=== PATIENT | female | born 1990 | race Caucasian/White ===

== ENCOUNTER 2016-08-27 10:43 | Emergency (ER) | payer MEDICARE, MEDICAID ==
[~2016-08-27 10:43] MED LIST: /AUGM875TA; ABIL5TAB; ACET65TA; ATEN25TA; AUGM500T34 PO; BACL-67 PO; CARD120T6; CEPA5.4L2 PO; DILT180C74 PO; DULO20CA; FERR28TA PO; FERR325T; FLUC150T PO; FLUO20CA8 PO; FLUOXETINE; HYDR-3713 PO; KLON0.5T; OMEP20TA PO; PRED10TA2; PRED20TA; PRED5TAB; PROT20TA11; PROZ10CA; PROZ20CA; TYLE325T5 PO; VITA100066 PO; XANA0.25; YAZ3TAB2; cepacol
[2016-08-27] MEDS ORDERED: MORPHINE 4 MG/ML 1ML SYRINGE As Ordered ONE (11:37)
[2016-08-27] MEDS ORDERED: ONDANSETRON 4MG/2ML VIAL (J2405) As Ordered ONE (11:37)
[2016-08-27 12:03] LABS: BASO % 0.5 % (0.0-1.0); EOS # 0.1 K/mm3 (0.0-0.50); EOS % 1.5 % (0.0-3.0); LARGE UNSTAINED CELL # 0.1 K/mm3 (0.0-0.4); LARGE UNSTAINED CELL % 1.7 % (0.0-4.0); LYMPH # 2.9 K/mm3 (1.5-6.5); LYMPH % 34.6 % (24.0-44.0); MEAN CORPUSCULAR HEMOGLOBIN 26.7 pg (27.0-33.0); MEAN CORPUSCULAR HGB CONC 33.5 g/dl (32.0-36.5); MEAN CORPUSCULAR VOLUME 79.7 fl (80.0-96.0); MONO # 0.3 K/mm3 (0.0-0.8); NEUTROPHILS # 4.8 K/mm3 (1.8-7.7); NEUTROPHILS % 57.8 % (36.0-66.0); PLATELET COUNT, AUTOMATED 308 k/mm3 (150-450); RED CELL DISTRIBUTION WIDTH 14.6 % (11.5-14.5); WHITE BLOOD COUNT 8.3 K/mm3 (4.0-10.0)
[2016-08-27 12:56] LABS: ALBUMIN 3.7 GM/DL (3.2-5.2); ALBUMIN/GLOBULIN RATIO 0.95 (1.00-1.93); ALKALINE PHOSPHATASE 110 U/L (45-117); ALT/SGPT 18 U/L (12-78); ANION GAP 10 MEQ/L (8-16); AST/SGOT 17 U/L (15-37); BILIRUBIN,TOTAL 0.3 MG/DL (0.2-1.0); BLOOD UREA NITROGEN 12 MG/DL (7-18); CALCIUM LEVEL 8.7 MG/DL (8.5-10.1); CARBON DIOXIDE LEVEL 24 MEQ/L (21-32); CHLORIDE LEVEL 107 MEQ/L (98-107); CREATININE FOR GFR 0.72 MG/DL (0.55-1.02); GLOMERULAR FILTRATION RATE > 60.0 (>60); GLUCOSE, FASTING 84 MG/DL (70-105); SODIUM LEVEL 141 MEQ/L (136-145); TOTAL PROTEIN 7.6 GM/DL (6.4-8.2)
--- NOTE | 2016-08-27 13:18 | ECGEPIP ---
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
--- NOTE | 2016-08-27 14:26 | EDDOCDS ---
Physician Documentation [facility] Name: Bisi Rosa Age: 25 yrs Sex: Female : 1990 Arrival Date: 08/27/2016 Time: 10:43 Bed I1 / M1 Private MD: Jian Gomez MD Disposition: 08/27/16 14:15 Discharged to Home/Self Care. Impression: Pelvic and perineal pain, Endometrial hyperplasia - Endometrial Polyp on Pelvic U/S. - Condition is Stable. - Discharge Instructions: Pelvic Pain, Female. - Prescriptions for Percocet 5- 325 mg Oral Tablet - take 1 tablet by ORAL route every 6 hours As needed MDD: 4 tabs; 10 tablet. - Medication Reconciliation, Local Pharmacy Hours form. - Follow up: Hetal Crowe; When: 1 - 2 days; Reason: Further diagnostic work-up, Recheck today's complaints, Continuance of care. Follow up: Emergency Department; Reason: Worsening of conditions. - Problem is new. - Symptoms have improved. Historical: - Allergies: hpv vaccine (Anaphylaxis); SHELLFISH (Anaphylaxis); - Home Meds: 1. baclofen 20 mg Oral tab 1 tab daily prn (Last dose: 08/26/2016) 2. diltiazem HCl 180 mg Oral cpER 1 cap once daily (Last dose: 08/26/2016) 3. Fluoxetine 30 mg Oral once daily (Last dose: 08/26/2016) 4. Motrin 800mg Oral as needed weeks ago (Last dose: 08/26/2016) 5. omeprazole 20 mg Oral cpDR 1 cap once daily (Last dose: 08/26/2016) 6. Vitamin D Oral 1000 unit daily (Last dose: 08/26/2016) - PMHx: Atrial Fib; Cerebral Palsy; Depression; thyroid nodule; - PSHx: Hamstring Lengthening; biopsy of thyroid; Pacemaker Insertion; - Social history: Smoking status: Patient states was never smoker of tobacco. No barriers to communication noted, The patient speaks fluent Macedonian, Speaks appropriately for age. - Family history: Not pertinent. - : The pt / caregiver states he / she is not on anticoagulants. Home medication list is obtained from the patient. - Exposure Risk Screening:: None identified. 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 8 in. (172.72 cm) (R); Pain 9/10; 14:13 BP 143 / 75; Pulse 75; Resp 18; Temp 98.1; Pulse Ox 98% ; Pain 2/10; jam1 10:46 Body Mass Index 34.97 (104.33 kg, 172.72 cm) mt4 MDM: 11:11 ECG WITH READING ER PHYS+CARDIAG ordered. EDMS 11:16 Financial registration complete. lg 11:20 [facility] Payment Agreement was scanned into [employer] and attached to record. lg 11:28 IV Saline Lock ordered. ef1 11:30 UA Ordered. EDMS 11:30 CBC with Diff Ordered. EDMS 11:30 Complete Comphrensive Metabolic Ordered. EDMS 11:30 Urine Culture Ordered. EDMS 11:30 -US Pelvic Non-Ob Complete Ordered. EDMS 11:30 DUPLEX SCAN LIMITED (DOPPLER)+US Ordered. EDMS 11:32 UCG by Nursing ordered. ef1 11:32 morphine 4 mg IVP once ordered. ef1 11:32 Ondansetron 4 mg IVP once ordered. ef1 12:26 CBC with Diff Reviewed. ef1 13:20 Transvaginal NON- US Ordered. EDMS 13:56 UA Reviewed. ef1 13:56 Complete Comphrensive Metabolic Reviewed. ef1 13:56 EKG-ADULT Reviewed. ef1 Point of Care Testing: Urine : 12:21 hCG Reading: Negative; Control Reading: Positive; jf3 Ranges: Administered Medications: 11:57 Drug: Ondansetron 4 mg [ondansetron HCl 2 mg/mL intravenous solution (2 mL)] Route: jf3 IVP; Site: right forearm; 12:00 Drug: morphine 4 mg [morphine 4 mg/mL intravenous cartridge (1 mL)] Route: IVP; Site: jf3 right forearm; Signatures: Dispatcher [employer] EDMS Daisy Quijano RN RN dls Ganter, LoriLee, Reg Reg Nora Cummings RN RN jo3 Priscilla Parish, PA-C PA-C ef1 Sergio Ugalde,RN RN jf3 The chart was reviewed and I authenticate all verbal orders and agree with the evaluation and treatment provided.Corrections: (The following items were deleted from the chart) 11:34 10:53 PSHx: Tubal ligation; jo3 kr3 Attachments: 11:20 [facility] Payment Agreement lg MTDD
--- NOTE | 2016-08-27 14:26 | EDDOCDS ---
Nurse's Notes [facility] Name: Taylor Schreiber Age: 25 yrs Sex: Female : 1990 Arrival Date: 08/27/2016 Time: 10:43 Bed I1 / M1 Private MD: Jian Gomez MD Diagnosis: Pelvic and perineal pain;Endometrial hyperplasia-Endometrial Polyp on Pelvic U/S Presentation: 08/27 10:49 Presenting complaint: Patient states: Left sided pelvic pain with light vaginal jo3 spotting which started a couple days ago. Risk factors: The patient reports no loss of conciousness prior to arrival. This patient has not had a hysterectomy. This patient has not begun menopause. Adult Sepsis Screening: The patient does not have new or worsening altered mentation. Patient's respiratory rate is less than 22. Systolic blood pressure is greater than 100. Patient has a qSOFA score of 0- Negative Sepsis Screen. Suicide/Homicide risk assessment- the patient denies having any suicidal and/or homicidal ideations and does not present with any other emotional, behavioral or mental health complaints. Status: Patient is not a service center appraiser or dependent. Transition of care: patient was not received from another setting of care. 10:49 Acuity: YANICK Level 3 jo3 10:49 Method Of Arrival: Walkin/Carried/Asstd jo3 Triage Assessment: 10:53 General: Appears in no apparent distress, comfortable, Behavior is appropriate for age, jo3 cooperative. Pain: Pain currently is 8 out of 10 on a pain scale. HIV screening NA for this visit Offered previously. Neurological: Level of Consciousness is awake, alert, Oriented to person, place, time. Respiratory: Airway is patent Respiratory effort is even, unlabored. 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 baclofen 20 mg Oral tab 1 tab daily prn (Last dose: 08/26/2016) 2. diltiazem HCl 180 mg Oral cpER 1 cap once daily (Last dose: 08/26/2016) 3. Fluoxetine 30 mg Oral once daily (Last dose: 08/26/2016) 4. Motrin 800mg Oral as needed weeks ago (Last dose: 08/26/2016) 5. omeprazole 20 mg Oral cpDR 1 cap once daily (Last dose: 08/26/2016) 6. Vitamin D Oral 1000 unit daily (Last dose: 08/26/2016) - PMHx: Atrial Fib; Cerebral Palsy; Depression; thyroid nodule; - PSHx: Hamstring Lengthening; biopsy of thyroid; Pacemaker Insertion; - Social history: Smoking status: Patient states was never smoker of tobacco. No barriers to communication noted, The patient speaks fluent East Timorese, Speaks appropriately for age. - Family history: Not pertinent. - : The pt / caregiver states he / she is not on anticoagulants. Home medication list is obtained from the patient. - Exposure Risk Screening:: None identified. Screenin:46 Screening information is obtained from the patient. Primary language is East Timorese. Fall jam1 risk: No risks identified. Assistance ADL's: requires no assistance with activities of daily living. Abuse/DV Screen: The patient / caregiver reports he/she is: not in a situation that causes fear, pain or injury. Nutritional screening: No deficits noted. Exposure Risk Screening: None identified. Advance Directives: Currently, there is a health care proxy, trent schreiber . There is no active DNR order. There is no living will. 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 Advance directive information has been placed on a prior [facility] medical record, but the patient/ family does not know when. Further advance directive information is declined. home support is adequate. Assessment: 12:18 General: Appears in no apparent distress, uncomfortable, Behavior is cooperative. Pain: jf3 Location: left lower quadrant. Pain: Pain currently is 8 out of 10 on a pain scale. Neurological: Level of Consciousness is awake, alert, Oriented to person, place, time. Cardiovascular: Capillary refill < 3 seconds. Cardiovascular: Chest pain is denied. Respiratory: Airway is patent Respiratory effort is even, unlabored, Respiratory pattern is regular, symmetrical, Breath sounds are clear bilaterally. Denies shortness of breath. GI: Abdomen is non- distended Bowel sounds present X 4 quads. Abd is soft and non tender X 4 quads. Denies diarrhea, nausea, vomiting. : Reports vaginal bleeding that is no vaginal bleeding. Derm: Skin is normal. Vital Signs: 10:46 BP 120 / 58 LA Sitting (auto/lg); Pulse 72 LA; Resp 18 S; Temp 98.8(O); Pulse Ox 95% on mt4 R/A; Weight 104.33 kg (R); Height 5 ft. 8 in. (172.72 cm) (R); Pain 9/10; 14:13 BP 143 / 75; Pulse 75; Resp 18; Temp 98.1; Pulse Ox 98% ; Pain 2/10; jam1 10:46 Body Mass Index 34.97 (104.33 kg, 172.72 cm) mt4 Vitals: 10:46 Log In Time: August 27, 2016 at 10:43. mt4 ED Course: 10:46 Patient visited by Emma Aj. mt4 10:46 Jian Gomez is Private Physician. mt4 10:46 Patient moved to Waiting mt4 10:47 Patient moved to Pre RCE mt4 10:51 Triage Initiated jo3 10:55 Patient visited by Nora Cummings RN. jo3 10:55 Patient moved to Triage 2 jo3 11:09 [facility]isc[facility] Parish [facility] ef1 11:09 Abhilash Fiore MD is Attending Physician. ef1 11:10 Patient visited by Priscilla Parish PA-C. ef1 11:14 Patient moved to PR2 / 26 jo3 11:19 Patient name changed from Taylor\S\Sandy\S\[place]\S\ to Taylor\S\A\S\[place]. EDMS 11:20 [facility] Payment Agreement was scanned into [employer] and attached to record. lg 11:29 Patient visited by Gracy Baltazar. sew 11:29 Patient moved to I1 / M1 sew 11:29 EKG done. (by ED staff). Reviewed by Priscilla Parish PA-C. sew 11:53 Patient visited by Priscilla Parish PA-C. ef1 11:56 Patient moved to Ultrasound sm5 12:01 Patient moved to I1 / M1 sm5 12:16 Pt greeted and oriented to ED. Patient advised of names of staff involved in care, jam1 location of call peoples, wait times and NPO status. Patient has correct armband on for positive identification. Bed in low position. Call light in reach. Side rails up X 1. Adult w/ patient. Door closed. 12:18 The patient / caregiver is instructed regarding the plan of care and ED course. jf3 12:18 Urine Culture Sent. jf3 12:18 UA Sent. jf3 12:18 Inserted saline lock: 20 gauge in right forearm The patient tolerated the procedure jf3 well. 12:26 Patient visited by Priscilla Parish PA-C. ef1 12:29 Patient moved to Ultrasound sm5 12:34 Patient moved to I1 / M1 sm5 12:47 Patient moved to Ultrasound sm5 13:22 Patient moved to I1 / M1 sm5 13:27 Patient visited by Priscilla Parish PA-C. ef1 13:43 EKG-ADULT Returned. EDMS 13:55 Patient visited by Priscilla Parish PA-C. ef1 14:15 Hetal Crowe MD is Referral Physician. ef1 14:24 Discontinued IV lock intact, bleeding controlled, pressure dressing applied, No dls redness/swelling at site. No procedures done that require assistance. Administered Medications: 11:57 Drug: Ondansetron 4 mg [ondansetron HCl 2 mg/mL intravenous solution (2 mL)] Route: 3 IVP; Site: right forearm; 12:00 Drug: morphine 4 mg [morphine 4 mg/mL intravenous cartridge (1 mL)] Route: IVP; Site: [facility] right forearm; Point of Care Testing: Urine : 12:21 hCG Reading: Negative; Control Reading: Positive; [facility] Ranges: Order Results: Lab Order: UA; SPEC'M 08/27/16 11:51 Test: APPEARANCE, URINE; Value: CLEAR; Range: CLEAR; Status: F Test: COLOR, URINE; Value: YELLOW; Range: YELLOW; Status: F Test: PH,URINE; Value: 5.0; Range: 5.0-9.0; Units: UNITS; Status: F Test: SPECIFIC GRAVITY URINE AUTO; Value: 1.023; Range: 1.002-1.035; Status: F Test: PROTEIN, URINE AUTO; Value: NEGATIVE; Range: NEGATIVE; Units: mg/dL; Status: F Test: GLUCOSE, URINE (UA) AUTO; Value: NEGATIVE; Range: NEGATIVE; Units: mg/dL; Status: F Test: KETONE, URINE AUTO; Value: NEGATIVE; Range: NEGATIVE; Units: mg/dL; Status: F Test: UROBILINOGEN, URINE AUTO; Value: 0.2; Range: 0.0-2.0; Units: mg/dL; Status: F Test: BILIRUBIN, URINE AUTO; Value: NEGATIVE; Range: NEGATIVE; Status: F Test: NITRITE, URINE AUTO; Value: NEGATIVE; Range: NEGATIVE; Status: F Test: LEUKOCYTE ESTERASE, URINE AUTO; Value: NEGATIVE; Range: NEGATIVE; Status: F Test: BLOOD, URINE BLOOD; Value: 3+; Range: NEGATIVE; Abnormal: Above high normal; Status: F Test: WBC, URINE AUTO; Value: 1; Range: 0-3; Units: /HPF; Status: F Test: RBC, URINE AUTO; Value: 4; Range: 0-3; Abnormal: Above high normal; Units: /HPF; Status: F Test: BACTERIA, URINE AUTO; Value: NEGATIVE; Range: NEGATIVE; Status: F Test: SQUAMOUS EPITHELIAL CELL UR AU; Value: 3; Range: 0-6; Units: /HPF; Status: F Test: HYALINE CAST, URINE AUTO; Value: 0; Range: 0-1; Units: /LPF; Status: F Lab Order: CBC with Diff; SPEC'M 08/27/16 11:51 Test: WHITE BLOOD COUNT; Value: 8.3; Range: 4.0-10.0; Units: K/mm3; Status: F Test: RED BLOOD COUNT; Value: 5.00; Range: 4.00-5.40; Units: M/mm3; Status: F Test: HEMOGLOBIN; Value: 13.4; Range: 12.0-16.0; Units: g/dl; Status: F Test: HEMATOCRIT; Value: 39.9; Range: 36.0-47.0; Units: %; Status: F Test: MEAN CORPUSCULAR VOLUME; Value: 79.7; Range: 80.0-96.0; Abnormal: Below low normal; Units: fl; Status: F Test: MEAN CORPUSCULAR HEMOGLOBIN; Value: 26.7; Range: 27.0-33.0; Abnormal: Below low normal; Units: pg; Status: F Test: MEAN CORPUSCULAR HGB CONC; Value: 33.5; Range: 32.0-36.5; Units: g/dl; Status: F Test: RED CELL DISTRIBUTION WIDTH; Value: 14.6; Range: 11.5-14.5; Abnormal: Above high normal; Units: %; Status: F Test: PLATELET COUNT, AUTOMATED; Value: 308; Range: 150-450; Units: k/mm3; Status: F Test: NEUTROPHILS %; Value: 57.8; Range: 36.0-66.0; Units: %; Status: F Test: LYMPH %; Value: 34.6; Range: 24.0-44.0; Units: %; Status: F Test: MONO %; Value: 4.0; Range: 0.0-5.0; Units: %; Status: F Test: EOS %; Value: 1.5; Range: 0.0-3.0; Units: %; Status: F Test: BASO %; Value: 0.5; Range: 0.0-1.0; Units: %; Status: F Test: LARGE UNSTAINED CELL %; Value: 1.7; Range: 0.0-4.0; Units: %; Status: F Test: NEUTROPHILS #; Value: 4.8; Range: 1.8-7.7; Units: K/mm3; Status: F Test: LYMPH #; Value: 2.9; Range: 1.5-6.5; Units: K/mm3; Status: F Test: MONO #; Value: 0.3; Range: 0.0-0.8; Units: K/mm3; Status: F Test: EOS #; Value: 0.1; Range: 0.0-0.50; Units: K/mm3; Status: F Test: BASO #; Value: 0.0; Range: 0.0-0.2; Units: K/mm3; Status: F Test: LARGE UNSTAINED CELL #; Value: 0.1; Range: 0.0-0.4; Units: K/mm3; Status: F Lab Order: Complete Comphrensive Metabolic; SPEC'M 08/27/16 12:32 Test: GLUCOSE, FASTING; Value: 84; Range: 70-105; Units: MG/DL; Status: F Test: BLOOD UREA NITROGEN; Value: 12; Range: 7-18; Units: MG/DL; Status: F Test: CREATININE FOR GFR; Value: 0.72; Range: 0.55-1.02; Units: MG/DL; Status: F Test: GLOMERULAR FILTRATION RATE; Value: > 60.0; Range: >60; Status: F Test: SODIUM LEVEL; Value: 141; Range: 136-145; Units: MEQ/L; Status: F Test: POTASSIUM SERUM; Value: 4.0; Range: 3.5-5.1; Units: MEQ/L; Status: F Test: CHLORIDE LEVEL; Value: 107; Range: 98-107; Units: MEQ/L; Status: F Test: CARBON DIOXIDE LEVEL; Value: 24; Range: 21-32; Units: MEQ/L; Status: F Test: ANION GAP; Value: 10; Range: 8-16; Units: MEQ/L; Status: F Test: CALCIUM LEVEL; Value: 8.7; Range: 8.5-10.1; Units: MG/DL; Status: F Test: AST/SGOT; Value: 17; Range: 15-37; Units: U/L; Status: F Test: ALT/SGPT; Value: 18; Range: 12-78; Units: U/L; Status: F Test: ALKALINE PHOSPHATASE; Value: 110; Range: 45-117; Units: U/L; Status: F Test: BILIRUBIN,TOTAL; Value: 0.3; Range: 0.2-1.0; Units: MG/DL; Status: F Test: TOTAL PROTEIN; Value: 7.6; Range: 6.4-8.2; Units: GM/DL; Status: F Test: ALBUMIN; Value: 3.7; Range: 3.2-5.2; Units: GM/DL; Status: F Test: ALBUMIN/GLOBULIN RATIO; Value: 0.95; Range: 1.00-1.93; Abnormal: Below low normal; Status: F Test Note: ; Units are mL/min/1.73 m2 Chronic Kidney Disease Staging per NKF: Stage I & II GFR >=60 Normal to Mildly Decreased Stage III GFR 30-59 Moderately Decreased Stage IV GFR 15-29 Severely Decreased Stage V GFR <15 Very Little GFR Left ESRD GFR <15 on ARTERIAL EMBALMER Radiology Order: EKG-ADULT Test: EKG-ADULT REASON FOR EXAMINATION: dizziness; Stationary ECG Study; [facility] - ED; ; Test Date: 2016-08-27; Pat Name: TAYLOR SCHREIBER Department:; Room: -; Gender: F 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 ef1 14:24 Discharge Assessment: Patient awake, alert and oriented x 3. No cognitive and/or dls functional deficits noted. Patient verbalized understanding of disposition instructions. patient administered narcotics - no. The following High Risk Discharge criteria are identified: None. Discharged to home via wheelchair, with significant other. Condition: stable. Discharge instructions given to patient, Instructed on discharge instructions, follow up and referral plans. medication usage, Demonstrated understanding of instructions, medications, Pt was receptive of discharge instructions/ teaching. Prescriptions given X 1. Ultrasound Study completed. Property sent home with patient. 14:26 Patient left the ED. dls Signatures: Dispatcher [employer] EDMS Daisy Quijano, RN RN dls Romelia Rose, MULTIPLEX OPERATOR MULTIPLEX OPERATOR jam1 Iván Alonso, Reg Reg lg Jessica Hector 5 Nora CummingsRN RN jo3 Emma Aj ut4 Priscilla Parish PA-C PA-C ef1 Gracy Baltazar Justin,RN RN jf3 Corrections: (The following items were deleted from the chart) 11:34 10:53 PSHx: Tubal ligation; jo3 kr3 MTDD
--- NOTE | 2016-08-27 20:47 | REP ---
Pelvic ultrasound non OB 08/27/2016 Indication: Pelvic pain Comparison CT abdomen pelvis 03/23/2016, pelvic ultrasound 12/23 15 performed transabdominally Technique: Color-flow Doppler, spectral wave Doppler, melendez-scale imaging used to evaluate the pelvis. Findings: Date of last menstrual period 08/01/2016. The patient is G1 P 0 Uterus measures 8.3 x 2.9 x 3.9 cm. The endometrium is 17.5 mm in thickness. Hyperechoic rounded structure within the endometrium measures 1.5 x 1.2 x 1.2 cm, concerning for endometrial polyp. The right ovary measures 3.5 x 1.9 by 2 cm. Left ovary measures 3.6 x 1.8 x 2.4 cm. There are small bilateral ovarian follicles. Perfusion is noted to the bilateral ovaries and there is no torsion bilaterally. There is no free fluid in cul-de-sac. Impression: Findings concerning for an endometrial polyp measuring 1.5 x 1.2 x 1.2 cm. MAINTENANCE CLERK consultation is recommended. Ovaries are unremarkable without torsion. No free fluid in cul-de-sac.. Signed by Lori Massey MD 08/27/2016 08:38 P
--- NOTE | 2016-08-29 15:27 | EDDOCDS ---
Nurse's Notes [facility] Name: Bisi Schreiber Age: 25 yrs Sex: Female : 1990 Arrival Date: 08/27/2016 Time: 10:43 Bed I1 / M1 Private MD: Jian Gomez MD Diagnosis: Pelvic and perineal pain;Endometrial hyperplasia-Endometrial Polyp on Pelvic U/S Presentation: 08/27 10:49 Presenting complaint: Patient states: Left sided pelvic pain with light vaginal jo3 spotting which started a couple days ago. Risk factors: The patient reports no loss of conciousness prior to arrival. This patient has not had a hysterectomy. This patient has not begun menopause. Adult Sepsis Screening: The patient does not have new or worsening altered mentation. Patient's respiratory rate is less than 22. Systolic blood pressure is greater than 100. Patient has a qSOFA score of 0- Negative Sepsis Screen. Suicide/Homicide risk assessment- the patient denies having any suicidal and/or homicidal ideations and does not present with any other emotional, behavioral or mental health complaints. Status: Patient is not a track service person or dependent. Transition of care: patient was not received from another setting of care. 10:49 Acuity: YANICK Level 3 jo3 10:49 Method Of Arrival: Walkin/Carried/Asstd jo3 Triage Assessment: 10:53 General: Appears in no apparent distress, comfortable, Behavior is appropriate for age, jo3 cooperative. Pain: Pain currently is 8 out of 10 on a pain scale. HIV screening NA for this visit Offered previously. Neurological: Level of Consciousness is awake, alert, Oriented to person, place, time. Respiratory: Airway is patent Respiratory effort is even, unlabored. 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 baclofen 20 mg Oral tab 1 tab daily prn (Last dose: 08/26/2016) 2. diltiazem HCl 180 mg Oral cpER 1 cap once daily (Last dose: 08/26/2016) 3. Fluoxetine 30 mg Oral once daily (Last dose: 08/26/2016) 4. Motrin 800mg Oral as needed weeks ago (Last dose: 08/26/2016) 5. omeprazole 20 mg Oral cpDR 1 cap once daily (Last dose: 08/26/2016) 6. Vitamin D Oral 1000 unit daily (Last dose: 08/26/2016) - PMHx: Atrial Fib; Cerebral Palsy; Depression; thyroid nodule; - PSHx: Hamstring Lengthening; biopsy of thyroid; Pacemaker Insertion; - Social history: Smoking status: Patient states was never smoker of tobacco. No barriers to communication noted, The patient speaks fluent Cymro, Speaks appropriately for age. - Family history: Not pertinent. - : The pt / caregiver states he / she is not on anticoagulants. Home medication list is obtained from the patient. - Exposure Risk Screening:: None identified. Screenin:46 Screening information is obtained from the patient. Primary language is Cymro. Fall jam1 risk: No risks identified. Assistance ADL's: requires no assistance with activities of daily living. Abuse/DV Screen: The patient / caregiver reports he/she is: not in a situation that causes fear, pain or injury. Nutritional screening: No deficits noted. Exposure Risk Screening: None identified. Advance Directives: Currently, there is a health care proxy, trent schreiber . There is no active DNR order. There is no living will. There is no Power of Rayon Coner. Advance directive information has been placed on a prior [facility] medical record, but the patient/ family does not know when. Further advance directive information is declined. home support is adequate. Assessment: 12:18 General: Appears in no apparent distress, uncomfortable, Behavior is cooperative. Pain: jf3 Location: left lower quadrant. Pain: Pain currently is 8 out of 10 on a pain scale. Neurological: Level of Consciousness is awake, alert, Oriented to person, place, time. Cardiovascular: Capillary refill < 3 seconds. Cardiovascular: Chest pain is denied. Respiratory: Airway is patent Respiratory effort is even, unlabored, Respiratory pattern is regular, symmetrical, Breath sounds are clear bilaterally. Denies shortness of breath. GI: Abdomen is non- distended Bowel sounds present X 4 quads. Abd is soft and non tender X 4 quads. Denies diarrhea, nausea, vomiting. : Reports vaginal bleeding that is no vaginal bleeding. Derm: Skin is normal. Vital Signs: 10:46 BP 120 / 58 LA Sitting (auto/lg); Pulse 72 LA; Resp 18 S; Temp 98.8(O); Pulse Ox 95% on mt4 R/A; Weight 104.33 kg (R); Height 5 ft. 8 in. (172.72 cm) (R); Pain 9/10; 14:13 BP 143 / 75; Pulse 75; Resp 18; Temp 98.1; Pulse Ox 98% ; Pain 2/10; jam1 10:46 Body Mass Index 34.97 (104.33 kg, 172.72 cm) mt4 Vitals: 10:46 Log In Time: August 27, 2016 at 10:43. mt4 ED Course: 10:46 Patient visited by Emma Aj. mt4 10:46 Jian Gomez is Private Physician. mt4 10:46 Patient moved to Waiting mt4 10:47 Patient moved to Pre RCE mt4 10:51 Triage Initiated jo3 10:55 Patient visited by Nora Cummings RN. jo3 10:55 Patient moved to Triage 2 jo3 11:09 Prisc[facility] ef1 11:09 Abhilash Fiore MD is Attending Physician. ef1 11:10 Patient visited by Priscilla Parish PA-C. ef1 11:14 Patient moved to PR2 / 26 jo3 11:19 Patient name changed from Bisi\S\[place]\S\[place]\S\ to Bisi\S\A\S\[place]. EDMS 11:20 [facility] Payment Agreement was scanned into [employer] and attached to record. lg 11:29 Patient visited by Gracy Baltazar. sew 11:29 Patient moved to I1 / M1 sew 11:29 EKG done. (by ED staff). Reviewed by Priscilla Parish PA-C. sew 11:53 Patient visited by Priscilla Parish PA-C. ef1 11:56 Patient moved to Ultrasound sm5 12:01 Patient moved to I1 / M1 sm5 12:16 Pt greeted and oriented to ED. Patient advised of names of staff involved in care, jam1 location of call peoples, wait times and NPO status. Patient has correct armband on for positive identification. Bed in low position. Call light in reach. Side rails up X 1. Adult w/ patient. Door closed. 12:18 The patient / caregiver is instructed regarding the plan of care and ED course. jf3 12:18 Urine Culture Sent. jf3 12:18 UA Sent. jf3 12:18 Inserted saline lock: 20 gauge in right forearm The patient tolerated the procedure jf3 well. 12:26 Patient visited by Priscilla Parish PA-C. ef1 12:29 Patient moved to Ultrasound sm5 12:34 Patient moved to I1 / M1 sm5 12:47 Patient moved to Ultrasound sm5 13:22 Patient moved to I1 / M1 sm5 13:27 Patient visited by Priscilla Parish PA-C. ef1 13:43 EKG-ADULT Returned. EDMS 13:55 Patient visited by Priscilla Parish PA-C. ef1 14:15 Hetal Crowe MD is Referral Physician. ef1 14:24 Discontinued IV lock intact, bleeding controlled, pressure dressing applied, No dls redness/swelling at site. No procedures done that require assistance. 17:28 ECG/EKG was scanned into [employer] and attached to record. kf3 19:35 T-Sheet-- Draft Copy was scanned into [employer] and attached to record. klr 20:58 -US Pelvic Non-Ob Complete Returned. EDMS Administered Medications: 11:57 Drug: Ondansetron 4 mg [ondansetron HCl 2 mg/mL intravenous solution (2 mL)] Route: 3 IVP; Site: right forearm; 12:00 Drug: morphine 4 mg [morphine 4 mg/mL intravenous cartridge (1 mL)] Route: IVP; Site: [facility] right forearm; Point of Care Testing: Urine : 12:21 hCG Reading: Negative; Control Reading: Positive; [facility] Ranges: Order Results: Lab Order: UA; SPEC'M 08/27/16 11:51 Test: APPEARANCE, URINE; Value: CLEAR; Range: CLEAR; Status: F Test: COLOR, URINE; Value: YELLOW; Range: YELLOW; Status: F Test: PH,URINE; Value: 5.0; Range: 5.0-9.0; Units: UNITS; Status: F Test: SPECIFIC GRAVITY URINE AUTO; Value: 1.023; Range: 1.002-1.035; Status: F Test: PROTEIN, URINE AUTO; Value: NEGATIVE; Range: NEGATIVE; Units: mg/dL; Status: F Test: GLUCOSE, URINE (UA) AUTO; Value: NEGATIVE; Range: NEGATIVE; Units: mg/dL; Status: F Test: KETONE, URINE AUTO; Value: NEGATIVE; Range: NEGATIVE; Units: mg/dL; Status: F Test: UROBILINOGEN, URINE AUTO; Value: 0.2; Range: 0.0-2.0; Units: mg/dL; Status: F Test: BILIRUBIN, URINE AUTO; Value: NEGATIVE; Range: NEGATIVE; Status: F Test: NITRITE, URINE AUTO; Value: NEGATIVE; Range: NEGATIVE; Status: F Test: LEUKOCYTE ESTERASE, URINE AUTO; Value: NEGATIVE; Range: NEGATIVE; Status: F Test: BLOOD, URINE BLOOD; Value: 3+; Range: NEGATIVE; Abnormal: Above high normal; Status: F Test: WBC, URINE AUTO; Value: 1; Range: 0-3; Units: /HPF; Status: F Test: RBC, URINE AUTO; Value: 4; Range: 0-3; Abnormal: Above high normal; Units: /HPF; Status: F Test: BACTERIA, URINE AUTO; Value: NEGATIVE; Range: NEGATIVE; Status: F Test: SQUAMOUS EPITHELIAL CELL UR AU; Value: 3; Range: 0-6; Units: /HPF; Status: F Test: HYALINE CAST, URINE AUTO; Value: 0; Range: 0-1; Units: /LPF; Status: F Lab Order: Urine Culture; SPEC'M 08/27/16 11:51 Test: URINE CULTURE; Value: <EXTERNAL COMMENT eCWMed> FULL REPORT IN LAB NOTES (eCW and Medent).; Status: F Test: URINE CULTURE; Value: URINE CULTURE RESULT NO GROWTH; Status: F Lab Order: CBC with Diff; SPEC'M 08/27/16 11:51 Test: WHITE BLOOD COUNT; Value: 8.3; Range: 4.0-10.0; Units: K/mm3; Status: F Test: RED BLOOD COUNT; Value: 5.00; Range: 4.00-5.40; Units: M/mm3; Status: F Test: HEMOGLOBIN; Value: 13.4; Range: 12.0-16.0; Units: g/dl; Status: F Test: HEMATOCRIT; Value: 39.9; Range: 36.0-47.0; Units: %; Status: F Test: MEAN CORPUSCULAR VOLUME; Value: 79.7; Range: 80.0-96.0; Abnormal: Below low normal; Units: fl; Status: F Test: MEAN CORPUSCULAR HEMOGLOBIN; Value: 26.7; Range: 27.0-33.0; Abnormal: Below low normal; Units: pg; Status: F Test: MEAN CORPUSCULAR HGB CONC; Value: 33.5; Range: 32.0-36.5; Units: g/dl; Status: F Test: RED CELL DISTRIBUTION WIDTH; Value: 14.6; Range: 11.5-14.5; Abnormal: Above high normal; Units: %; Status: F Test: PLATELET COUNT, AUTOMATED; Value: 308; Range: 150-450; Units: k/mm3; Status: F Test: NEUTROPHILS %; Value: 57.8; Range: 36.0-66.0; Units: %; Status: F Test: LYMPH %; Value: 34.6; Range: 24.0-44.0; Units: %; Status: F Test: MONO %; Value: 4.0; Range: 0.0-5.0; Units: %; Status: F Test: EOS %; Value: 1.5; Range: 0.0-3.0; Units: %; Status: F Test: BASO %; Value: 0.5; Range: 0.0-1.0; Units: %; Status: F Test: LARGE UNSTAINED CELL %; Value: 1.7; Range: 0.0-4.0; Units: %; Status: F Test: NEUTROPHILS #; Value: 4.8; Range: 1.8-7.7; Units: K/mm3; Status: F Test: LYMPH #; Value: 2.9; Range: 1.5-6.5; Units: K/mm3; Status: F Test: MONO #; Value: 0.3; Range: 0.0-0.8; Units: K/mm3; Status: F Test: EOS #; Value: 0.1; Range: 0.0-0.50; Units: K/mm3; Status: F Test: BASO #; Value: 0.0; Range: 0.0-0.2; Units: K/mm3; Status: F Test: LARGE UNSTAINED CELL #; Value: 0.1; Range: 0.0-0.4; Units: K/mm3; Status: F Lab Order: Complete Comphrensive Metabolic; SPEC'M 08/27/16 12:32 Test: GLUCOSE, FASTING; Value: 84; Range: 70-105; Units: MG/DL; Status: F Test: BLOOD UREA NITROGEN; Value: 12; Range: 7-18; Units: MG/DL; Status: F Test: CREATININE FOR GFR; Value: 0.72; Range: 0.55-1.02; Units: MG/DL; Status: F Test: GLOMERULAR FILTRATION RATE; Value: > 60.0; Range: >60; Status: F Test: SODIUM LEVEL; Value: 141; Range: 136-145; Units: MEQ/L; Status: F Test: POTASSIUM SERUM; Value: 4.0; Range: 3.5-5.1; Units: MEQ/L; Status: F Test: CHLORIDE LEVEL; Value: 107; Range: 98-107; Units: MEQ/L; Status: F Test: CARBON DIOXIDE LEVEL; Value: 24; Range: 21-32; Units: MEQ/L; Status: F Test: ANION GAP; Value: 10; Range: 8-16; Units: MEQ/L; Status: F Test: CALCIUM LEVEL; Value: 8.7; Range: 8.5-10.1; Units: MG/DL; Status: F Test: AST/SGOT; Value: 17; Range: 15-37; Units: U/L; Status: F Test: ALT/SGPT; Value: 18; Range: 12-78; Units: U/L; Status: F Test: ALKALINE PHOSPHATASE; Value: 110; Range: 45-117; Units: U/L; Status: F Test: BILIRUBIN,TOTAL; Value: 0.3; Range: 0.2-1.0; Units: MG/DL; Status: F Test: TOTAL PROTEIN; Value: 7.6; Range: 6.4-8.2; Units: GM/DL; Status: F Test: ALBUMIN; Value: 3.7; Range: 3.2-5.2; Units: GM/DL; Status: F Test: ALBUMIN/GLOBULIN RATIO; Value: 0.95; Range: 1.00-1.93; Abnormal: Below low normal; Status: F Test Note: ; Units are mL/min/1.73 m2 Chronic Kidney Disease Staging per NKF: Stage I & II GFR >=60 Normal to Mildly Decreased Stage III GFR 30-59 Moderately Decreased Stage IV GFR 15-29 Severely Decreased Stage V GFR <15 Very Little GFR Left ESRD GFR <15 on PSYCHIATRIC SECRETARY Radiology Order: EKG-ADULT Test: EKG-ADULT REASON FOR EXAMINATION: dizziness; Stationary ECG Study; [facility] - ED; ; Test Date: 2016-08-27; Pat Name: BISI SCHREIBER Department:; Room: -; 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; : 1990 Requested By: Prisclila Parish PA-C; Order Number: [id number] Reading MD: Gracy Barfield; Measurements; Intervals [place]; Rate: 71 P: 166; MT: 211 QRS: 50; QRSD: 89 T: 28; QT: 393; QTc: 429; Interpretive Statements; ELECTRONIC ATRIAL PACEMAKER; ABNORMAL RHYTHM ECG; SINUS RHYTHM; Electronically Signed On 08-27-2016 13:18:17 EST by Gracy Barfield; Radiology Order: -US Pelvic Non-Ob Complete Test: -US Pelvic Non-Ob Complete REASON FOR EXAMINATION: Adnexal Pain r/o Torsion; Pelvic ultrasound non OB 08/27/2016; ; Indication: Pelvic pain; ; Comparison CT abdomen pelvis 03/23/2016, pelvic ultrasound 12/23 15 performed; transabdominally; ; Technique: Color-flow Doppler, spectral wave Doppler, melendez-scale imaging used to; evaluate the pelvis.; ; Findings: Date of last menstrual period 08/01/2016. The patient is G1 P 0; ; Uterus measures 8.3 x 2.9 x 3.9 cm. The endometrium is 17.5 mm in thickness.; Hyperechoic rounded structure within the endometrium measures 1.5 x 1.2 x 1.2 cm,; concerning for endometrial polyp.; ; The right ovary measures 3.5 x 1.9 by 2 cm. Left ovary measures 3.6 x 1.8 x 2.4; cm. There are small bilateral ovarian follicles. Perfusion is noted to the; bilateral ovaries and there is no torsion bilaterally.; ; There is no free fluid in cul-de-sac.; ; Impression:; ; Findings concerning for an endometrial polyp measuring 1.5 x 1.2 x 1.2 cm. CONFERENCE SERVICES DIRECTOR; consultation is recommended.; ; Ovaries are unremarkable without torsion.; ; No free fluid in cul-de-sac..; ; ; ; ; ; ; Signed by; Lori Massey MD 08/27/2016 08:38 P; Outcome: 14:15 Discharge ordered by Provider. ef1 14:24 Discharge Assessment: Patient awake, alert and oriented x 3. No cognitive and/or dls functional deficits noted. Patient verbalized understanding of disposition instructions. patient administered narcotics - no. The following High Risk Discharge criteria are identified: None. Discharged to home via wheelchair, with significant other. Condition: stable. Discharge instructions given to patient, Instructed on discharge instructions, follow up and referral plans. medication usage, Demonstrated understanding of instructions, medications, Pt was receptive of discharge instructions/ teaching. Prescriptions given X 1. Ultrasound Study completed. Property sent home with patient. 14:26 Patient left the ED. dls Signatures: Dispatcher [employer] EDMS Daisy Quijano RN RN dls Romelia Rose, CLIENT ACCOUNT MANAGER CLIENT ACCOUNT MANAGER jam1 Iván Alonso, Reg Reg lg Jessica Hector sm5 Nora Cummings RN RN lina3 Allen Mane, Reg Reg kf3 Jean Marie, Emma mt4 Priscilla Parish, PA-Aurea PA-C ef1 Gracy Baltazar Justin,RN RN razia3 Shwetha Saucedo Corrections: (The following items were deleted from the chart) 11:34 10:53 PSHx: Tubal ligation; lina3 zulay3 Chart Complete MTDD
--- NOTE | 2016-08-29 15:27 | EDDOCDS ---
Physician Documentation [facility] Name: Bisi Rosa Age: 25 yrs Sex: Female : 1990 Arrival Date: 08/27/2016 Time: 10:43 Bed I1 / M1 Private MD: Jian Gomez MD Disposition: 08/27/16 14:15 Discharged to Home/Self Care. Impression: Pelvic and perineal pain, Endometrial hyperplasia - Endometrial Polyp on Pelvic U/S. - Condition is Stable. - Discharge Instructions: Pelvic Pain, Female. - Prescriptions for Percocet 5- 325 mg Oral Tablet - take 1 tablet by ORAL route every 6 hours As needed MDD: 4 tabs; 10 tablet. - Medication Reconciliation, Local Pharmacy Hours form. - Follow up: Hetal Crowe; When: 1 - 2 days; Reason: Further diagnostic work-up, Recheck today's complaints, Continuance of care. Follow up: Emergency Department; Reason: Worsening of conditions. - Problem is new. - Symptoms have improved. Historical: - Allergies: hpv vaccine (Anaphylaxis); SHELLFISH (Anaphylaxis); - Home Meds: 1. baclofen 20 mg Oral tab 1 tab daily prn (Last dose: 08/26/2016) 2. diltiazem HCl 180 mg Oral cpER 1 cap once daily (Last dose: 08/26/2016) 3. Fluoxetine 30 mg Oral once daily (Last dose: 08/26/2016) 4. Motrin 800mg Oral as needed weeks ago (Last dose: 08/26/2016) 5. omeprazole 20 mg Oral cpDR 1 cap once daily (Last dose: 08/26/2016) 6. Vitamin D Oral 1000 unit daily (Last dose: 08/26/2016) - PMHx: Atrial Fib; Cerebral Palsy; Depression; thyroid nodule; - PSHx: Hamstring Lengthening; biopsy of thyroid; Pacemaker Insertion; - Social history: Smoking status: Patient states was never smoker of tobacco. No barriers to communication noted, The patient speaks fluent Bulgarian, Speaks appropriately for age. - Family history: Not pertinent. - : The pt / caregiver states he / she is not on anticoagulants. Home medication list is obtained from the patient. - Exposure Risk Screening:: None identified. 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 8 in. (172.72 cm) (R); Pain 9/10; 14:13 BP 143 / 75; Pulse 75; Resp 18; Temp 98.1; Pulse Ox 98% ; Pain 2/10; jam1 10:46 Body Mass Index 34.97 (104.33 kg, 172.72 cm) mt4 MDM: 11:11 ECG WITH READING ER PHYS+CARDIAG ordered. EDMS 11:16 Financial registration complete. lg 11:20 [facility] [place] was scanned into [employer] and attached to record. lg 11:28 IV Saline Lock ordered. ef1 11:30 UA Ordered. EDMS 11:30 CBC with Diff Ordered. EDMS 11:30 Complete Comphrensive Metabolic Ordered. EDMS 11:30 Urine Culture Ordered. EDMS 11:30 -US Pelvic Non-Ob Complete Ordered. EDMS 11:30 DUPLEX SCAN LIMITED (DOPPLER)+US Ordered. EDMS 11:32 UCG by Nursing ordered. ef1 11:32 morphine 4 mg IVP once ordered. ef1 11:32 Ondansetron 4 mg IVP once ordered. ef1 12:26 CBC with Diff Reviewed. ef1 13:20 Transvaginal NON- US Ordered. EDMS 13:56 UA Reviewed. ef1 13:56 Complete Comphrensive Metabolic Reviewed. ef1 13:56 EKG-ADULT Reviewed. ef1 17:28 ECG/EKG was scanned into [employer] and attached to record. kf3 19:35 T-Sheet-- Draft Copy was scanned into [employer] and attached to record. klr Point of Care Testing: Urine : 12:21 hCG Reading: Negative; Control Reading: Positive; jf3 Ranges: Administered Medications: 11:57 Drug: Ondansetron 4 mg [ondansetron HCl 2 mg/mL intravenous solution (2 mL)] Route: jf3 IVP; Site: right forearm; 12:00 Drug: morphine 4 mg [morphine 4 mg/mL intravenous cartridge (1 mL)] Route: IVP; Site: jf3 right forearm; Signatures: Dispatcher [employer] EDOK Samm, Daisy, RN RN dls Iván Alonso, Reg Reg lg Nora Cummings RN RN jo3 Allen Mane, Reg Reg kf3 Priscilla Parish, CLAUDIA PAKhadijah ef1 Sergio Ugalde RN RN jf3 Shwetha Saucedo klbang The chart was reviewed and I authenticate all verbal orders and agree with the evaluation and treatment provided.Corrections: (The following items were deleted from the chart) 11:34 10:53 PSHx: Tubal ligation; jo3 kr3 Attachments: 11:20 [facility] [place] Agreement lg 17:28 ECG/EKG kf3 19:35 T-Sheet-- Draft Copy klr Chart Complete MTDD
--- NOTE | 2016-08-29 15:27 | EDDOCDS ---
Physician Documentation [facility] Name: Bisi Rosa Age: 25 yrs Sex: Female : 1990 Arrival Date: 08/27/2016 Time: 10:43 Bed I1 / M1 Private MD: Jian Gomez MD Disposition: 08/27/16 14:15 Discharged to Home/Self Care. Impression: Pelvic and perineal pain, Endometrial hyperplasia - Endometrial Polyp on Pelvic U/S. - Condition is Stable. - Discharge Instructions: Pelvic Pain, Female. - Prescriptions for Percocet 5- 325 mg Oral Tablet - take 1 tablet by ORAL route every 6 hours As needed MDD: 4 tabs; 10 tablet. - Medication Reconciliation, Local Pharmacy Hours form. - Follow up: Hetal Crowe; When: 1 - 2 days; Reason: Further diagnostic work-up, Recheck today's complaints, Continuance of care. Follow up: Emergency Department; Reason: Worsening of conditions. - Problem is new. - Symptoms have improved. Historical: - Allergies: hpv vaccine (Anaphylaxis); SHELLFISH (Anaphylaxis); - Home Meds: 1. baclofen 20 mg Oral tab 1 tab daily prn (Last dose: 08/26/2016) 2. diltiazem HCl 180 mg Oral cpER 1 cap once daily (Last dose: 08/26/2016) 3. Fluoxetine 30 mg Oral once daily (Last dose: 08/26/2016) 4. Motrin 800mg Oral as needed weeks ago (Last dose: 08/26/2016) 5. omeprazole 20 mg Oral cpDR 1 cap once daily (Last dose: 08/26/2016) 6. Vitamin D Oral 1000 unit daily (Last dose: 08/26/2016) - PMHx: Atrial Fib; Cerebral Palsy; Depression; thyroid nodule; - PSHx: Hamstring Lengthening; biopsy of thyroid; Pacemaker Insertion; - Social history: Smoking status: Patient states was never smoker of tobacco. No barriers to communication noted, The patient speaks fluent Amharic, Speaks appropriately for age. - Family history: Not pertinent. - : The pt / caregiver states he / she is not on anticoagulants. Home medication list is obtained from the patient. - Exposure Risk Screening:: None identified. 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 8 in. (172.72 cm) (R); Pain 9/10; 14:13 BP 143 / 75; Pulse 75; Resp 18; Temp 98.1; Pulse Ox 98% ; Pain 2/10; jam1 10:46 Body Mass Index 34.97 (104.33 kg, 172.72 cm) mt4 MDM: 11:11 ECG WITH READING ER PHYS+CARDIAG ordered. EDMS 11:16 Financial registration complete. lg 11:20 [place] [place] was scanned into [employer] and attached to record. lg 11:28 IV Saline Lock ordered. ef1 11:30 UA Ordered. EDMS 11:30 CBC with Diff Ordered. EDMS 11:30 Complete Comphrensive Metabolic Ordered. EDMS 11:30 Urine Culture Ordered. EDMS 11:30 -US Pelvic Non-Ob Complete Ordered. EDMS 11:30 DUPLEX SCAN LIMITED (DOPPLER)+US Ordered. EDMS 11:32 UCG by Nursing ordered. ef1 11:32 morphine 4 mg IVP once ordered. ef1 11:32 Ondansetron 4 mg IVP once ordered. ef1 12:26 CBC with Diff Reviewed. ef1 13:20 Transvaginal NON- US Ordered. EDMS 13:56 UA Reviewed. ef1 13:56 Complete Comphrensive Metabolic Reviewed. ef1 13:56 EKG-ADULT Reviewed. ef1 17:28 ECG/EKG was scanned into [employer] and attached to record. kf3 19:35 T-Sheet-- Draft Copy was scanned into [employer] and attached to record. klr Point of Care Testing: Urine : 12:21 hCG Reading: Negative; Control Reading: Positive; jf3 Ranges: Administered Medications: 11:57 Drug: Ondansetron 4 mg [ondansetron HCl 2 mg/mL intravenous solution (2 mL)] Route: jf3 IVP; Site: right forearm; 12:00 Drug: morphine 4 mg [morphine 4 mg/mL intravenous cartridge (1 mL)] Route: IVP; Site: jf3 right forearm; Signatures: Dispatcher [employer] EDDC Samm, Daisy, RN RN dls Iván Alonso, Reg Reg lg Nora Cummings RN RN jo3 Allen Mane, Reg Reg kf3 Priscilla Parish, CLAUDIA PAKhadijah ef1 Sergio Ugalde RN RN jf3 Shwetha Saucedo klbang The chart was reviewed and I authenticate all verbal orders and agree with the evaluation and treatment provided.Corrections: (The following items were deleted from the chart) 11:34 10:53 PSHx: Tubal ligation; jo3 kr3 Attachments: 11:20 [place] [place] lg 17:28 ECG/EKG kf3 19:35 T-Sheet-- Draft Copy klr Chart Complete MTDD
== END 2016-08-27 14:26 | disposition home or self-care (01) ==
LOC: M ED 10:43
DX: N84.0 Polyp of corpus uteri (principal); I48.91 Unspecified atrial fibrillation; G80.9 Cerebral palsy, unspecified; F31.9 Bipolar disorder, unspecified; Z95.0 Presence of cardiac pacemaker; Z79.899 Other long term (current) drug therapy; Z88.7 Allergy status to serum and vaccine; Z91.013 Allergy to seafood
CPT/HCPCS: 36415; 76830; 76856; 80053; 81001; 81025; 85025; 87086; 93005; 93976; 96374; 96375; 99284; J2405

== ENCOUNTER → 2016-09-08 | Day surgery (SDC) | payer MEDICARE, MEDICAID ==
[~2016-09-08] VITALS: Ht 172.7 cm; Wt 104.8 kg
[~2016-09-08] MED LIST changes: +BACL10TA PO; +IBUP800T23 PO; +IRON65TA PO; +KETOROLAC 30 MG/ML VIAL (J1885) IV SCH; +KETOROLAC 60 MG/2 ML VIAL (J1885) As Ordered ONE; +LIDOCAINE 1% SDV INJ 30 ML VIAL As Ordered ONE; +LIDOCAINE 1% SDV INJ 30 ML VIAL XX ONE; +LIDOCAINE 2% INJ 100 MG/5 ML SDV (FOR ANES.) As Ordered ONE; +LR 1,000 ML IV SCH; +MEPERIDINE INJ 25 MG/ML VIAL (J2175) IV PRN; +METOCLOPRAMIDE INJ 10MG/2ML VIAL (J2765) IV PRN; +MIDAZOLAM INJ 2 MG/2 ML VIAL (J2250) As Ordered ONE; +MORPHINE 2 MG/ML 1ML SYRINGE As Ordered ONE; +MORPHINE 2 MG/ML 1ML SYRINGE IV PRN; +MYRB25TA PO; +ONDANSETRON 4MG/2ML VIAL (J2405) IV PRN; +PERC5TAB6 PO; +PERCOCET 5MG/325MG TAB PO PRN; +PROPOFOL 200 MG/20 ML VIAL As Ordered ONE; +VICO5TAB16 PO; +fentaNYL 100 MCG/2 ML INJECTION (J3010) As Ordered ONE; +fentaNYL 100 MCG/2 ML INJECTION (J3010) IV PRN
[2016-09-08 13:46] LABS: MEAN CORPUSCULAR HGB CONC 32.2 g/dl (32.0-36.5); MEAN CORPUSCULAR VOLUME 80.9 fl (80.0-96.0); RED CELL DISTRIBUTION WIDTH 13.9 % (11.5-14.5); WHITE BLOOD COUNT 7.1 K/mm3 (4.0-10.0)
[2016-09-08 14:10] LABS: CONTROL LINE HCG INT CTR LINE PRESENT
[2016-09-08] MEDS: PERCOCET 5MG/325MG TAB PO PRN ×2 (17:40→18:10)
[2016-09-08 18:20] VITALS: BP 132/80
--- NOTE | 2016-09-08 21:00 | RO ---
DATE OF PROCEDURE: 09/08/2016 PREPROCEDURE DIAGNOSIS: Endometrial polyps. POSTPROCEDURE DIAGNOSIS: Endometrial polyps. PROCEDURE: Hysteroscopy, dilation and curettage with MyoSure. SURGEON: Hetal Crowe MD STAMP MACHINE SERVICER: None. ANESTHESIA: IV sedation with paracervical block. SPECIMENS: 1. Endometrial curetting. 2. Endometrial polyp. PREOPERATIVE ANTIBIOTICS: None. INTRAVENOUS FLUIDS: 800 mL of lactated Ringer's solution. ESTIMATED BLOOD LOSS: 5 mL. URINE OUTPUT: 300 mL. OPERATIVE FINDINGS: 3 cm endometrial polyp as well as 1-1/2 cm endometrial polyp. Bilateral ostia were visualized. DESCRIPTION OF PROCEDURE: After informed consent was obtained and written consent was reviewed, the patient was brought to the operating room where IV sedation was then obtained. She was then placed in the lithotomy position and was prepped and draped in a normal sterile fashion. A time-out in the operating room was then performed, identifying the patient, procedure to be performed as well as drug allergies. A bivalve speculum was then placed in the vagina, revealing the cervix. The anterior lip of the cervix was grasped with a single-tooth tenaculum. A paracervical block was then performed with 1% lidocaine, total 12mL. The cervix was then sequentially dilated using Hanks dilators. The hysteroscope was then advanced in the cervical os and the endometrial cavity was surveyed with the above noted findings. The MyoSure was then inserted through the hysteroscope and two endometrial polyps were morcellated with good hemostasis noted. The hysteroscope was then removed. A sharp curette was then advanced through the cervical os to the level of the fundus and the uterus was curetted in a 360-degree fashion with moderate amounts of tissue obtained. Tenaculum was then removed from the cervix. Tenaculum sites were noted to be hemostatic. Speculum was then removed. In-and-out catheter was then performed productive of 300 mL of clear urine. The patient was then taken out of the lithotomy position and was taken to recovery in stable condition. Counts were correct. MTDD
== END | disposition home or self-care (01) ==
LOC: M SDC 12:43
PROVIDERS: ATTEND Obstetrics & Gynecology
DX: N84.0 Polyp of corpus uteri (principal); G80.9 Cerebral palsy, unspecified; Z95.0 Presence of cardiac pacemaker; I44.2 Atrioventricular block, complete; K21.9 Gastro-esophageal reflux disease without esophagitis; N32.89 Other specified disorders of bladder; R06.83 Snoring; Z88.7 Allergy status to serum and vaccine; Z79.899 Other long term (current) drug therapy
CPT/HCPCS: 36415; 58558; 84703; 85027; 86850; 86900; 86901; 88305; J1885; J2250; J3010

== ENCOUNTER → 2016-12-18 | Outpatient (REF) | payer MEDICARE, MEDICAID ==
[~2016-12-18] MED LIST changes: -KETOROLAC 30 MG/ML VIAL (J1885) IV SCH; -KETOROLAC 60 MG/2 ML VIAL (J1885) As Ordered ONE; -LIDOCAINE 1% SDV INJ 30 ML VIAL As Ordered ONE; -LIDOCAINE 1% SDV INJ 30 ML VIAL XX ONE; -LIDOCAINE 2% INJ 100 MG/5 ML SDV (FOR ANES.) As Ordered ONE; -LR 1,000 ML IV SCH; +MACR100C3 PO; -MEPERIDINE INJ 25 MG/ML VIAL (J2175) IV PRN; -METOCLOPRAMIDE INJ 10MG/2ML VIAL (J2765) IV PRN; -MIDAZOLAM INJ 2 MG/2 ML VIAL (J2250) As Ordered ONE; -MORPHINE 2 MG/ML 1ML SYRINGE As Ordered ONE; -MORPHINE 2 MG/ML 1ML SYRINGE IV PRN; -ONDANSETRON 4MG/2ML VIAL (J2405) IV PRN; -PERCOCET 5MG/325MG TAB PO PRN; -PROPOFOL 200 MG/20 ML VIAL As Ordered ONE; -fentaNYL 100 MCG/2 ML INJECTION (J3010) As Ordered ONE; -fentaNYL 100 MCG/2 ML INJECTION (J3010) IV PRN
== END ==
LOC: M LAB REF 19:46
PROVIDERS: ATTEND Physician Assistant
DX: R30.0 Dysuria (principal)

== ENCOUNTER 2016-12-22 08:01 | Emergency (ER) | payer MEDICAID, MEDICARE ==
[~2016-12-22] VITALS: Ht 172.7 cm; Wt 97.5 kg
[~2016-12-22 08:01] MED LIST changes: -MACR100C3 PO
[2016-12-22] MEDS ORDERED: KETOROLAC 60 MG/2 ML VIAL (J1885) IM ONE (08:30)
[2016-12-22] MEDS ORDERED: MACR100C3 PO (09:24)
[2016-12-22 09:31] VITALS: BP 131/99
[2016-12-22 09:37] LABS: MICROSCOPIC INDICATED? MAN YES (NO)
[2016-12-22 09:43] LABS: SQUAMOUS EPITHELIAL CELL URINE MOD AMOUNT /hpf (SMALL AMT); WBC, URINE 0-1 /hpf (0-3)
[2016-12-22 09:44] LABS: BACTERIA, URINE NONE SEEN; HYALINE CAST, URINE NONE SEEN /lpf (0-1); MICROSCOPIC EXAM PERFORMED
== END 2016-12-22 09:32 | disposition home or self-care (01) ==
LOC: M ED 08:32
DX: N30.00 Acute cystitis without hematuria (principal); G89.29 Other chronic pain; Z79.899 Other long term (current) drug therapy; Z91.013 Allergy to seafood; Z88.7 Allergy status to serum and vaccine
CPT/HCPCS: 51701; 81000; 87086; 96372; 99283; J1885

== ENCOUNTER 2017-01-24 22:09 | Emergency (ER) | payer MEDICAID, MEDICARE ==
[~2017-01-24] VITALS: Ht 172.7 cm; Wt 106.4 kg
[~2017-01-24 22:09] MED LIST changes: -BACL-67 PO; -BACL10TA PO; +BACL1TAB8 PO; +BACL1TAB9 PO; +IBUP1TAB7 PO; -IBUP800T23 PO; +MACR100C43 PO; +PERC5TAB12 PO; -PERC5TAB6 PO
[2017-01-24] MEDS ORDERED: KETOROLAC 30 MG/ML VIAL (J1885) IV ONE (22:45)
[2017-01-24 22:47] LABS: INR 0.96
[2017-01-24 22:50] LABS: BASO # 0.1 K/mm3 (0.0-0.2); BASO % 0.7 % (0.0-1.0); EOS # 0.1 K/mm3 (0.0-0.50); EOS % 1.3 % (0.0-3.0); LARGE UNSTAINED CELL # 0.2 K/mm3 (0.0-0.4); LARGE UNSTAINED CELL % 1.6 % (0.0-4.0); LYMPH # 3.5 K/mm3 (1.5-6.5); LYMPH % 30.5 % (24.0-44.0); MEAN CORPUSCULAR HEMOGLOBIN 28.2 pg (27.0-33.0); MEAN CORPUSCULAR HGB CONC 34.3 g/dl (32.0-36.5); MEAN CORPUSCULAR VOLUME 82.2 fl (80.0-96.0); MONO # 0.5 K/mm3 (0.0-0.8); MONO % 4.2 % (0.0-5.0); NEUTROPHILS # 6.7 K/mm3 (1.8-7.7); NEUTROPHILS % 61.7 % (36.0-66.0); PLATELET COUNT, AUTOMATED 380 k/mm3 (150-450); RED CELL DISTRIBUTION WIDTH 13.4 % (11.5-14.5); WHITE BLOOD COUNT 10.8 K/mm3 (4.0-10.0)
[2017-01-24 22:53] LABS: CONTROL LINE HCG INT CTR LINE PRESENT
[2017-01-24 23:03] LABS: ANION GAP 10 MEQ/L (8-16); BLOOD UREA NITROGEN 12 MG/DL (7-18); CALCIUM LEVEL 8.5 MG/DL (8.5-10.1); CARBON DIOXIDE LEVEL 25 MEQ/L (21-32); CHLORIDE LEVEL 103 MEQ/L (98-107); CREATININE FOR GFR 0.66 MG/DL (0.55-1.02); GLOMERULAR FILTRATION RATE > 60.0 (>60); GLUCOSE, FASTING 109 MG/DL (70-105); POTASSIUM SERUM 3.9 MEQ/L (3.5-5.1); SODIUM LEVEL 138 MEQ/L (136-145)
[2017-01-25] MEDS ORDERED: diphenhydrAMINE INJ 50MG/ML VIAL (J1200) IV STA (00:11)
[2017-01-25] MEDS ORDERED: dexameTHASONE 20 MG/5 ML VIAL (J1100) IV ONE (00:15)
[2017-01-25] MEDS ORDERED: ISOVUE-370 76% 100ML VIAL (Q9967) As Ordered ONE (00:27)
--- NOTE | 2017-01-25 01:30 | REPUSA ---
CLINICAL HISTORY: Chest pain, exclude PE. TECHNIQUE: Multiple incremental axial, coronal and oblique images are obtained from the thoracic inle t to the upper abdomen. Intravenous contrast material was administered as per pulmonary embolism prot ocol. COMMENTS: 3.5 cm hypodense lesion of the right thyroid lobe. Pacemaker wires are in good position. Bilateral basilar dependent atelectatic pulmonary changes. Mild cardiomegaly. There is excellent opacification of pulmonary arterial system without evidence for pulmonary embolism . Aorta is of normal caliber without evidence for dissection or aneurysm. There is no evidence of pleural or parenchymal mass. There are no pleural effusions. There is no evid ence of hilar or mediastinal lymphadenopathy. Images of the upper abdomen demonstrate no evidence of adrenal mass. The bony structures are free of lytic or blastic lesions. IMPRESSION: No evidence for pulmonary embolism. Cardiomegaly. Pacemaker wires are in good position. Minimal basilar dependent atelectatic pulmonary changes. Thank you for your kind referral of this patient.
[2017-01-25 02:41] VITALS: BP 119/76
--- NOTE | 2017-01-25 05:42 | ECGEPIP ---
Stationary ECG Study [facility] - ED Test Date: 2017-01-24 Pat Name: TAYLOR ALCANTARA Department: Room: - Gender: F Surgical Specialist: lucila : 1990 Requested By: KENNY DUBOIS Order Number: [id number] Reading MD: Jose A Vieyra Measurements Intervals Forest Rate: 79 P: 36 AK: 147 QRS: 56 QRSD: 89 T: 44 QT: 386 QTc: 444 Interpretive Statements SINUS RHYTHM Electronically Signed On 01-25-2017 5:42:08 EDT by Jose A Vieyra
== END 2017-01-25 03:28 | disposition home or self-care (01) ==
LOC: EDBD 22:09 → M ED 22:09
DX: R07.1 Chest pain on breathing (principal); I48.91 Unspecified atrial fibrillation; Z95.0 Presence of cardiac pacemaker; K21.9 Gastro-esophageal reflux disease without esophagitis; F32.9 Major depressive disorder, single episode, unspecified; Z79.899 Other long term (current) drug therapy; Z88.1 Allergy status to other antibiotic agents; Z91.013 Allergy to seafood; Z88.7 Allergy status to serum and vaccine
CPT/HCPCS: 36600; 71275; 80048; 82550; 82553; 84703; 85025; 85610; 85730; 93005; 96374; 96375; 99284; J1100; J1200; J1885; Q9967

== ENCOUNTER 2017-03-02 02:54 | Emergency (ER) | payer MEDICAID ==
[~2017-03-02] VITALS: Ht 172.7 cm; Wt 104.1 kg
[2017-03-02] MEDS ORDERED: NS 1,000 ML IV ONE (04:00)
[2017-03-02] MEDS ORDERED: KETOROLAC 30 MG/ML VIAL (J1885) IV ONE (04:00)
[2017-03-02] MEDS ORDERED: GASTROGRAFIN SOLUTION 30ML PO ONE (04:10)
[2017-03-02 04:27] LABS: BASO # 0.1 K/mm3 (0.0-0.2); BASO % 0.5 % (0.0-1.0); EOS # 0.3 K/mm3 (0.0-0.50); EOS % 1.9 % (0.0-3.0); LARGE UNSTAINED CELL # 0.2 K/mm3 (0.0-0.4); LARGE UNSTAINED CELL % 1.3 % (0.0-4.0); LYMPH # 3.4 K/mm3 (1.5-6.5); LYMPH % 21.2 % (24.0-44.0); MEAN CORPUSCULAR HEMOGLOBIN 28.1 pg (27.0-33.0); MEAN CORPUSCULAR HGB CONC 33.4 g/dl (32.0-36.5); MEAN CORPUSCULAR VOLUME 84.1 fl (80.0-96.0); MONO # 0.7 K/mm3 (0.0-0.8); MONO % 4.4 % (0.0-5.0); NEUTROPHILS # 10.8 K/mm3 (1.8-7.7); NEUTROPHILS % 70.7 % (36.0-66.0); PLATELET COUNT, AUTOMATED 308 k/mm3 (150-450); RED CELL DISTRIBUTION WIDTH 13.5 % (11.5-14.5); WHITE BLOOD COUNT 15.2 K/mm3 (4.0-10.0)
[2017-03-02] MEDS ORDERED: GASTROGRAFIN SOLUTION 30ML (Q9963) PO ONE (04:40)
[2017-03-02 04:42] LABS: CONTROL LINE HCG INT CTR LINE PRESENT
[2017-03-02] MEDS ORDERED: GASTROGRAFIN SOLUTION 30ML (Q9963) As Ordered ONE (04:48)
[2017-03-02 04:50] LABS: ALBUMIN/GLOBULIN RATIO 1.08 (1.00-1.93); ALKALINE PHOSPHATASE 102 U/L (45-117); ALT/SGPT 19 U/L (12-78); AMYLASE 26 U/L (25-115); ANION GAP 12 MEQ/L (8-16); AST/SGOT 22 U/L (15-37); BILIRUBIN,DIRECT < 0.1 MG/DL (0.0-0.2); BILIRUBIN,TOTAL 0.3 MG/DL (0.2-1.0); BLOOD UREA NITROGEN 13 MG/DL (7-18); CALCIUM LEVEL 8.7 MG/DL (8.5-10.1); CARBON DIOXIDE LEVEL 25 MEQ/L (21-32); CHLORIDE LEVEL 102 MEQ/L (98-107); CREATININE FOR GFR 0.62 MG/DL (0.55-1.02); GLOMERULAR FILTRATION RATE > 60.0 (>60); GLUCOSE, FASTING 101 MG/DL (70-105); SODIUM LEVEL 139 MEQ/L (136-145); TOTAL PROTEIN 7.7 GM/DL (6.4-8.2)
[2017-03-02] MEDS ORDERED: MORPHINE 4 MG/ML 1ML SYRINGE IV ONE ×2 (06:00→08:30)
[2017-03-02] MEDS ORDERED: METOCLOPRAMIDE INJ 10MG/2ML VIAL (J2765) IV ONE (06:00)
--- NOTE | 2017-03-02 08:00 | REPUSA ---
CLINICAL HISTORY: Abdominal pain. TECHNIQUE: Multiple axial, sagittal and coronal CT images were obtained through the abdomen and pelvi s without administration of IV contrast material. Patient ingested oral contrast. COMMENTS: Mild thickening of the terminal ileum. The liver is moderately enlarged with decreased attenuation without mass or defect. There is no intra or extrahepatic biliary ductal dilatation. The spleen is normal. The gallbladder is within normal li mits. The pancreas is of normal contour and attenuation characteristics. There is no evidence of adre nal mass. The kidneys are normal in size, shape and configuration. No renal or ureteral calculi are identified. There is no hydroureter or hydronephrosis. There is no evidence for appendicitis. No evidence for small or large bowel obstruction. There is no evidence of abdominal ascites or lymphadenopathy. There is no evidence of intrinsic or extrinsic bladder mass. There is no pelvic ascites or lymphadeno luis enrique. Images of the lung bases show no evidence of pleural or parenchymal mass. There are no pleural effusi ons. The bony structures are free of lytic or blastic lesions. IMPRESSION: Mild thickening of the terminal ileum. Underdistention, spasm versus mild enteritis. Hepatomegaly with fatty liver infiltration. Uncomplicated colonic diverticulosis. Mild thickening of the bladder. Thank you for your kind referral of this patient.
--- NOTE | 2017-03-02 09:04 | ED PDOC ---
Post-Departure Follow-Up radiology rpeort faxed to Gracy Broderick MD Mar 02, 2017 09:04
[2017-03-02] MEDS ORDERED: NORCOTAB PO (09:26)
[2017-03-02 09:34] VITALS: BP 132/63
--- NOTE | 2017-03-02 10:03 | REP ---
PELVIC ULTRASOUND: Real-time sonographic evaluation of the pelvis performed utilizing transabdominal and endovaginal technique. The bladder measures 5.1 x 4.6 x 8.9 cm. Uterus measures 10.7 x 3.8 x 3.7 cm. Endometrial thickness is 9 mm. Ovaries are normal in size and echotexture, right ovary measuring 3.4 x 2.3 x 3.1 cm and left ovary 2.2 x 2.2 x 1.9 cm. There is no adnexal mass. There is no free fluid. There is no evidence of ovarian torsion with blood flow seen in each ovary with duplex Doppler evaluation, resistive index right ovary 0.36 and left ovary 0.44. There is fluid in the cervical canal. IMPRESSION: Fluid noted in the cervical canal. No evidence of ovarian mass, torsion or free fluid. Signed by Lyndon Tony MD 03/02/2017 10:06 A
== END 2017-03-02 09:35 | disposition home or self-care (01) ==
LOC: M ED 02:54
DX: R10.11 Right upper quadrant pain (principal); R10.31 Right lower quadrant pain; D50.9 Iron deficiency anemia, unspecified; F32.9 Major depressive disorder, single episode, unspecified; K21.9 Gastro-esophageal reflux disease without esophagitis; I48.91 Unspecified atrial fibrillation; Z95.0 Presence of cardiac pacemaker; I44.0 Atrioventricular block, first degree; G80.9 Cerebral palsy, unspecified; Z79.899 Other long term (current) drug therapy; Z88.1 Allergy status to other antibiotic agents; Z91.013 Allergy to seafood; Z88.7 Allergy status to serum and vaccine
CPT/HCPCS: 74176; 76830; 76856; 80048; 80076; 81001; 82150; 83690; 84703; 85025; 87086; 93976; 96361; 96374; 96375; 96376; 99283; J1885; J2765; Q9963

== ENCOUNTER 2017-03-06 01:31 | Emergency (ER) | payer MEDICAID ==
[~2017-03-06 01:31] MED LIST changes: +NORCOTAB PO
== END 2017-03-06 02:35 | disposition left against medical advice (07) ==
LOC: M ED 01:31
DX: R10.9 Unspecified abdominal pain (principal); Z53.29 Procedure and treatment not carried out because of patient's decision for other reasons

== ENCOUNTER → 2017-03-07 | Outpatient (REF) | payer MEDICAID ==
[2017-03-07 12:55] LABS: MEAN CORPUSCULAR HEMOGLOBIN 28.7 pg (27.0-33.0); MEAN CORPUSCULAR VOLUME 84.3 fl (80.0-96.0); RED CELL DISTRIBUTION WIDTH 13.6 % (11.5-14.5); RETICULOCYTE % 3.1 % (0.5-1.5)
[2017-03-07 13:33] LABS: ALBUMIN 3.8 GM/DL (3.2-5.2); ALBUMIN/GLOBULIN RATIO 1.09 (1.00-1.93); ALKALINE PHOSPHATASE 92 U/L (45-117); ALT/SGPT 23 U/L (12-78); ANION GAP 12 MEQ/L (8-16); AST/SGOT 21 U/L (15-37); BILIRUBIN,TOTAL 0.5 MG/DL (0.2-1.0); BLOOD UREA NITROGEN 11 MG/DL (7-18); CALCIUM LEVEL 9.4 MG/DL (8.5-10.1); CARBON DIOXIDE LEVEL 23 MEQ/L (21-32); CHLORIDE LEVEL 103 MEQ/L (98-107); CHOLESTEROL LEVEL 201 MG/DL (<200); CREATININE FOR GFR 0.59 MG/DL (0.55-1.02); FERRITIN 28 NG/ML (8-252); FOLATE 17.9 NG/ML (>5.4); FREE T4 1.13 NG/DL (0.76-1.46); GLOMERULAR FILTRATION RATE > 60.0 (>60); GLUCOSE, FASTING 88 MG/DL (70-105); PERCENT SATURATION 13.4 % (13.2-45.0); POTASSIUM SERUM 3.9 MEQ/L (3.5-5.1); SODIUM LEVEL 138 MEQ/L (136-145); TOTAL IRON BINDING CAPACITY 389 UG/DL (250-450); TOTAL PROTEIN 7.3 GM/DL (6.4-8.2); TRIGLYCERIDES LEVEL 194 MG/DL (<150); VITAMIN B12 LEVEL 363 PG/ML (247-911)
== END ==
LOC: M SFHCADAM 09:06
PROVIDERS: ATTEND Family Medicine
DX: D50.0 Iron deficiency anemia secondary to blood loss (chronic) (principal); K76.0 Fatty (change of) liver, not elsewhere classified; J30.9 Allergic rhinitis, unspecified; E04.1 Nontoxic single thyroid nodule; E78.5 Hyperlipidemia, unspecified; F33.1 Major depressive disorder, recurrent, moderate

== ENCOUNTER → 2017-05-29 | Outpatient (REF) | payer MEDICARE, MEDICAID ==
[2017-05-29 20:48] LABS: MEAN CORPUSCULAR HEMOGLOBIN 27.9 pg (27.0-33.0); MEAN CORPUSCULAR HGB CONC 32.9 g/dl (32.0-36.5); MEAN CORPUSCULAR VOLUME 84.8 fl (80.0-96.0); PLATELET COUNT, AUTOMATED 375 10^3/uL (150-450); WHITE BLOOD COUNT 9.9 10^3/uL (4.0-10.0)
[2017-05-29 20:59] LABS: ALBUMIN 3.8 GM/DL (3.2-5.2); ALBUMIN/GLOBULIN RATIO 0.97 (1.00-1.93); ALKALINE PHOSPHATASE 103 U/L (45-117); ALT/SGPT 19 U/L (12-78); ANION GAP 8 MEQ/L (8-16); AST/SGOT 18 U/L (15-37); BILIRUBIN,TOTAL 0.4 MG/DL (0.2-1.0); BLOOD UREA NITROGEN 11 MG/DL (7-18); CARBON DIOXIDE LEVEL 24 MEQ/L (21-32); CHLORIDE LEVEL 105 MEQ/L (98-107); CREATININE FOR GFR 0.61 MG/DL (0.55-1.02); FREE T4 0.81 NG/DL (0.76-1.46); GLOMERULAR FILTRATION RATE > 60.0 (>60); GLUCOSE, FASTING 86 MG/DL (70-105); MAGNESIUM LEVEL 1.9 MG/DL (1.8-2.4); POTASSIUM SERUM 4.1 MEQ/L (3.5-5.1); SODIUM LEVEL 137 MEQ/L (136-145); TOTAL PROTEIN 7.7 GM/DL (6.4-8.2)
[2017-05-29 21:03] LABS: INR 0.99
== END ==
LOC: M SFHCADAM 15:24
PROVIDERS: ATTEND Family Medicine
DX: Z01.818 Encounter for other preprocedural examination (principal); C73 Malignant neoplasm of thyroid gland; F43.22 Adjustment disorder with anxiety; E55.9 Vitamin D deficiency, unspecified; I48.0 Paroxysmal atrial fibrillation; Z86.2 Personal history of diseases of the blood and blood-forming organs and certain disorders involving the immune mechanism
CPT/HCPCS: 80053; 82306; 83735; 84439; 84443; 85027; 85610; 85730; G0463

== ENCOUNTER → 2017-07-23 | Outpatient (CLI) | payer MEDICARE, MEDICAID | LOC: M ADAMS 10:55 | PROVIDERS: ATTEND Student in an Organized Health Care Education/Training Program | DX: E89.0 Postprocedural hypothyroidism (principal) ==

== ENCOUNTER 2017-08-17 23:03 | Emergency (ER) | payer MEDICARE, MEDICAID ==
[2017-08-17] MEDS: diphenhydrAMINE INJ 50MG/ML VIAL (J1200) IV (23:16)
[2017-08-17] MEDS: dexameTHASONE 20 MG/5 ML VIAL (J1100) IV (23:30)
== END 2017-08-17 23:56 | disposition home or self-care (01) ==
LOC: M ED 23:03
DX: R21 Rash and other nonspecific skin eruption (principal); T78.1XXA Other adverse food reactions, not elsewhere classified, initial encounter; F41.9 Anxiety disorder, unspecified; Z79.899 Other long term (current) drug therapy; Z88.8 Allergy status to other drugs, medicaments and biological substances; Z91.013 Allergy to seafood; Z88.7 Allergy status to serum and vaccine
CPT/HCPCS: J1200

== ENCOUNTER → 2017-08-22 | Outpatient (REF) | payer MEDICARE, MEDICAID ==
[2017-08-22 12:33] LABS: HEMATOCRIT 43.3 % (36.0-47.0); HEMOGLOBIN 14.4 g/dl (12.0-16.0); MEAN CORPUSCULAR HEMOGLOBIN 27.8 pg (27.0-33.0); MEAN CORPUSCULAR HGB CONC 33.3 g/dl (32.0-36.5); MEAN CORPUSCULAR VOLUME 83.6 fl (80.0-96.0); PLATELET COUNT, AUTOMATED 380 10^3/uL (150-450); RED BLOOD COUNT 5.18 10^6/uL (4.00-5.40); RED CELL DISTRIBUTION WIDTH 13.6 % (11.5-14.5); RETIC HEMOGLOBIN EQUIVALENT 32.7 pg (24-36); WHITE BLOOD COUNT 10.5 10^3/uL (4.0-10.0)
[2017-08-22 12:50] LABS: ALBUMIN 3.6 GM/DL (3.2-5.2); ALBUMIN/GLOBULIN RATIO 0.84 (1.00-1.93); ALKALINE PHOSPHATASE 106 U/L (45-117); ALT/SGPT 16 U/L (12-78); ANION GAP 7 MEQ/L (8-16); AST/SGOT 18 U/L (7-37); BILIRUBIN,TOTAL 0.3 MG/DL (0.2-1.0); BLOOD UREA NITROGEN 14 MG/DL (7-18); CALCIUM LEVEL 8.8 MG/DL (8.5-10.1); CARBON DIOXIDE LEVEL 28 MEQ/L (21-32); CHLORIDE LEVEL 103 MEQ/L (98-107); CREATININE FOR GFR 0.65 MG/DL (0.55-1.02); FERRITIN 38 NG/ML (8-252); FREE T4 0.97 NG/DL (0.76-1.46); GLOMERULAR FILTRATION RATE > 60.0 (>60); GLUCOSE, FASTING 87 MG/DL (70-105); IRON (FE) 43 UG/DL (50-170); POTASSIUM SERUM 4.1 MEQ/L (3.5-5.1); SODIUM LEVEL 138 MEQ/L (136-145); TOTAL IRON BINDING CAPACITY 390 UG/DL (250-450); TOTAL PROTEIN 7.9 GM/DL (6.4-8.2)
[2017-08-22 12:53] LABS: FOLATE 11.6 NG/ML (>5.4); TOTAL 25(OH) VITAMIN D 12.5 NG/ML (30.0-100.0); VITAMIN B12 LEVEL 414 PG/ML (247-911)
== END ==
LOC: M SFHCADAM 09:28
DX: R53.83 Other fatigue (principal); D50.0 Iron deficiency anemia secondary to blood loss (chronic); E55.9 Vitamin D deficiency, unspecified
CPT/HCPCS: 82746

== ENCOUNTER → 2017-10-03 | Outpatient (REF) | payer MEDICARE, MEDICAID | LOC: M LAB REF 12:22 | DX: N76.89 Other specified inflammation of vagina and vulva (principal) | CPT/HCPCS: 87086 ==

== ENCOUNTER → 2017-10-31 | Outpatient (CLI) | payer MEDICARE, MEDICAID | LOC: M SLEEP 19:06 | DX: R40.0 Somnolence (principal); G47.33 Obstructive sleep apnea (adult) (pediatric) | CPT/HCPCS: 95810 ==

== ENCOUNTER 2017-11-24 10:01 | Emergency (ER) | payer MEDICARE, MEDICAID ==
[2017-11-24] MEDS: CLINDAMYCIN 900 MG in APPROPRIATE DILUENT 1 EA IV (11:46)
[2017-11-24] MEDS: MORPHINE 4 MG/ML 1ML VIAL/SYRINGE (J2270) IV (11:46)
[2017-11-24] MEDS: NS 1,000 ML IV (11:47)
[2017-11-24 11:51] LABS: BASO % 0.4 % (0.0-1.0); EOS # 0.2 10^3/uL (0.0-0.50); EOS % 1.4 % (0.0-3.0); HEMATOCRIT 41.1 % (36.0-47.0); HEMOGLOBIN 13.5 g/dl (12.0-15.5); IMMATURE GRANULOCYTE % 0.5 % (0-3.0); LYMPH # 2.9 10^3/uL (1.5-6.5); LYMPH % 26.9 % (24.0-44.0); MEAN CORPUSCULAR HEMOGLOBIN 27.6 pg (27.0-33.0); MEAN CORPUSCULAR HGB CONC 32.8 g/dl (32.0-36.5); MEAN CORPUSCULAR VOLUME 83.9 fl (80.0-96.0); MONO # 0.7 10^3/uL (0.0-0.8); MONO % 6.8 % (0.0-5.0); NEUTROPHILS # 6.9 10^3/uL (1.8-7.7); PLATELET COUNT, AUTOMATED 329 10^3/uL (150-450); RED CELL DISTRIBUTION WIDTH 13.2 % (11.5-14.5); WHITE BLOOD COUNT 10.8 10^3/uL (4.0-10.0)
[2017-11-24 12:19] LABS: ANION GAP 9 MEQ/L (8-16); BLOOD UREA NITROGEN 11 MG/DL (7-18); CALCIUM LEVEL 8.7 MG/DL (8.5-10.1); CARBON DIOXIDE LEVEL 24 MEQ/L (21-32); CHLORIDE LEVEL 106 MEQ/L (98-107); CREATININE FOR GFR 0.64 MG/DL (0.55-1.30); GLOMERULAR FILTRATION RATE > 60.0 (>60); GLUCOSE, FASTING 87 MG/DL (70-100); HCG, SERUM QUANTITATIVE < 1.0 MIU/ML; SODIUM LEVEL 139 MEQ/L (136-145)
[2017-11-24 12:20] LABS: LACTIC ACID SEPSIS PROTOCOL 1.1 MMOL/L (0.4-2.0)
[2017-11-24] MEDS: KETOROLAC 30 MG/ML VIAL (J1885) IV (12:46)
== END 2017-11-24 13:47 | disposition home or self-care (01) ==
LOC: M ED 10:01
DX: L02.411 Cutaneous abscess of right axilla (principal); G80.9 Cerebral palsy, unspecified; E66.9 Obesity, unspecified; F33.9 Major depressive disorder, recurrent, unspecified; Z79.899 Other long term (current) drug therapy; Z95.0 Presence of cardiac pacemaker; Z91.013 Allergy to seafood; Z88.7 Allergy status to serum and vaccine; Z88.8 Allergy status to other drugs, medicaments and biological substances
CPT/HCPCS: J2270

== ENCOUNTER → 2017-11-28 | Outpatient (CLI) | payer MEDICARE, MEDICAID | LOC: M SLEEP 19:42 | DX: G47.33 Obstructive sleep apnea (adult) (pediatric) (principal) | CPT/HCPCS: 95811 ==

== ENCOUNTER 2018-01-28 18:11 | Emergency (ER) | payer MEDICARE, MEDICAID ==
[2018-01-28] MEDS: MORPHINE 4 MG/ML 1ML VIAL/SYRINGE (J2270) IV (20:40)
[2018-01-28] MEDS: ONDANSETRON 4MG/2ML VIAL (J2405) IV (20:40)
[2018-01-28] MEDS: NS 1,000 ML IV (20:40)
[2018-01-28 20:42] LABS: BASO # 0.1 10^3/uL (0.0-0.2); BASO % 0.5 % (0.0-1.0); EOS # 0.1 10^3/uL (0.0-0.50); EOS % 1.2 % (0.0-3.0); HEMATOCRIT 40.9 % (36.0-47.0); HEMOGLOBIN 13.8 g/dl (12.0-15.5); IMMATURE GRANULOCYTE % 0.6 % (0-3.0); LYMPH # 3.1 10^3/uL (1.5-6.5); LYMPH % 28.3 % (24.0-44.0); MEAN CORPUSCULAR HEMOGLOBIN 27.9 pg (27.0-33.0); MEAN CORPUSCULAR HGB CONC 33.7 g/dl (32.0-36.5); MEAN CORPUSCULAR VOLUME 82.6 fl (80.0-96.0); MONO # 0.7 10^3/uL (0.0-0.8); MONO % 6.5 % (0.0-5.0); NEUTROPHILS % 62.9 % (36.0-66.0); PLATELET COUNT, AUTOMATED 306 10^3/uL (150-450); RED BLOOD COUNT 4.95 10^6/uL (4.00-5.40); RED CELL DISTRIBUTION WIDTH 13.5 % (11.5-14.5); WHITE BLOOD COUNT 11.1 10^3/uL (4.0-10.0)
[2018-01-28 21:10] LABS: CONTROL LINE HCG INT CTR LINE PRESENT; HCG, SERUM QUALITATIVE NEGATIVE (NEGATIVE)
[2018-01-28 21:21] LABS: ALBUMIN 3.6 GM/DL (3.2-5.2); ALBUMIN/GLOBULIN RATIO 0.77 (1.00-1.93); ALKALINE PHOSPHATASE 93 U/L (45-117); ALT/SGPT 18 U/L (12-78); ANION GAP 10 MEQ/L (8-16); AST/SGOT 24 U/L (7-37); BILIRUBIN,DIRECT < 0.1 MG/DL (0.0-0.2); BILIRUBIN,TOTAL 0.2 MG/DL (0.2-1.0); BLOOD UREA NITROGEN 12 MG/DL (7-18); CALCIUM LEVEL 8.4 MG/DL (8.5-10.1); CARBON DIOXIDE LEVEL 22 MEQ/L (21-32); CHLORIDE LEVEL 109 MEQ/L (98-107); CK-MB VALUE MASS 1.2 NG/ML (<3.6); CPK CREATINE PHOSPHOKINASE 68 U/L (26-192); CREATININE FOR GFR 0.61 MG/DL (0.55-1.30); GLOMERULAR FILTRATION RATE > 60.0 (>60); GLUCOSE, FASTING 84 MG/DL (70-100); LIPASE 137 U/L (73-393); MB/CK RELATIVE INDEX 1.76 (< OR =4); POTASSIUM SERUM 4.1 MEQ/L (3.5-5.1); SODIUM LEVEL 141 MEQ/L (136-145); TOTAL PROTEIN 8.3 GM/DL (6.4-8.2); TROPONIN I < 0.02 NG/ML (< 0.10)
[2018-01-28] MEDS: MORPHINE 2 MG/ML 1ML SYRINGE (J2270) IV (23:08)
[2018-01-28] MEDS ORDERED: OXYCODONE/APAP 5MG/325MG(BULK FOR ED) 1 TABLET PO (23:15)
== END 2018-01-28 23:34 | disposition home or self-care (01) ==
LOC: M ED 18:11
DX: N83.02 Follicular cyst of left ovary (principal); I10 Essential (primary) hypertension; K21.9 Gastro-esophageal reflux disease without esophagitis; Z79.899 Other long term (current) drug therapy; Z87.42 Personal history of other diseases of the female genital tract; Z84.2 Family history of other diseases of the genitourinary system; Z88.8 Allergy status to other drugs, medicaments and biological substances; Z91.013 Allergy to seafood
CPT/HCPCS: J2270

== ENCOUNTER → 2018-02-12 | Outpatient (REF) | payer MEDICARE, MEDICAID | LOC: M LAB REF 19:24 | DX: R30.0 Dysuria (principal) | CPT/HCPCS: 87086 ==

== ENCOUNTER → 2018-03-25 | Outpatient (REF) | payer MEDICARE, MEDICAID ==
[2018-03-25 18:12] LABS: APPEARANCE, URINE HAZY (CLEAR); BACTERIA, URINE AUTO 1+ (NEGATIVE); BILIRUBIN, URINE AUTO NEGATIVE (NEGATIVE); BLOOD, URINE BLOOD NEGATIVE (NEGATIVE); CALCIUM OXALATE CRYSTALS LARGE; COLOR, URINE YELLOW (YELLOW); GLUCOSE, URINE (UA) AUTO NEGATIVE (NEGATIVE); KETONE, URINE AUTO NEGATIVE (NEGATIVE); LEUKOCYTE ESTERASE, URINE AUTO NEGATIVE (NEGATIVE); NITRITE, URINE AUTO NEGATIVE (NEGATIVE); PROTEIN, URINE AUTO NEGATIVE (NEGATIVE); RBC, URINE AUTO 2 /HPF (0-3); SPECIFIC GRAVITY URINE AUTO 1.023 (1.002-1.035); SQUAMOUS EPITHELIAL CELL UR AU 1 /HPF (0-6); UROBILINOGEN, URINE AUTO 0.2 mg/dL (0.0-2.0); WBC, URINE AUTO 2 /HPF (0-3)
== END ==
LOC: M LAB REF 16:31
DX: R10.2 Pelvic and perineal pain (principal)
CPT/HCPCS: 81001

== ENCOUNTER 2018-04-02 17:46 | Emergency (ER) | payer MEDICARE, MEDICAID ==
[2018-04-02] MEDS: FAMOTIDINE 20 MG TAB PO (18:30)
[2018-04-02] MEDS: predniSONE 20 MG TAB PO (18:31)
[2018-04-02] MEDS: diphenhydrAMINE 25 MG CAP PO (18:31)
== END 2018-04-02 19:27 | disposition home or self-care (01) ==
LOC: M ED 17:46
DX: R21 Rash and other nonspecific skin eruption (principal); T78.1XXA Other adverse food reactions, not elsewhere classified, initial encounter; G80.9 Cerebral palsy, unspecified; I48.91 Unspecified atrial fibrillation; F33.9 Major depressive disorder, recurrent, unspecified; Z88.8 Allergy status to other drugs, medicaments and biological substances; Z91.030 Bee allergy status; Z91.013 Allergy to seafood; Z88.7 Allergy status to serum and vaccine; Z95.0 Presence of cardiac pacemaker
CPT/HCPCS: 99283

== ENCOUNTER 2018-05-14 14:11 | Emergency (ER) | payer MEDICARE, MEDICAID ==
[2018-05-14 16:17] LABS: BASO # 0.1 10^3/uL (0.0-0.2); BASO % 0.6 % (0.0-1.0); EOS # 0.1 10^3/uL (0.0-0.50); EOS % 1.5 % (0.0-3.0); HEMATOCRIT 42.2 % (36.0-47.0); IMMATURE GRANULOCYTE % 0.8 % (0-3.0); LYMPH # 2.6 10^3/uL (1.5-6.5); LYMPH % 29.3 % (24.0-44.0); MEAN CORPUSCULAR HEMOGLOBIN 28.4 pg (27.0-33.0); MEAN CORPUSCULAR HGB CONC 33.2 g/dl (32.0-36.5); MEAN CORPUSCULAR VOLUME 85.6 fl (80.0-96.0); MONO # 0.5 10^3/uL (0.0-0.8); MONO % 5.3 % (0.0-5.0); NEUTROPHILS # 5.6 10^3/uL (1.8-7.7); NEUTROPHILS % 62.5 % (36.0-66.0); PLATELET COUNT, AUTOMATED 354 10^3/uL (150-450); RED BLOOD COUNT 4.93 10^6/uL (4.00-5.40); RED CELL DISTRIBUTION WIDTH 12.9 % (11.5-14.5); WHITE BLOOD COUNT 8.9 10^3/uL (4.0-10.0)
[2018-05-14] MEDS: NORCO, ANEXSIA 5/325MG TABLET (HYDROcodone/ACETAMINOPHEN) PO (16:29)
[2018-05-14] MEDS: ONDANSETRON 4 MG ORAL DISINTEGRATING TAB (Q0162 PER 1MG) PO (16:29)
[2018-05-14 16:43] LABS: CONTROL LINE HCG INT CTR LINE PRESENT; HCG, SERUM QUALITATIVE NEGATIVE (NEGATIVE)
== END 2018-05-14 17:41 | disposition home or self-care (01) ==
LOC: M ED 14:11
DX: N84.0 Polyp of corpus uteri (principal); Z87.59 Personal history of other complications of pregnancy, childbirth and the puerperium; G80.9 Cerebral palsy, unspecified; K58.9 Irritable bowel syndrome, unspecified; Z95.0 Presence of cardiac pacemaker; Z79.899 Other long term (current) drug therapy; Z91.030 Bee allergy status; Z88.8 Allergy status to other drugs, medicaments and biological substances; Z91.013 Allergy to seafood; Z88.1 Allergy status to other antibiotic agents
CPT/HCPCS: Q0162

== ENCOUNTER → 2018-07-05 | Outpatient (REF) | payer MEDICARE, MEDICAID ==
[2018-07-05 16:07] LABS: CONTROL LINE UCG INT CTR LINE PRESENT; URINE PREG TEST NEGATIVE (NEGATIVE)
[2018-07-05 17:54] LABS: CHLAMYDIA DNA AMPLIFICATION NEGATIVE (NEGATIVE); GC DNA AMPLIFICATION NEGATIVE (NEGATIVE)
== END ==
LOC: M SFHCADAM 15:03
DX: N76.0 Acute vaginitis (principal); N84.0 Polyp of corpus uteri; B37.3 Candidiasis of vulva and vagina; B96.89 Other specified bacterial agents as the cause of diseases classified elsewhere
CPT/HCPCS: 84703

== ENCOUNTER 2019-01-01 13:25 | Emergency (ER) | payer MEDICARE, MEDICAID ==
[~2019-01-01] VITALS: Ht 175.3 cm; Wt 99.1 kg
[~2019-01-01 13:25] MED LIST changes: +CLEO300C2 PO; +CYMB1CAP4; +DICL500C PO; -DILT180C74 PO; +DILT1CAP4 PO; -DULO20CA; +FLON1SPR NARES; +HYDR-3715 PO; -NORCOTAB PO; +PEPC1TAB5 PO; +PRED20TA PO; -VICO5TAB16 PO; +VICO5TAB17 PO
[2019-01-01] MEDS ORDERED: methylPREDNISolone SUSP 40 MG/ML (DEPO-medrol) VIAL (J1030) IM ONE (14:45)
[2019-01-01] MEDS ORDERED: MEDR4PAK PO (14:54)
[2019-01-01] MEDS ORDERED: PEPC1TAB5 PO (14:54)
[2019-01-01 15:10] VITALS: BP 129/76
== END 2019-01-01 15:32 | disposition home or self-care (01) ==
LOC: M ED 13:25 → EDBD 13:25 → M ED 15:32
DX: T78.40XA Allergy, unspecified, initial encounter (principal); G80.9 Cerebral palsy, unspecified; I10 Essential (primary) hypertension; K21.9 Gastro-esophageal reflux disease without esophagitis; M54.2 Cervicalgia; M54.5 Low back pain; G89.29 Other chronic pain; Z95.0 Presence of cardiac pacemaker; Z88.1 Allergy status to other antibiotic agents; Z88.7 Allergy status to serum and vaccine; Z91.030 Bee allergy status; Z91.013 Allergy to seafood; Z79.899 Other long term (current) drug therapy
CPT/HCPCS: 93041; 94760; 96372; 99285; J1030

== ENCOUNTER → 2019-03-07 | Outpatient (REF) | payer MEDICARE, MEDICAID ==
[~2019-03-07] MED LIST changes: +MEDR4PAK PO
[2019-03-07 13:22] LABS: ALBUMIN 3.5 GM/DL (3.2-5.2); ALT/SGPT 21 U/L (12-78); BILIRUBIN,TOTAL 0.2 MG/DL (0.2-1.0); BLOOD UREA NITROGEN 11 MG/DL (7-18); CALCIUM LEVEL 8.9 MG/DL (8.5-10.1); CARBON DIOXIDE LEVEL 25 MEQ/L (21-32); CHLORIDE LEVEL 106 MEQ/L (98-107); CREATININE FOR GFR 0.71 MG/DL (0.55-1.30); GLOMERULAR FILTRATION RATE > 60.0 (>60); GLUCOSE, FASTING 90 MG/DL (70-100); SODIUM LEVEL 139 MEQ/L (136-145); TOTAL PROTEIN 7.3 GM/DL (6.4-8.2)
== END ==
LOC: M LABDRWAD 12:25
PROVIDERS: ATTEND Physical Medicine & Rehabilitation
DX: G80.8 Other cerebral palsy (principal)

== ENCOUNTER → 2019-03-07 | Outpatient (CLI) | payer MEDICARE, MEDICAID ==
--- NOTE | 2019-03-07 19:31 | REP ---
Clinical: Pain. Technique: AP, lateral, bilateral oblique views of the right knee. Findings: Lateral view best demonstrates the patella loni. No acute fracture. Visualized femur, tibia and fibula are normal. No effusion. Impression: Evidence for patella loni. Electronically Signed by Jim Agustin MD 03/07/2019 07:22 P
== END ==
LOC: M ADAMS 08:59
PROVIDERS: ATTEND Physical Medicine & Rehabilitation
DX: G80.8 Other cerebral palsy (principal)

== ENCOUNTER → 2019-03-24 | Outpatient (REF) | payer MEDICARE, MEDICAID | LOC: M LAB REF 13:30 | PROVIDERS: ATTEND Physician Assistant | DX: N30.11 Interstitial cystitis (chronic) with hematuria (principal) ==

== ENCOUNTER → 2019-04-18 | Outpatient (REF) | payer MEDICARE, MEDICAID | LOC: M LAB REF 19:19 | PROVIDERS: ATTEND Physician Assistant Medical | DX: R30.0 Dysuria (principal) ==

== ENCOUNTER → 2019-05-07 | Outpatient (REF) | payer MEDICARE, MEDICAID ==
[2019-05-07 19:02] LABS: APPEARANCE, URINE TURBID (CLEAR); BACTERIA, URINE AUTO NEGATIVE (NEGATIVE); BILIRUBIN, URINE AUTO NEGATIVE (NEGATIVE); BLOOD, URINE BLOOD 1+ (NEGATIVE); COLOR, URINE YELLOW (YELLOW); GLUCOSE, URINE (UA) AUTO NEGATIVE (NEGATIVE); KETONE, URINE AUTO NEGATIVE (NEGATIVE); LEUKOCYTE ESTERASE, URINE AUTO NEGATIVE (NEGATIVE); NITRITE, URINE AUTO NEGATIVE (NEGATIVE); PROTEIN, URINE AUTO NEGATIVE (NEGATIVE); RBC, URINE AUTO 0 /HPF (0-3); SPECIFIC GRAVITY URINE AUTO 1.027 (1.002-1.035); SQUAMOUS EPITHELIAL CELL UR AU 0 /HPF (0-6); UROBILINOGEN, URINE AUTO 0.2 mg/dL (0.0-2.0); WBC, URINE AUTO 0 /HPF (0-3)
== END ==
LOC: M LAB REF 16:38
PROVIDERS: ATTEND Obstetrics & Gynecology
DX: R10.2 Pelvic and perineal pain (principal); Z85.850 Personal history of malignant neoplasm of thyroid

== ENCOUNTER → 2019-05-21 | Outpatient (REF) | payer MEDICARE, MEDICAID ==
[~2019-05-21] MED LIST changes: +OMEP-358 PO; -OMEP20TA PO
[2019-05-21 20:02] LABS: FREE T4 1.15 NG/DL (0.76-1.46); THYROID STIMULATING HORMONE 5.94 uIU/ML (0.358-3.740)
== END ==
LOC: M LABDRWAD 19:15
PROVIDERS: ATTEND Obstetrics & Gynecology
DX: Z85.850 Personal history of malignant neoplasm of thyroid (principal)

== ENCOUNTER → 2019-05-29 | Outpatient (REF) | payer MEDICARE, MEDICAID ==
[2019-05-29 19:28] LABS: FREE T4 0.91 NG/DL (0.76-1.46); THYROID STIMULATING HORMONE 2.74 uIU/ML (0.358-3.740)
== END ==
LOC: M LABDRWAD 18:53
PROVIDERS: ATTEND Obstetrics & Gynecology
DX: Z85.850 Personal history of malignant neoplasm of thyroid (principal)

== ENCOUNTER → 2019-10-08 | Outpatient (REF) | payer MEDICARE, MEDICAID ==
[~2019-10-08] MED LIST changes: +FLUO20CA20 PO; -FLUO20CA8 PO
== END ==
LOC: M LAB REF 15:29
PROVIDERS: ATTEND Physician Assistant
DX: R31.9 Hematuria, unspecified (principal)
CPT/HCPCS: 81002; 87086; G0463

== ENCOUNTER → 2020-04-18 | Outpatient (REF) | payer MEDICARE, MEDICAID | LOC: M LAB REF 13:00 | PROVIDERS: ATTEND Physician Assistant | DX: R30.0 Dysuria (principal) ==

== ENCOUNTER → 2020-05-25 | Outpatient (REF) | payer MEDICARE, MEDICAID | LOC: M WUC 20:01 | PROVIDERS: ATTEND Physician Assistant | DX: N30.11 Interstitial cystitis (chronic) with hematuria (principal); N76.1 Subacute and chronic vaginitis ==

== ENCOUNTER → 2020-07-14 | Outpatient (REF) | payer MEDICARE, MEDICAID | LOC: M LAB REF 12:54 | PROVIDERS: ATTEND Physician Assistant | DX: N39.0 Urinary tract infection, site not specified (principal) ==

== ENCOUNTER → 2020-08-24 | Outpatient (REF) | payer MEDICARE, MEDICAID ==
[~2020-08-24] MED LIST changes: +FERR325T18; +MYRB25TA
[2020-08-24 18:12] LABS: HEMATOCRIT 33.9 % (36.0-47.0); MEAN CORPUSCULAR HEMOGLOBIN 21.9 pg (27.0-33.0); MEAN CORPUSCULAR HGB CONC 29.5 g/dl (32.0-36.5); MEAN CORPUSCULAR VOLUME 74.3 fl (80.0-96.0); PLATELET COUNT, AUTOMATED 432 10^3/uL (150-450); RED BLOOD COUNT 4.56 10^6/uL (4.00-5.40); WHITE BLOOD COUNT 9.9 10^3/uL (4.0-10.0)
[2020-08-24 18:19] LABS: ALBUMIN 3.6 GM/DL (3.2-5.2); ALT/SGPT 18 U/L (12-78); BILIRUBIN,TOTAL 0.2 MG/DL (0.2-1.0); BLOOD UREA NITROGEN 13 MG/DL (7-18); CALCIUM LEVEL 8.8 MG/DL (8.5-10.1); CARBON DIOXIDE LEVEL 28 MEQ/L (21-32); CHLORIDE LEVEL 107 MEQ/L (98-107); CHOLESTEROL LEVEL 213 MG/DL (<200); CHOLESTEROL RISK RATIO 4.346 (<5); FERRITIN < 3 NG/ML (8-252); GLOMERULAR FILTRATION RATE > 60.0 (>60); GLUCOSE, FASTING 84 MG/DL (70-100); HDL CHOLESTEROL 49 MG/DL (>40); IRON (FE) 12 UG/DL (50-170); LDL CHOLESTEROL 135 MG/DL (<100); NON-HDL-C 164 MG/DL; PERCENT SATURATION 2.6 % (13.2-45.0); POTASSIUM SERUM 3.9 MEQ/L (3.5-5.1); SODIUM LEVEL 139 MEQ/L (136-145); TOTAL IRON BINDING CAPACITY 461 UG/DL (250-450); TOTAL PROTEIN 7.2 GM/DL (6.4-8.2); TRIGLYCERIDES LEVEL 147 MG/DL (<150)
[2020-08-24 18:22] LABS: TOTAL 25(OH) VITAMIN D 23.3 NG/ML (30.0-100.0)
== END ==
LOC: M SFHCADAM 12:13
PROVIDERS: ATTEND Family Medicine
DX: D50.0 Iron deficiency anemia secondary to blood loss (chronic) (principal); E55.9 Vitamin D deficiency, unspecified; C73 Malignant neoplasm of thyroid gland; I48.0 Paroxysmal atrial fibrillation; E78.5 Hyperlipidemia, unspecified
CPT/HCPCS: 80053; 80061; 82306; 82728; 83550; 84439; 84443; 85027; 85046; G0463

== ENCOUNTER 2020-09-03 11:58 | Emergency (ER) | payer MEDICARE, MEDICAID ==
[~2020-09-03] VITALS: Ht 172.7 cm; Wt 100.7 kg
[~2020-09-03 11:58] MED LIST changes: -FERR325T18; -MYRB25TA
[2020-09-03] MEDS ORDERED: MYRB25TA (12:12)
[2020-09-03] MEDS ORDERED: FERR325T18 (12:12)
--- OUTSIDE RECORDS SUMMARY | 2020-09-03 12:41 | CCD ---
Author Author [facility] Organization 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 695626661 Problem Excessive somnolence disorder G47.10 Active 19 8079033 Problem Iron deficiency anemia due to chronic blood loss D 50.0 Active 217352311 Problem Abnormal menses N92.6 Active 363165509 Problem Fatty liver disease, nonalcoholic K76.0 Active 401457780 Problem Adjustment disorder with anxious mood F43.22 Ac tive 63563053 Problem Paroxysmal atrial fibrillation I48.0 Active 2 22351300 Problem Other and unspecified hyperlipidemia E78.5 Act shireen 03223172 Problem Solitary nodule of right lobe of thyroid E04.1 Active 707551653 Problem 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 Active 569403 004 Problem Vitamin D deficiency E55.9 Active 17037341 Problem XANDER (obstructive sleep apnea) G47.33 Active 78 229516 Problem Obstructive sleep apnea (adult) (pediatric) G47.33 Active 02216320 Problem Medicare annual wellness visit, subsequent Z00.00 Active 152567648 Problem History of anemia Z86.2 Active 269131775 Problem Sacrococcygeal disorders, not elsewhere classified M53.3 Active 35199053 Problem Gastroesophageal reflux disease without esophagitis K21.9 Active 198649820 Problem Pacemaker Z95.0 Active 928755613 Problem Dependence on other enabling machines and devices Z99.89 Active 171179296 Problem 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 Active 331574741 Problem Other chronic pain G89.29 Active 19188607 Problem Bilateral sacroiliitis M46.1 Active 258563933 03593844 ALLERGIES Allergen (clinical drug ingredient) Drug/Non Drug Allergy do cumented on EMR Reaction Allergy Type Onset Date Status metronidazole Flagyl([facility] Code:[address]-13) Panic Attack Drug Allerg y 10/08/2019 Active metronidazole Metronidazole([facility] Code:[address]-15) Unknown Drug A llergy Active doxycycline Doxycycline([facility] Code:[address]-89) Hives Drug Aller gy Active cefdinir Cefdinir([facility] Code:[address]-34) Hives Drug Allergy Active clams Anaphylaxis Non Drug Allergy Active shrimp Unknown Non Drug Allergy Active Gardasil Anaphylaxis Drug Allergy Active Sulfa (for allergy use only) Unknown Drug Allergy Active clindamycin Clindamycin HCl([facility] Code:[address]-53) Itchy Drug A llergy Active gabapentin moodiness Non Drug Allergy Active ENCOUNTERS from 1990 to 2020-08-29 Encounter Location Date Provider Diagnosis [facility] [address] [place] [address] Aug, Rober Gomez IMMUNIZATIONS Vaccine Route Administration Date Status Gardasil IM Intramuscular February 13, 2013 Administered Gardasil IM Intramuscular Aug 16, 2012 Administered SOCIAL HISTORY Tobacco Use: Social History Observation Description Date Details (start date - stop date) Never Smoker Sex Assigned At : Social History Observation Description Sex Assigned At Unknown Alcohol Screening: Question Answer Notes Did you have a drink containing alcohol in the past year? Ye s Points 1 Interpretation Negative How often did you have six or more drinks on one occas ion in the past year? Never (0 points) How many drinks did you have on a typica l day when you were drinking in the past year? 1 or 2 (0 points) How often did you have a drink containing alcohol in t he past year? Monthly or less (1 point) BMI Care Goal Follow-Up Question Answer Notes Above Normal BMI Follow-Up Feeding regime, Weight monitoring Tobacco Use: Question Answer Notes Are you a: never smoker REASON FOR REFERRAL No Information VITAL SIGNS No information MEDICATIONS Medication SIG (Take, Route, Frequency, Duration) Notes Start Da te End Date Status EpiPen 2-Winston 0.3 MG/0.3ML as directed Injection as directed for 30 day(s) Jan, Active Drisdol 59816 UNIT 1 capsule Orally weekly for 90 day(s) 1 Aug, Not-Taking Omeprazole 40 MG 1 capsule Orally Once a day for 90 day(s) Active PROzac 10 MG 1 capsule in the morning Orally Once a d ay, with 20 mg cap for 30 Active Wheelchair - g80.8, z99.3 lightweight _ for 99 months 05 D 2017 Active Ibuprofen 800 MG 1 tablet Orally Three times a day as needed for 30 Active Diltiazem CD 180 MG 1 capsule Orally Once a day for 30 days Active HydrOXYzine HCl 25 MG 1 tablet as needed Orally fo ur times daily as needed for 30 day(s) Sep, Active Ferrous Sulfate 325 (65 Fe) MG 1 tablet Orally Daily for 90 days Jun, Not-Taking Lyrica 25 MG 1 capsule Orally bid for 30 Days Nov, Not-Taking Ciprodex 0.3-0.1 % 4 drops into affected ear Otic Twice a day fo r 7 day(s) Feb, Active Diflucan 150 MG 1 tablet Orally 1 for 1 days Jan, Active Azithromycin 250 MG 2 tablet on the first day, then 1 tablet daily for 4 days Orally Once a day for 5 day(s) Feb, N ot-Taking Tinidazole 500 MG 2 tablets with food Orally Once a day for 5 da y(s) Jun, Not-Taking Flonase Allergy Relief 50 MCG/ACT 1 spray in each nost ril Nasally Once a day for 90 day(s) Jan, Active Metronidazole 0.75 % _insert 1 APPLICATORFUL VAGI THONY TWO TIMES A DAY FOR 7 DAYS Vaginal Twice a day for 7 day(s) Active Fluconazole 150 MG 1 tab Orally Daily for 3 days Jan, 2 019 Active PROzac 20 MG 1 capsule in the morning Orally Once a d ay, with 10 mg cap for 30 Active Baclofen 20 MG 1 1/2 tablet with food or mi lk Orally Three times a day as needed for 90 Active Multivitamins - as directed Orally A ctive Myrbetriq 25 MG 1 tablet Orally Once a day for 30 Active Wheelchair Cushion - as directed DX:G80.8 as directed for 90 day (s) Nov, Active PROCEDURES No Information RESULTS No Results REASON FOR VISIT No Information MEDICAL (GENERAL) HISTORY Type Description Date Medical History depression--[facility] at 17 yo Medical History Atrial fibrillation, 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 - [employer] Medical History anemia, iron deficient Medical History cerebral palsy, BLE paraplegia Medical History hip dysplasia bilat Medical History fatty liver CT 02/19 Medical History rt thyroid mass, seen endo/F debo (FNA unsuccessful), now goes to [facility]--Hurthle cell ca on bx, 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 Shaq tineo - Urology Medical History Recurrent BV - Dr. Higgins Surgical History eugenio. ham string lengthening 2005 Surgical History pacemaker 10/12 Surgical History thyroid needle bx Hospitalization History B hamstring lengthening 2005 Hospitalization History pacer 10/12 Goals Section No Information Health Concerns No Information MEDICAL EQUIPMENT No Information MENTAL STATUS No Information FUNCTIONAL STATUS No Information ASSESSMENTS No Information PLAN OF TREATMENT Next Appt Details Provider Name:Jian Gomez, 2020-08 03:00:00 PM, [address], [place], [address], Insurance Providers Payer Name Payer Address Payer Phone Insured Name Patient Relati onship to Insured Coverage Start Date Coverage End Date MEDICARE Part A and B [address] [facility] [phone] TAYLOR ALCANTARA MEDICAID [id number] [address] [facility] [id number] TAYLOR ALCANTARA
--- OUTSIDE RECORDS SUMMARY | 2020-09-03 12:41 | CCD | Continuity of Care Document ---
Author Author Bisi CALERO Organization Unknown Address [address] [place] [address] [place] [address] Phone [phone] Care Team Providers Care Tool Lapper Hand Name Role Phone [facility] [phone] Problems Description No Information Available Social History Type Date Description Comments Sex Unknown Tobacco Use Start: Unknown Never Smoked Cigarettes ETOH Use Rarely consumes alcohol Tobacco Use Start: Unknown Patient has never smoked Smoking Status Reviewed: 01/26/20 Patient has never smoked Allergies, Adverse Reactions, Alerts Active Allergies Reaction Severity Comments Date Gardasil 04/19/2015 Shellfish-derived Products Anaphylaxis 0 08/21/2015 Cefdinir 01/02/2018 Clindamycin 01/02/2018 Bee Sting Hives 05/07/2018 Bactrim Hives, Itching itchy, hives 08/29/2018 Metronidazole Hives pt has used intravag withou t side effects 08/29/2018 Doxycycline 03/01/2019 Medications Active Medications SIG Qnty Indications Ordering Provide r Date Nitrofurantoin Monohyd Macro 100mg Capsules 1 cap by mouth twice a day for 5 days 10caps N39.0 Musa Archer JR., M.D. 07/14/2020 Diflucan 150mg Tablets 1 tab by mouth, may repeat in 3-5 days if needed 2tabs N39.0 Musa Archer JR., M.D. 07/14/2020 Lidocaine HCL Urethral/Mucosal 2% Gel apply small amount to affected area of vulva for pain reduction as needed 30ml N30.11 Musa Archer JR., M.D. 05/25/2020 Azelastine HCL (Nasal) 0.1% Soluti on 2 sprays in each nostril q12 hours 30ml J30.9 Musa ugarte JR., M.D. 03/24/2019 Proair HFA 108(90Base) mcg/Act Aer osol 2 puffs by mouth inhaled every 4-6 hours as needed 8.500gm R05 Musa Archer JR., M.D. 03/24/2019 Dantrium 25mg Capsules Unknown Fluticasone Propionate 50mcg/Act Suspension 2 sprays in each nostril once daily J30.9 Unkno wn CBD Unknown Epipen JR 2-Winston 0.15 mg/0.3ML Solution Auto-Inject Unknown Iron (Ferrous Gluconate) 325mg Tab lets 1 by mouth three times a day Unknown Ibuprofen 800mg Tablets 1 tab by mouth three times a day as needed pain Unknown Omeprazole Unknown Fluoxetine HCL Unknown Diltiazem HCL Unknown History Medications Pyridium 200mg Tablets 1 tab by mouth three times a day with food as needed for symptoms 9tabs R30.0 Musa Archer JR., M.D. 04/18/2020 - 04/21/2020 Macrobid 100mg Capsules 1 tab by mouth q12 hours for 5 days 10caps R30.0 Musa Archer JR., M.D. - 04/23/2020 Clotrimazole/Betamethasone Dipropionate 1-0.05% Cream apply to affected area every 12 hours until resolution 30gm B35.9 Musa Archer JR., M.D. 01/26/2020 - 02/02/2020 Medications Administered in Office Medication SIG Qnty Indications Ordering Provider Date Toradol Injection Per 15 MG(30 MG) Injection MAKENNA Mortensen 05/10/20 16 Immunizations Description No Information Available Vital Signs Date Vital Result Comment 07/14/2020 10:21am BP Systolic 126 mmHg BP Diastolic 82 mmHg Heart Rate 70 /min Respiratory Rate 16 /min O2 % BldC Oximetry 99 % Body Temperature 97.8 F Weight 220.00 lb Height 68 inches 5'8" BMI (Body Mass Index) 33.4 kg/m2 Pain Level 7 05/25/2020 2:58pm BP Systolic 122 mmHg BP Diastolic 70 mmHg Heart Rate 75 /min Respiratory Rate 20 /min O2 % BldC Oximetry 99 % Body Temperature 97.6 F Weight 220.00 lb Height 68 inches 5'8" BMI (Body Mass Index) 33.4 kg/m2 Pain Level 3 Results Test Acquired Date Facility Test Result H/L Range Note Laboratory test finding 07/14/[address] [id number] [phone] Urine Culture <pending> Laboratory test finding 05/25/[address] [id number] [phone] Urine Culture FULL REPORT IN L <SEE NOTE> Normal 1, 2 Genital Culture FULL REPORT IN L <SEE NOTE> Normal 3 Laboratory test finding 04/18/[address] [address] [phone] Urine Culture FULL REPORT IN L <SEE NOTE> Abnormal 4, 5 1 Rx Lidocaine topical 2 FULL REPORT IN LAB NOTES ([facility]). SPECIMEN APPEARS CONTAMINATED 3 FULL REPORT IN LAB NOTES ([facility]). NORMAL WISAM PRESENT 4 FULL REPORT IN LAB NOTES ([facility]). ORGANISM 1: KLEBSIELLA PNEUMONIAE COLONY COUNT >100,000 ORGANISM 1: KLEBSIELLA PNEUMONIAE KLEBSIELLA PNEUMONIAE: REACTION TRIMETHOPRIM/SULFAMETHOXAZOLE IV 160mg TMP & 800mg SMXq6h >=320 R TRIMETHOPRIM/SULFAMETHOXAZOLE PO Bactrim DS Bid >=320 R AMPICILLIN IV 500mg q6h >=32 R AMPICILLIN PO 500mg q6h fasting >=32 R GENTAMICIN IV 80mg q8h <=1 S NITROFURANTOIN PO 100mg BID 32 S CEFAZOLIN IV 1gm q8h <=4 S LEVOFLOXACIN IV 500mg qd <=0.12 S LEVOFLOXACIN PO 250mg qd <=0.12 S LEVOFLOXACIN PO 500mg qd <=0.12 S TOBRAMYCIN IV 80mg q8h <=1 S CEFTRIAXONE IV 1gm q24h <=1 S CEFTAZIDIME IV 1gm q8h <=1 S AMPICILLIN/SULBACTAM IV 1.5g q6h 8 S PIPERACILLIN/TAZOBACTAM IV 2.25 gm q6h <=4 S AZTREONAM IV 1gm q8h <=1 S ERTAPENEM IV 1gm qd <=0.5 S MEROPENEM IV 1 gm q8h <=0.25 S MEROPENEM IV 500 mg q8h <=0.25 S TIGECYCLINE IV 50mg q12h 1 S CEFEPIME IV 1 gm q12h <=1 S CEFEPIME IV 2 gm q12h <=1 S EXTD BRD SPCTRM BETA LACTAMASE IV NEGATIVE FOR ESBL 5 04/20/20 (SunApr 20) 08:48 AM CHRIS DEUTSCH macrobid = s Procedures Date Code Description Status 04/18/2020 53369 Therapeutic, Prophylactic Or Rosalee gnostic Injection Subq/Im Completed Medical Devices Description No Information Available Encounters Type Date Location Provider Dx Diagnosis Office Visit 07/14/2020 10:00a [facility] Dane Calero P TigreATigre N39.0 Urinary tract infection, site not specified Office Visit 05/25/2020 2:45p [facility] MAKENNA Portillo N30.11 Interstitial cystitis (chronic) with hematuria N76.1 Subacute and chronic vaginit is Office Visit 04/18/2020 12:00p [facility] MAKENNA Mortensen R30.0 Dysuria M54.5 Low back pain Office Visit 01/26/2020 2:00p [facility] MAKENNA Mortensen B35.9 Dermatophytosis, unspecified Assessments Date Code Description Provider 07/14/2020 N39.0 Urinary tract infection, site no t specified Hector Zarate 05/25/2020 N30.11 Interstitial cystitis (chronic) with hematuria MAKENNA Portillo 05/25/2020 N76.1 Subacute and chronic vaginitis MAKENNA Hassan 04/18/2020 R30.0 Dysuria MAKENNA Mortensen 04/18/2020 M54.5 Low back pain MAKENNA Mortensen 01/26/2020 B35.9 Dermatophytosis, unspecified MAKENNA Childers Plan of Treatment 07/14/2020 - Dane Calero, PTigreATigre* N39.0 Urinary tract infection, site not specified* New Medication:* Nitrofurantoin Monohyd Macro 100 mg - 1 cap by mouth twice a day for 5 days * Diflucan 150 mg - 1 tab by mouth, may repeat in 3-5 days if needed * Comments:* UA today has some blood only - relatively benign but will cover for infectious etiologies with MacobiToan send urine for C&S, multiple past cultures have been contaminatedShe should finish Macrobid unless otherwise notified and she needs to follow closely with PCP, urology and [employer]. Functional Status Description No Information Available Mental Status Description No Information Available Referrals Refer to Reason for Referral Status Appt Date [facility] urology Closed
--- OUTSIDE RECORDS SUMMARY | 2020-09-03 12:41 | CCD ---
Author Author [facility] Organization [facility] Address Unknown Phone Unavailable Care Team Providers Care Care Nurse Rn Name Role Phone Jian Gomez Unavailable PROBLEMS Type Condition ICD9-CM Code [id number] Code Onset Dates Condition S tatus SNOMED Code Notes Problem Recurrent UTI N39.0 Active 705465449 Problem Overactive bladder N32.81 Active 458184132 Problem Moderate episode of recurrent major depressive disorder F33.1 Active 972905560 Problem Hurthle cell carcinoma of thyroid C73 Active 572300310 Problem Excessive somnolence disorder G47.10 Active 19 6204224 Problem Iron deficiency anemia due to chronic blood loss D 50.0 Active 692488540 Problem Abnormal menses N92.6 Active 482823996 Problem Fatty liver disease, nonalcoholic K76.0 Active 678134293 Problem Adjustment disorder with anxious mood F43.22 Ac tive 43438208 Problem Paroxysmal atrial fibrillation I48.0 Active 2 34875919 Problem Other and unspecified hyperlipidemia E78.5 Act shireen 19699656 Problem Solitary nodule of right lobe of thyroid E04.1 Active 817837607 Problem 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 Active 706977 004 Problem Vitamin D deficiency E55.9 Active 99663178 Problem XANDER (obstructive sleep apnea) G47.33 Active 78 530022 Problem Obstructive sleep apnea (adult) (pediatric) G47.33 Active 23164753 Problem Medicare annual wellness visit, subsequent Z00.00 Active 801577616 Problem History of anemia Z86.2 Active 694246290 Problem Sacrococcygeal disorders, not elsewhere classified M53.3 Active 69915344 Problem Gastroesophageal reflux disease without esophagitis K21.9 Active 734807552 Problem Pacemaker Z95.0 Active 697034099 Problem Dependence on other enabling machines and devices Z99.89 Active 462724970 Problem 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 Active 758716826 Problem Other chronic pain G89.29 Active 34248693 Problem Bilateral sacroiliitis M46.1 Active 193242475 29646357 ALLERGIES Allergen (clinical drug ingredient) Drug/Non Drug Allergy do cumented on EMR Reaction Allergy Type Onset Date Status metronidazole Flagyl([facility] Code:[address]-43) Panic Attack Drug Allerg y 10/08/2019 Active metronidazole Metronidazole([facility] Code:[address]-22) Unknown Drug A llergy Active doxycycline Doxycycline([facility] Code:[address]-31) Hives Drug Aller gy Active cefdinir Cefdinir([facility] Code:[address]-72) Hives Drug Allergy Active clams Anaphylaxis Non Drug Allergy Active shrimp Unknown Non Drug Allergy Active Gardasil Anaphylaxis Drug Allergy Active Sulfa (for allergy use only) Unknown Drug Allergy Active clindamycin Clindamycin HCl([facility] Code:[address]-34) Itchy Drug A llergy Active gabapentin moodiness Non Drug Allergy Active ENCOUNTERS from 1990 to 2020 Encounter Location Date Provider Diagnosis [facility] [address] [place] [address] Aug, Rober Gomez IMMUNIZATIONS Vaccine Route Administration [...] directed for 30 day(s) Jan, Active Drisdol 35746 UNIT 1 capsule Orally weekly for 90 [...] Information RESULTS No Results REASON FOR VISIT lab results MEDICAL (GENERAL) HISTORY Type Description Date Medical History depression--[facility] at 17 yo Medical History Atrial fibrillation, 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 - [employer] Medical History anemia, iron deficient Medical History cerebral palsy, BLE paraplegia Medical History hip dysplasia bilat Medical History fatty liver CT 02/19 Medical History rt thyroid mass, seen endo/F debo (FNA unsuccessful), now goes to [facility]--Hurthle cell ca on bx, thyroidectomy 05/22--path showed [...] Details Provider Name:Jian Gomez, 2020-08 03:00:00 PM, [address], [place], [address], Insurance Providers Payer Name Payer Address Payer Phone Insured Name Patient Relati onship to Insured Coverage Start Date Coverage End Date MEDICAID [employer] [address] [facility] [id number] [place] MEDICARE Part A and B [address] [facility] [phone] [employer]
--- OUTSIDE RECORDS SUMMARY | 2020-09-03 12:41 | CCD | Continuity of Care Document ---
Author Author Bisi CALERO Organization Unknown Address [address] [place] [address] [place] [address] Phone [phone] Care Team Providers Care Television Cabinet Finisher Name Role Phone [facility] [phone] Problems Description No Information Available Social History [...] H/L Range Note Laboratory test finding 07/14/[address] [id number] [phone] Urine Culture <pending> Laboratory test finding 05/25/[address] [id number] [phone] Urine Culture FULL REPORT IN L <SEE NOTE> Normal 1, 2 Genital Culture FULL REPORT IN L <SEE NOTE> Normal 3 Laboratory test finding 04/18/[address] [address] [phone] Urine Culture FULL REPORT IN L <SEE [...] s Procedures Date Code Description Status 04/18/2020 56775 Therapeutic, Prophylactic Or Rosalee gnostic Injection Subq/Im [...] to follow closely with PCP, urology and [facility]. Functional Status Description No Information Available Mental Status Description No Information Available Referrals Refer to Reason for Referral Status Appt Date [facility] urology Closed
--- OUTSIDE RECORDS SUMMARY | 2020-09-03 12:41 | CCD ---
Author Author [facility] Organization [facility] Address Unknown Phone Unavailable Care Team Providers Care Patroller Name Role Phone Jian Gomez Unavailable PROBLEMS Type Condition ICD9-CM Code [id number] Code Onset Dates Condition S tatus SNOMED Code Notes Problem Recurrent UTI N39.0 Active 320067352 Problem Overactive bladder N32.81 Active 473007691 Problem Moderate episode of recurrent major depressive disorder F33.1 Active 644644142 Problem Hurthle cell carcinoma of thyroid C73 Active 286042584 Problem Excessive somnolence disorder G47.10 Active 19 1944793 Problem Iron deficiency anemia due to chronic blood loss D 50.0 Active 090211310 Problem Abnormal menses N92.6 Active 922792863 Problem Fatty liver disease, nonalcoholic K76.0 Active 515932112 Problem Adjustment disorder with anxious mood F43.22 Ac tive 90899398 Problem Paroxysmal atrial fibrillation I48.0 Active 2 02821860 Problem Other and unspecified hyperlipidemia E78.5 Act shireen 63882347 Problem Solitary nodule of right lobe of thyroid E04.1 Active 530195186 Problem 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 Active 196988 004 Problem Vitamin D deficiency E55.9 Active 94486537 Problem XANDER (obstructive sleep apnea) G47.33 Active 78 037685 Problem Obstructive sleep apnea (adult) (pediatric) G47.33 Active 65657794 Problem Medicare annual wellness visit, subsequent Z00.00 Active 656955048 Problem History of anemia Z86.2 Active 336445965 Problem Sacrococcygeal disorders, not elsewhere classified M53.3 Active 66216855 Problem Gastroesophageal reflux disease without esophagitis K21.9 Active 787866647 Problem Pacemaker Z95.0 Active 608832704 Problem Dependence on other enabling machines and devices Z99.89 Active 011786542 Problem 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 Active 327312197 Problem Other chronic pain G89.29 Active 82988778 Problem Bilateral sacroiliitis M46.1 Active 719096991 89525405 ALLERGIES Allergen (clinical drug ingredient) Drug/Non Drug Allergy do cumented on EMR Reaction Allergy Type Onset Date Status metronidazole Flagyl([facility] Code:[address]-73) Panic Attack Drug Allerg y 10/08/2019 Active metronidazole Metronidazole([facility] Code:[address]-48) Unknown Drug A llergy Active doxycycline Doxycycline([facility] Code:[address]-68) Hives Drug Aller gy Active cefdinir Cefdinir([facility] Code:[address]-87) Hives Drug Allergy Active clams Anaphylaxis Non Drug Allergy Active shrimp Unknown Non Drug Allergy Active Gardasil Anaphylaxis Drug Allergy Active Sulfa (for allergy use only) Unknown Drug Allergy Active clindamycin Clindamycin HCl([facility] Code:[address]-28) Itchy Drug A llergy Active gabapentin moodiness Non Drug Allergy Active ENCOUNTERS from 1990 to 2020-08-29 Encounter Location Date Provider Diagnosis [facility] [address] [place] [address] Aug, Rober Gomez IMMUNIZATIONS Vaccine Route Administration [...] directed for 30 day(s) Jan, Active Drisdol 08274 UNIT 1 capsule Orally weekly for 90 [...] endo/F debo (FNA unsuccessful), now goes to [facility]--Hurthle cell ca on bx, thyroidectomy 05/22--path showed [...] Details Provider Name:Jian Gomez, 2020-08 03:00:00 PM, [address], [place], [address], Insurance Providers Payer Name Payer Address Payer Phone Insured Name Patient Relati onship to Insured Coverage Start Date Coverage End Date MEDICARE Part A and B [address] [facility] [phone] [place] MEDICAID [employer] [address] [facility] [address] [place]
--- OUTSIDE RECORDS SUMMARY | 2020-09-03 12:41 | CCD | Continuity of Care Document ---
Author Author Bisi CALERO Organization Unknown Address [address] [place] [address] [place] [address] Phone [phone] Care Team Providers Care Production Planner Name Role Phone [facility] [phone] Problems Description No Information Available Social History [...] SIG Qnty Indications Ordering Provide r Date Levofloxacin 500mg Tablets 1 tabs by mouth every day 5tabs Musa Archer JR., M.D. 07/2020 Lidocaine HCL Urethral/Mucosal 2% Gel apply small [...] HCL Unknown Diltiazem HCL Unknown History Medications Nitrofurantoin Monohyd Macro 100mg Capsules 1 cap by mouth twice a day for 5 days 10caps N39.0 Musa Archer JR., M.D. 07/14/2020 - 07/19/2020 Diflucan 150mg Tablets 1 tab by mouth, may repeat in 3-5 days if needed 2tabs N39.0 Musa Archer JR., M.D. 07/14/2020 - 07/18/2020 Pyridium 200mg Tablets 1 tab by mouth [...] H/L Range Note Laboratory test finding 07/14/[address] [address] [phone] Urine Culture FULL REPORT IN L <SEE NOTE> Normal 1 Laboratory test finding 05/25/[address] [id number] [phone] Urine Culture FULL REPORT IN L <SEE NOTE> Normal 2, 3 Genital Culture FULL REPORT IN L <SEE NOTE> Normal 4 Laboratory test finding 04/18/[address] 7578454 [phone] Urine Culture FULL REPORT IN L <SEE NOTE> Abnormal 5, 6 1 FULL REPORT IN LAB NOTES ([facility]). ORGANISM 1: KLEBSIELLA PNEUMONIAE COLONY COUNT >100,000 ORGANISM 1: KLEBSIELLA PNEUMONIAE KLEBSIELLA PNEUMONIAE: REACTION TRIMETHOPRIM/SULFAMETHOXAZOLE IV 160mg TMP & 800mg SMXq6h >=320 R TRIMETHOPRIM/SULFAMETHOXAZOLE PO Bactrim DS Bid >=320 R AMPICILLIN IV 500mg q6h >=32 R AMPICILLIN PO 500mg q6h fasting >=32 R GENTAMICIN IV 80mg q8h <=1 S NITROFURANTOIN PO 100mg BID 64 I CEFAZOLIN IV 1gm q8h <=4 S LEVOFLOXACIN [...] SPCTRM BETA LACTAMASE IV NEGATIVE FOR ESBL 2 Rx Lidocaine topical 3 FULL REPORT IN LAB NOTES ([facility]). SPECIMEN APPEARS CONTAMINATED 4 FULL REPORT IN LAB NOTES ([facility]). NORMAL WISAM PRESENT 5 FULL REPORT IN LAB NOTES (e[facility] W [...] SPCTRM BETA LACTAMASE IV NEGATIVE FOR ESBL 6 04/20/20 (SunApr 20) 08:48 AM CHRIS DEUTSCH macrobid = s Procedures Date Code Description Status 04/18/2020 91950 Therapeutic, Prophylactic Or Rosalee gnostic Injection Subq/Im Completed Medical Devices Description No Information Available Encounters Type Date Location Provider Dx Diagnosis Office Visit 07/14/2020 10:00a [facility] Dane Calero, P .ATigre N39.0 Urinary tract infection, site not specified [...] Urinary tract infection, site no t specified Dane Calero, Hector 05/25/2020 N30.11 Interstitial cystitis (chronic) with hematuria MAKENNA Portillo 05/25/2020 N76.1 Subacute and chronic vaginitis MAKENNA Hassan 04/18/2020 R30.0 Dysuria MAKENNA Mortensen 04/18/2020 M54.5 Low back pain MAKENNA Mortensen 01/26/2020 B35.9 Dermatophytosis, unspecified MAKENNA Childers Plan of Treatment 07/14/2020 - Dane Calero, P.A.* N39.0 Urinary tract infection, site not specified* New Medication:* Nitrofurantoin Monohyd Macro 100 mg - 1 cap by mouth twice a day for 5 days * Diflucan 150 mg - 1 tab by mouth, may repeat in 3-5 days if needed * Comments:* UA today has some blood only - relatively benign but will cover for infectious etiologies with MacobidJaswinderll send urine for C&S, multiple past cultures have been contaminatedShe should finish Macrobid unless otherwise notified and she needs to follow closely with PCP, urology and [place]. Functional Status Description No Information Available Mental Status Description No Information Available Referrals Refer to Reason for Referral Status Appt Date [facility] Closed
--- OUTSIDE RECORDS SUMMARY | 2020-09-03 12:41 | CCD ---
Author Author [facility] Organization [facility] Address Unknown Phone Unavailable Care Team Providers Care Book Reviewer Name Role Phone Jian Gomez Unavailable PROBLEMS Type Condition ICD9-CM Code [id number] Code Onset Dates Condition S tatus SNOMED Code Notes Problem Recurrent UTI N39.0 Active 426714753 Problem Overactive bladder N32.81 Active 362350454 Problem Moderate episode of recurrent major depressive disorder F33.1 Active 612272173 Problem Hurthle cell carcinoma of thyroid C73 Active 674251064 Problem Excessive somnolence disorder G47.10 Active 19 7815755 Problem Iron deficiency anemia due to chronic blood loss D 50.0 Active 149314591 Problem Abnormal menses N92.6 Active 153253453 Problem Fatty liver disease, nonalcoholic K76.0 Active 639555517 Problem Adjustment disorder with anxious mood F43.22 Ac tive 13254257 Problem Paroxysmal atrial fibrillation I48.0 Active 2 31119174 Problem Other and unspecified hyperlipidemia E78.5 Act shireen 17232503 Problem Solitary nodule of right lobe of thyroid E04.1 Active 525529216 Problem 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 Active 432673 004 Problem Vitamin D deficiency E55.9 Active 03070549 Problem XANDER (obstructive sleep apnea) G47.33 Active 78 286443 Problem Obstructive sleep apnea (adult) (pediatric) G47.33 Active 04199011 Problem Medicare annual wellness visit, subsequent Z00.00 Active 547304100 Problem History of anemia Z86.2 Active 612977572 Problem Sacrococcygeal disorders, not elsewhere classified M53.3 Active 75695360 Problem Gastroesophageal reflux disease without esophagitis K21.9 Active 012992442 Problem Pacemaker Z95.0 Active 578362304 Problem Dependence on other enabling machines and devices Z99.89 Active 027240407 Problem 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 Active 726308459 Problem Other chronic pain G89.29 Active 64321949 Problem Bilateral sacroiliitis M46.1 Active 542580957 31507867 ALLERGIES Allergen (clinical drug ingredient) Drug/Non Drug Allergy do cumented on EMR Reaction Allergy Type Onset Date Status metronidazole Flagyl([facility] Code:[address]-59) Panic Attack Drug Allerg y 10/08/2019 Active metronidazole Metronidazole([facility] Code:[address]-19) Unknown Drug A llergy Active doxycycline Doxycycline([facility] Code:[address]-89) Hives Drug Aller gy Active cefdinir Cefdinir([facility] Code:[address]-84) Hives Drug Allergy Active clams Anaphylaxis Non Drug Allergy Active shrimp Unknown Non Drug Allergy Active Gardasil Anaphylaxis Drug Allergy Active Sulfa (for allergy use only) Unknown Drug Allergy Active clindamycin Clindamycin HCl([facility] Code:[address]-14) Itchy Drug A llergy Active gabapentin moodiness Non Drug Allergy Active ENCOUNTERS from 1990 to 2020-06-17 Encounter Location Date Provider Diagnosis [facility] [address] [place] [address] Jun, Rober Gomez IMMUNIZATIONS Vaccine Route Administration Date [...] MEDICATIONS Medication SIG (Take, Route, Frequency, Duration) Start Date En d Date Status Lyrica 25 MG 1 capsule Orally bid for 30 Days Nov, Not-Taking Ibuprofen 800 MG 1 tablet Orally Three times a day as needed for 30 Active Flonase Allergy Relief 50 MCG/ACT 1 spray in each nost ril Nasally Once a day for 90 day(s) Jan, Active Diflucan 150 MG 1 tablet Orally 1 for 1 days Jan, Active Diltiazem CD 180 MG 1 capsule Orally Once a day for 30 days Active Myrbetriq 25 MG 1 tablet Orally Once a day for 30 day(s) Feb, Active Wheelchair Cushion - as directed DX:G80.8 as directed for 90 day(s) Nov, Active Azithromycin 250 MG 2 tablet on the first day, then 1 tablet daily for 4 days Orally Once a day for 5 day(s) Feb, Not-Takin g Wheelchair - g80.8, z99.3 lightweight _ for 99 months Jul, Active EpiPen 2-Winston 0.3 MG/0.3ML as directed Injection as directed for 30 day(s) Jan, Active Multivitamins - as directed Orally Active Ciprodex 0.3-0.1 % 4 drops into affected ear Otic Twice a d ay for 7 day(s) Feb, Active Fluconazole 150 MG 1 tab Orally Daily for 3 days Jan, Active HydrOXYzine HCl 25 MG 1 tablet as needed Orally fo ur times daily as needed for 30 day(s) Sep, Active Omeprazole 40 MG 1 capsule Orally Once a day for 90 day(s) Active Baclofen 20 MG 1 1/2 tablet with food or mi lk Orally Three times a day as needed for 90 Active Tinidazole 500 MG 2 tablets with food Orally Once a day fo r 5 day(s) Jun, Not-Taking PROzac 20 MG 1 capsule in the morning Orally Once a d ay, with 10 mg cap for 30 Active Metronidazole 0.75 % _insert 1 APPLICATORFUL VAGI THONY TWO TIMES A DAY FOR 7 DAYS Vaginal Twice a day for 7 day(s) Ac tive Ferrous Sulfate 325 (65 Fe) MG 1 tablet Orally Daily for 90 days Jun, Not-Taking PROzac 10 MG 1 capsule in the morning Orally Once a d ay, with 20 mg cap for 30 Active Drisdol 06666 UNIT 1 capsule Orally weekly for 90 day(s) Aug, Not-Taking PROCEDURES No Information RESULTS No Results REASON FOR VISIT hydroxine MEDICAL (GENERAL) HISTORY Type Description Date Medical History depression--[facility] at 17 yo Medical History Atrial fibrillation, 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 Medical History anemia, iron deficient Medical History cerebral palsy, BLE paraplegia Medical History hip dysplasia bilat Medical History fatty liver CT 02/19 Medical History rt thyroid mass, seen endo/F debo (FNA unsuccessful), now goes to [facility]--Hurthle cell ca on bx, thyroidectomy 05/22--path [...] Information ASSESSMENTS No Information PLAN OF TREATMENT Medication Medication Name Sig Start Date Stop Date Baclofen 20 MG 1 1/2 tablet with food or mi lk Orally Three times a day as needed for 90 PROzac 10 MG 1 capsule in the morning Orally Once a d ay, with 20 mg cap for 30 PROzac 20 MG 1 capsule in the morning Orally Once a d ay, with 10 mg cap for 30 Ciprodex 0.3-0.1 % 4 drops into affected ear Otic Twice a d ay for 7 day(s) Feb, Insurance Providers Payer Name Payer Address Payer Phone Insured Name Patient Relati onship to Insured Coverage Start Date Coverage End Date MEDICARE Part A and B [address] [facility] [phone] [place] MEDICAID [employer] [address] [facility] [id number] [place] self
--- OUTSIDE RECORDS SUMMARY | 2020-09-03 12:41 | CCD ---
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 192232169 Problem Excessive somnolence disorder G47.10 Active 19 5886400 Problem Iron deficiency anemia due to chronic blood loss D 50.0 Active 636292731 Problem Abnormal menses N92.6 Active 329057477 Problem Fatty liver disease, nonalcoholic K76.0 Active 703617725 Problem Adjustment disorder with anxious mood F43.22 Ac tive 56331295 Problem Paroxysmal atrial fibrillation I48.0 Active 2 38003687 Problem Other and unspecified hyperlipidemia E78.5 Act shireen 31430431 Problem Solitary nodule of right lobe of thyroid E04.1 Active 171457799 Problem 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 Active 104925 004 Problem Vitamin D deficiency E55.9 Active 18282751 Problem XANDER (obstructive sleep apnea) G47.33 Active 78 911548 Problem Obstructive sleep apnea (adult) (pediatric) G47.33 Active 54713588 Problem Medicare annual wellness visit, subsequent Z00.00 Active 711103678 Problem History of anemia Z86.2 Active 454285085 Problem Sacrococcygeal disorders, not elsewhere classified M53.3 Active 84311692 Problem Gastroesophageal reflux disease without esophagitis K21.9 Active 408101809 Problem Pacemaker Z95.0 Active 693131572 Problem Dependence on other enabling machines and devices Z99.89 Active 639696064 Problem 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 Code:[address]-96) Panic Attack Drug Allerg y 10/08/2019 Active metronidazole Metronidazole([facility] Code:[address]-38) Unknown Drug A llergy Active doxycycline Doxycycline([facility] Code:[address]-33) Hives Drug Aller gy Active cefdinir Cefdinir([facility] Code:[address]-60) Hives Drug Allergy Active clams Anaphylaxis Non Drug Allergy Active shrimp Unknown Non Drug Allergy Active Gardasil Anaphylaxis Drug Allergy Active Sulfa (for allergy use only) Unknown Drug Allergy Active clindamycin Clindamycin HCl([facility] Code:[address]-79) Itchy Drug A llergy Active gabapentin moodiness Non Drug Allergy Active ENCOUNTERS from 1990 to 2020-08-09 Encounter Location Date Provider Diagnosis [facility] [address] [place] [address] Aug, Rober Gomez IMMUNIZATIONS Vaccine Route Administration [...] Notes Start Da te End Date Status Ibuprofen 800 MG 1 tablet Orally Three times a day as needed for 30 Active Drisdol 31296 UNIT 1 capsule Orally weekly for 90 day(s) 1 Aug, Not-Taking Diltiazem CD 180 MG 1 capsule Orally Once a day for 30 days Active Baclofen 20 MG 1 1/2 tablet with food or mi lk Orally Three times a day as needed for 90 Active Lyrica 25 MG 1 capsule Orally bid for 30 Days Nov, Not-Taking Myrbetriq 25 MG 1 tablet Orally Once a day for 30 day(s) 1 4 Feb, 2020 Active Flonase Allergy Relief 50 MCG/ACT 1 spray in each nost ril Nasally Once a day for 90 day(s) Jan, Active Azithromycin 250 MG 2 tablet on the first day, then 1 tablet daily for 4 days Orally Once a day for 5 day(s) Feb, N ot-Taking Wheelchair - g80.8, z99.3 lightweight _ for 99 months 05 D 2017 Active EpiPen 2-Winston 0.3 MG/0.3ML as directed Injection as directed for 30 day(s) Jan, Active Ciprodex 0.3-0.1 % 4 drops into affected ear Otic Twice a day fo r 7 day(s) Feb, Active Diflucan 150 MG 1 tablet Orally 1 for 1 days Jan, Active Fluconazole 150 MG 1 tab Orally Daily for 3 days Jan, 2 019 Active Tinidazole 500 MG 2 tablets with food Orally Once a day for 5 da y(s) Jun, Not-Taking PROzac 20 MG 1 capsule in the morning Orally Once a d ay, with 10 mg cap for 30 Active Omeprazole 40 MG 1 capsule Orally Once a day for 90 day(s) Active Multivitamins - as directed Orally A ctive Wheelchair Cushion - as directed DX:G80.8 as directed for 90 day (s) Nov, Active Metronidazole 0.75 % _insert 1 APPLICATORFUL VAGI THONY TWO TIMES A DAY FOR 7 DAYS Vaginal Twice a day for 7 day(s) Active Ferrous Sulfate 325 (65 Fe) MG 1 tablet Orally Daily for 90 days Jun, Not-Taking PROzac 10 MG 1 capsule in the morning Orally Once a d ay, with 20 mg cap for 30 Active HydrOXYzine HCl 25 MG 1 tablet as needed Orally fo ur times daily as needed for 30 day(s) Sep, Active PROCEDURES No Information RESULTS No Results REASON FOR VISIT omeprazole MEDICAL (GENERAL) HISTORY Type Description Date Medical History depression--[facility] at 17 yo Medical History Atrial fibrillation, 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 - [facility] Cardio Medical History anemia, iron deficient Medical History cerebral palsy, BLE paraplegia Medical History hip dysplasia bilat Medical History fatty liver CT 02/19 Medical History rt thyroid mass, seen endo/F debo (FNA unsuccessful), now goes to [facility]--Hurthle cell ca on bx, thyroidectomy 05/22--path [...] Medication Name Sig Start Date Stop Date Omeprazole 40 MG 1 capsule Orally Once a day for 90 day(s) PROzac 10 MG 1 capsule in the morning Orally Once a d ay, with 20 mg cap for 30 Ciprodex 0.3-0.1 % 4 drops into affected ear Otic Twice a d ay for 7 day(s) Feb, Baclofen 20 MG 1 1/2 tablet with food or mi lk Orally Three times a day as needed for 90 PROzac 20 MG 1 capsule in the morning Orally Once a d ay, with 10 mg cap for 30 Next Appt Details Provider Name:Jian Jason, 2020-08 11:30:00 AM, [address], [place], [address], Insurance Providers Payer Name Payer Address Payer Phone Insured Name Patient Relati onship to Insured Coverage Start Date Coverage End Date MEDICARE Part A and B [address] [facility] [phone] [place] self MEDICAID [employer] [address] [facility] [id number] [place] self
--- OUTSIDE RECORDS SUMMARY | 2020-09-03 12:41 | CCD ---
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 633991232 Problem Excessive somnolence disorder G47.10 Active 19 4030259 Problem Iron deficiency anemia due to chronic blood loss D 50.0 Active 776133845 Problem Abnormal menses N92.6 Active 630907197 Problem Fatty liver disease, nonalcoholic K76.0 Active 204172967 Problem Adjustment disorder with anxious mood F43.22 Ac tive 75682054 Problem Paroxysmal atrial fibrillation I48.0 Active 2 48468527 Problem Other and unspecified hyperlipidemia E78.5 Act shireen 88908157 Problem Solitary nodule of right lobe of thyroid E04.1 Active 307374141 Problem 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 Active 165936 004 Problem Vitamin D deficiency E55.9 Active 83027023 Problem XANDER (obstructive sleep apnea) G47.33 Active 78 785583 Problem Obstructive sleep apnea (adult) (pediatric) G47.33 Active 33175433 Problem Medicare annual wellness visit, subsequent Z00.00 Active 581402086 Problem History of anemia Z86.2 Active 476467376 Problem Sacrococcygeal disorders, not elsewhere classified M53.3 Active 74878416 Problem Gastroesophageal reflux disease without esophagitis K21.9 Active 650573080 Problem Pacemaker Z95.0 Active 286474559 Problem Dependence on other enabling machines and devices Z99.89 Active 981013279 Problem 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 Code:[address]-66) Panic Attack Drug Allerg y 10/08/2019 Active metronidazole Metronidazole([facility] Code:[address]-56) Unknown Drug A llergy Active doxycycline Doxycycline([facility] Code:[address]-97) Hives Drug Aller gy Active cefdinir Cefdinir([facility] Code:[address]-68) Hives Drug Allergy Active clams Anaphylaxis Non Drug Allergy Active shrimp Unknown Non Drug Allergy Active Gardasil Anaphylaxis Drug Allergy Active Sulfa (for allergy use only) Unknown Drug Allergy Active clindamycin Clindamycin HCl([facility] Code:[address]-51) Itchy Drug A llergy Active gabapentin moodiness Non Drug Allergy Active ENCOUNTERS from 1990 to 2020-08-29 Encounter Location Date Provider Diagnosis [facility] [address] [place] [address] Aug, Rboer Gomez History of anemia Z86.2 ; Gastroesophageal reflux disease without esophagitis K21.9 ; Fatty liver disease, nonalcoholic K76.0 ; Adjustment disorder with anxious mood F43.22 ; Hurthle cell carcinoma of thyroid C73 ; Paroxysmal atrial fibrillation I48.0 ; Iron deficiency anemia due to chronic blood loss D50.0 ; Other and unspecified hyperlipidemia E78.5 and Vitamin D deficiency E55.9 IMMUNIZATIONS Vaccine Route Administration Date Status Gardasil [...] REASON FOR REFERRAL No Information VITAL SIGNS Weight 221.6 lbs Aug, Height 68 in Aug, BMI 33.69 kg/m2 Aug, Heart Rate 91 /min Aug, Respiratory Rate 18 /min Aug, Temperature 96.8 degrees Fahrenheit Aug, Oximetry 98 Aug, Blood pressure systolic 144 mm Hg Aug, Blood pressure diastolic 78 mm Hg Aug, MEDICATIONS Medication SIG (Take, Route, Frequency, Duration) Notes Start Da te End Date Status EpiPen 2-Winston 0.3 MG/0.3ML as directed Injection as directed for 30 day(s) Jan, Active Drisdol 13138 UNIT 1 capsule Orally weekly for 90 day(s) 1 Aug, Not-Taking Omeprazole 40 MG 1 capsule Orally Once a day for 90 day(s) Active PROzac 10 MG 1 capsule in the morning Orally Once a d ay, with 20 mg cap for 30 Active Wheelchair - g80.8, z99.3 lightweight _ for 99 months 05 2017 Active Ibuprofen 800 MG 1 tablet [...] tab Orally Daily for 3 days Jan, 019 Active PROzac 20 MG 1 capsule [...] (s) Nov, Active PROCEDURES No Information RESULTS REASON FOR VISIT 6 month, needs DSS paperwork (scanned to chart), ? 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--Hurthle cell ca on bx, thyroidectomy 05/22--path [...] No Information FUNCTIONAL STATUS No Information ASSESSMENTS Encounter Date Diagnosis Assessment Notes Treatment Notes Treatm ent Clinical Notes Aug, History of anemia (ICD-10 - Z86.2) Aug, Gastroesophageal reflux dise ase without esophagitis (ICD-10 - K21.9) Aug, Fatty liver disease, nonalcoholic (ICD-10 - K76. 0) Aug, Adjustment disorder with anxious mood (ICD-10 - F43.22) Aug, Hurthle cell carcinoma of thyroid (ICD-10 - C73) Aug, Paroxysmal atrial fibrillation (ICD-10 - I48.0) Aug, Iron deficiency anemia due to chronic bl ood loss (ICD-10 - D50.0) Aug, Other and unspecified hyperlipidemia (ICD-10 - E 78.5) Aug, Vitamin D deficiency (ICD-10 - E55.9) PLAN OF TREATMENT Treatment Notes Test Name Order Date FERRITIN 2020-08-29 TOTAL IRON BINDING CAPACIT 2020-08-29 Next Appt Details 3 Months MAW Reason: Provider Name:Jian Jason, 2020-08 03:00:00 PM, [address], [place], [address], Insurance Providers Payer Name Payer Address Payer Phone Insured Name Patient Relati onship to Insured Coverage Start Date Coverage End Date MEDICAID [employer] [address] [facility] [id number] [place] self MEDICARE Part A and B [address] [facility] [id number] [phone] [place] self
--- OUTSIDE RECORDS SUMMARY | 2020-09-03 12:42 | CCD ---
Author Author [facility] Organization [facility] Address Unknown Phone Unavailable Care Team Providers Care Buckram Sewer Name Role Phone Clifton Villalobos GRADUATE RN Unavailable Unavailable Hill, A Cynthia GRADUATE RN Unavailable Unavailable Hill, A Cynthia GRADUATE RN Unavailable Unavailable Hill, A Cynthia GRADUATE RN Unavailable Unavailable Hill, A Cynthia GRADUATE RN Unavailable Unavailable Hill, A Cynthia GRADUATE RN Unavailable Unavailable Hill, A Cynthia GRADUATE RN Unavailable Unavailable Hill, A Cynthia GRADUATE RN Unavailable Unavailable Hill, A Cynthia GRADUATE RN Unavailable Unavailable Hill, A Cynthia GRADUATE RN Unavailable Unavailable Hill, A Cynthia GRADUATE RN Unavailable Unavailable Hill, A Cynthia GRADUATE RN Unavailable Unavailable Hill, A Cynthia GRADUATE RN Unavailable Unavailable Hill, A Cynthia GRADUATE RN Unavailable Unavailable Hill, A Cynthia GRADUATE RN Unavailable Unavailable Hill, A Cynthia GRADUATE RN Unavailable Unavailable Hill, A Cynthia GRADUATE RN Unavailable Unavailable Hill, A Cynthia GRADUATE RN Unavailable Unavailable Hill, A Cynthia GRADUATE RN Unavailable Unavailable Hill, A Cynthia GRADUATE RN Unavailable Unavailable Hill, A Cynthia GRADUATE RN Unavailable Unavailable DODGE, A GOLDEN Unavailable Unavailable Wetterhahn, Jian DHILLON Unavailable Unavailable Wetterhahn, Jian DHILLON Unavailable Unavailable Wetterhahn, Jian DHILLON Unavailable Unavailable Wetterhahn, Jian DHILLON Unavailable Unavailable Wetterhahn, Jian DHILLON Unavailable Unavailable Wetterhahn, Jian DHILLON Unavailable Unavailable Wetterhahn, Jian DHILLON Unavailable Unavailable Wetterhahn, Jian DHILLON Unavailable Unavailable Wetterhahn, Jian DHILLON Unavailable Unavailable Wetterhahn, Jian DHILLON Unavailable Unavailable Wetterhahn, Jian DHILLON Unavailable Unavailable Wetterhahn, Jian DHILLON Unavailable Unavailable Wetterhahn, Jian DHILLON Unavailable Unavailable Wetterhahn, Jian DHILLON Unavailable Unavailable Wetterhahn, Jian DHILLON Unavailable Unavailable Wetterhahn, Jian DHILLON Unavailable Unavailable Wetterhahn, Jian DHILLON Unavailable Unavailable Wetterhahn, Jian DHILLON Unavailable Unavailable Wetterhahn, Jian DHILLON Unavailable Unavailable Wetterhahn, Jian DHILLON Unavailable Unavailable Wetterhahn, Jian DHILLON Unavailable Unavailable Wetterhahn, Jian DHILLON Unavailable Unavailable Wetterhahn, Jian DHILLON Unavailable Unavailable Wetterhahn, Jian DHILLON Unavailable Unavailable Wetterhahn, Jian DHILLON Unavailable Unavailable Wetterhahn, Jian DHILLON Unavailable Unavailable Wetterhahn, Jian DHILLON Unavailable Unavailable Wetterhahn, Jian DHILLON Unavailable Unavailable Wetterhahn, Jian DHILLON Unavailable Unavailable Wetterhahn, Jian DHILLON Unavailable Unavailable Wetterhahn, Jian DHILLON Unavailable Unavailable Wetterhahn, Jian DHILLON Unavailable Unavailable Wetterhahn, Jian DHILLON Unavailable Unavailable Wetterhahn, Jian DHILLON Unavailable Unavailable Wetterhahn, Jian DHILLON Unavailable Unavailable Wetterhahn, Jian DHILLON Unavailable Unavailable Wetterhahn, Jian DHILLON Unavailable Unavailable Wetterhahn, Jian DHILLON Unavailable Unavailable Wetterhahn, Jian DHILLON Unavailable Unavailable Wetterhahn, Jian DHILLON Unavailable Unavailable Wetterhahn, Jian DHILLON Unavailable Unavailable Wetterhahn, Jian DHILLON Unavailable Unavailable Wetterhahn, Jian DHILLON Unavailable Unavailable Wetterhahn, Jian DHILLON Unavailable Unavailable Wetterhahn, Jian DHILLON Unavailable Unavailable Wetterhahn, Jian DHILLON Unavailable Unavailable Wetterhahn, Jian DHILLON Unavailable Unavailable Wetterhahn, Jian DHILLON Unavailable Unavailable Wetterhahn, Jian DHILLON Unavailable Unavailable Wetterhahn, Jina DHILLON Unavailable Unavailable Wetterhahn, Jian DHILLON Unavailable Unavailable Wetterhahn, Jian DHILLON Unavailable Unavailable Wetterhahn, Jian DHILLON Unavailable Unavailable Wetterhahn, Jian DHILLON Unavailable Unavailable Wetterhahn, Jian DHILLON Unavailable Unavailable Wetterhahn, Jian DHILLON Unavailable Unavailable Wetterhahn, Jian DHILLON Unavailable Unavailable Wetterhahn, Jian DHILLON Unavailable Unavailable Wetterhahn, Jian DHILLON Unavailable Unavailable Wetterhahn, Jian DHILLON Unavailable Unavailable Wetterhahn, Jian DHILLON Unavailable Unavailable Wetterhahn, Jian DHILLON Unavailable Unavailable Wetterhahn, Jian DHILLON Unavailable Unavailable Wetterhahn, Jian DHILLON Unavailable Unavailable Wetterhahn, Jian DHILLON Unavailable Unavailable Wetterhahn, Jian DHILLON Unavailable Unavailable Wetterhahn, Jian DHILLON Unavailable Unavailable Wetterhahn, Jian DHILLON Unavailable Unavailable Wetterhahn, Jian DHILLON Unavailable Unavailable Wetterhahn, Jian DHILLON Unavailable Unavailable Wetterhahn, Jian DHILLON Unavailable Unavailable ROBERT, GEORGETTE ACEVEDOW DO Unavailable Unavailable ROBERT, GEORGETTE CODY DO Unavailable Unavailable ROBERT, GEORGETTE CODY DO Unavailable Unavailable ROBERT, GEORGETTE CODY DO Unavailable Unavailable ROBERT, GEORGETTE CODY DO Unavailable Unavailable ROBERT, GEORGETTE CODY DO Unavailable Unavailable ROBERT, GEORGETTE CODY DO Unavailable Unavailable ROBERT, GEORGETTE CODY DO Unavailable Unavailable ROBERT, GEORGETTE CODY DO Unavailable Unavailable ROBERT, GEORGETTE CODY DO Unavailable Unavailable ROBERT, GEORGETTE CODY DO Unavailable Unavailable ROBERT, GEORGETTE CODY DO Unavailable Unavailable ROBERTGEORGETTE DO Unavailable Unavailable ROBERTGEORGETTE DO Unavailable Unavailable ROBERT, GEORGETTE CODY DO Unavailable Unavailable ROBERT, GEORGETTE CODY DO Unavailable Unavailable ROBERT, GEORGETTE CODY DO Unavailable Unavailable ROBERT, GEORGETTE CODY DO Unavailable Unavailable ROBERT, GEORGETTE CODY DO Unavailable Unavailable ROBERT, GEORGETTE CODY DO Unavailable Unavailable ROBERT, GEORGETTE CODY DO Unavailable Unavailable ROBERT, GEORGETTE CODY DO Unavailable Unavailable ROBERT, GEORGETTE CODY DO Unavailable Unavailable ROBERT, GEORGETTE CODY DO Unavailable Unavailable ROBERT, GEORGETTE CODY DO Unavailable Unavailable ROBERT, GEORGETTE CODY DO Unavailable Unavailable ROBERT, GEORGETTE CODY DO Unavailable Unavailable ROBERT, GEORGETTE CODY DO Unavailable Unavailable ROBERT, GEORGETTE CODY DO Unavailable Unavailable ROBERT, GEORGETTE CODY DO Unavailable Unavailable ROBERT, GEORGETTE CODY DO Unavailable Unavailable ROBERT, GEORGETTE CODY DO Unavailable Unavailable ROBERT, GEORGETTE CODY DO Unavailable Unavailable ROBERT, GEORGETTE CODY DO Unavailable Unavailable ROBERT, GEORGETTE CODY DO Unavailable Unavailable ROBERT, GEORGETTE CODY DO Unavailable Unavailable ROBERT, GEORGETTE CODY DO Unavailable Unavailable ROBERT, GEORGETTE CODY DO Unavailable Unavailable ROBERT, GEORGETTE CODY DO Unavailable Unavailable ROBERT, GEORGETTE CODY DO Unavailable Unavailable ROBERT, GEORGETTE CODY DO Unavailable Unavailable ROBERT, GEORGETTE CODY DO Unavailable Unavailable ROBERT, GEORGETTE CODY DO Unavailable Unavailable ROBERT, GEORGETTE CODY DO Unavailable Unavailable ROBERT, GEORGETTE CODY DO Unavailable Unavailable ROBERT, GEORGETTE CODY DO Unavailable Unavailable ROBERT, GEORGETTE CODY DO Unavailable Unavailable ROBERT, GEORGETTE CODY DO Unavailable Unavailable ROBERT, GEORGETTE CODY DO Unavailable Unavailable ROBERT, GEOGRETTE CODY DO Unavailable Unavailable ROBERT, GEORGETTE CODY DO Unavailable Unavailable ROBERT, GEORGETTE CODY DO Unavailable Unavailable ROBERT, GEORGETTE CODY DO Unavailable Unavailable ROBERT, GEORGETTE CODY DO Unavailable Unavailable ROBERT, GEORGETTE CODY DO Unavailable Unavailable ROBERT, GEORGETTE CODY DO Unavailable Unavailable ROBERT, GEORGETTE CODY DO Unavailable Unavailable ROBERT, GEORGETTE CODY DO Unavailable Unavailable ROBERT, GEORGETTE CODY DO Unavailable Unavailable ROBERT, GEORGETTE CODY DO Unavailable Unavailable Cristiana Parada MD Unavailable Unavailable Cristiana Parada MD Unavailable Unavailable Cristiana Parada MD Unavailable Unavailable Cristiana Parada MD Unavailable Unavailable Cristiana Parada MD Unavailable Unavailable Cristiana Parada MD Unavailable Unavailable Cristiana Parada MD Unavailable Unavailable Cristiana Parada MD Unavailable Unavailable Cristiana Parada MD Unavailable Unavailable Cristiana Parada MD Unavailable Unavailable Cristiana Parada MD Unavailable Unavailable Cristiana Parada MD Unavailable Unavailable Cristiana Parada MD Unavailable Unavailable Cristiana Parada MD Unavailable Unavailable Cristiana Parada MD Unavailable Unavailable Cristiana Parada MD Unavailable Unavailable Cristiana Parada MD Unavailable Unavailable Cristiana Parada MD Unavailable Unavailable Cristiana Parada MD Unavailable Unavailable Cristiana Parada MD Unavailable Unavailable Cristiana Parada MD Unavailable Unavailable Cristiana Parada MD Unavailable Unavailable Cristiana Parada MD Unavailable Unavailable Cristiana Parada MD Unavailable Unavailable Cristiana Paarda MD Unavailable Unavailable Cristiana Parada MD Unavailable Unavailable Cristiana Parada MD Unavailable Unavailable Cristiana Parada MD Unavailable Unavailable Cristiana Parada MD Unavailable Unavailable Cristiana Parada MD Unavailable Unavailable Cristiana Parada MD Unavailable Unavailable Cristiana Parada MD Unavailable Unavailable Cristiana Parada MD Unavailable Unavailable IaCristiana muhammad MD Unavailable Unavailable IaCristiana muhammad MD Unavailable Unavailable IaCristiana muhammad MD Unavailable Unavailable IaCristiana muhammad MD Unavailable Unavailable IaCristiana muhammad MD Unavailable Unavailable IaCristiana muhammad MD Unavailable Unavailable IaCristiana muhammad MD Unavailable Unavailable IaCristiana muhammad MD Unavailable Unavailable IaCristiana muhammad MD Unavailable Unavailable IaCristiana muhammad MD Unavailable Unavailable IaCristiana muhammad MD Unavailable Unavailable Cristiana Parada MD Unavailable Unavailable Cristiana Parada MD Unavailable Unavailable Cristiana Parada MD Unavailable Unavailable Cristiana Parada MD Unavailable Unavailable Cristiana Parada MD Unavailable Unavailable Cristiana Parada MD Unavailable Unavailable Cristiana Parada MD Unavailable Unavailable IaCristiana muhammad MD Unavailable Unavailable WetterhahnJian MD Unavailable Unavailable WetterhahnJian MD Unavailable Unavailable WetterhahnJian MD Unavailable Unavailable WetterhahnJian MD Unavailable Unavailable WetterhahnJian MD Unavailable Unavailable WetterhahnJian MD Unavailable Unavailable WetterhahnJian MD Unavailable Unavailable WetterhahnJian MD Unavailable Unavailable WetterhahnJian MD Unavailable Unavailable WetterhahnJian MD Unavailable Unavailable WetterhahnJian MD Unavailable Unavailable WetterhahnJian MD Unavailable Unavailable WetterhahnJian MD Unavailable Unavailable WetterhahnJian MD Unavailable Unavailable WetterhahnJian MD Unavailable Unavailable WetterhahnJian MD Unavailable Unavailable WetterhahnJian MD Unavailable Unavailable WetterhahnJian MD Unavailable Unavailable WetterhahnJian MD Unavailable Unavailable WetterhahnJian MD Unavailable Unavailable WetterhahnJina MD Unavailable Unavailable WetterhahnJian MD Unavailable Unavailable WetterhahnJian MD Unavailable Unavailable WetterhahnJian MD Unavailable Unavailable WetterhahnJian MD Unavailable Unavailable WetterhahnJian MD Unavailable Unavailable WetterhahnJian MD Unavailable Unavailable WetterhahnJian MD Unavailable Unavailable WetterhahnJian MD Unavailable Unavailable WetterhahnJian MD Unavailable Unavailable WetterhahnJian MD Unavailable Unavailable WetterhahnJian MD Unavailable Unavailable WetterhahnJian MD Unavailable Unavailable WetterhahnJian MD Unavailable Unavailable WetterhahnJian MD Unavailable Unavailable WetterhahnJian MD Unavailable Unavailable WetterhahnJian MD Unavailable Unavailable WetterhahnJian MD Unavailable Unavailable WetterhahnJian MD Unavailable Unavailable WetterhahnJian MD Unavailable Unavailable WetterhahnJian MD Unavailable Unavailable WetterhahnJian MD Unavailable Unavailable Wetterhahn, Jian DHILLON Unavailable Unavailable Wetterhahn, Jian DHILLON Unavailable Unavailable Wetterhahn, Jian DHILLON Unavailable Unavailable Wetterhahn, Jian DHILLON Unavailable Unavailable WetterhahnJian MD Unavailable Unavailable Wetterhahn, Jian DHILLON Unavailable Unavailable Wetterhahn, Jian DHILLON Unavailable Unavailable Wetterhahn, Jian DHILLON Unavailable Unavailable Wetterhahn, Jian DHILLON Unavailable Unavailable Wetterhahn, Jian DHILLON Unavailable Unavailable Wetterhahn, Jian DHILLON Unavailable Unavailable Wetterhahn, Jian DHILLON Unavailable Unavailable Wetterhahn, Jian DHILLON Unavailable Unavailable Wetterhahn, Jian DHILLON Unavailable Unavailable Wetterhahn, Jian DHILLON Unavailable Unavailable Wetterhahn, Jian DHILLON Unavailable Unavailable Wetterhahn, Jian DHILLON Unavailable Unavailable Wetterhahn, Jian DHILLON Unavailable Unavailable WetterhahnJian MD Unavailable Unavailable WetterhahnJian MD Unavailable Unavailable WetterhahnJian MD Unavailable Unavailable Wetterhahn, Jian DHILLON Unavailable Unavailable Wetterhahn, Jian DHILLON Unavailable Unavailable Wetterhahn, Jian DHILLON Unavailable Unavailable Wetterhahn, Jian DHILLON Unavailable Unavailable Wetterhahn, Jian DHILLON Unavailable Unavailable Wetterhahn, Jian DHILLON Unavailable Unavailable WetterhahnJian MD Unavailable Unavailable Wetterhahn, Jian DHILLON Unavailable Unavailable Cristiana Parada MD Unavailable Unavailable Cristiana Parada MD Unavailable Unavailable Cristiana Parada MD Unavailable Unavailable Cristiana Parada MD Unavailable Unavailable Cristiana Parada MD Unavailable Unavailable Cristiana Parada MD Unavailable Unavailable Cristiana Parada MD Unavailable Unavailable Cristiana Parada MD Unavailable Unavailable Cristiana Parada MD Unavailable Unavailable Cristiana Parada MD Unavailable Unavailable Cristiana Parada MD Unavailable Unavailable Cristiana Parada MD Unavailable Unavailable Cristiana Parada MD Unavailable Unavailable Cristiana Parada MD Unavailable Unavailable Cristiana Parada MD Unavailable Unavailable Cristiana Parada MD Unavailable Unavailable Cristiana Parada MD Unavailable Unavailable Cristiana Parada MD Unavailable Unavailable Cristiana Parada MD Unavailable Unavailable IaCristiana muhammad MD Unavailable Unavailable Cristiana Parada MD Unavailable Unavailable Cristiana Parada MD Unavailable Unavailable Cristiana Parada MD Unavailable Unavailable Cristiana Parada MD Unavailable Unavailable Cristiana Parada MD Unavailable Unavailable Cristiana Parada MD Unavailable Unavailable IaCristiana muhammad MD Unavailable Unavailable IaCristiana muhammad MD Unavailable Unavailable IaCristiana muhammad MD Unavailable Unavailable IaCristiana muhammad MD Unavailable Unavailable IaCristiana muhammad MD Unavailable Unavailable IaCristiana muhammad MD Unavailable Unavailable IaCristiana muhammad MD Unavailable Unavailable IaCristiana muhammad MD Unavailable Unavailable IaCristiana muhammad MD Unavailable Unavailable IaCristiana muhammad MD Unavailable Unavailable IaCristiana muhammad MD Unavailable Unavailable IannCristiana goetz MD Unavailable Unavailable IaCristiana muhammad MD Unavailable Unavailable IaCristiana muhammad MD Unavailable Unavailable IaCristiana muhammad MD Unavailable Unavailable IaCristiana muhammad MD Unavailable Unavailable IannCristiana goetz MD Unavailable Unavailable IaCristiana muhammad MD Unavailable Unavailable IannCristiana goetz MD Unavailable Unavailable IaCristiana muhammad MD Unavailable Unavailable IaCristiana muhammad MD Unavailable Unavailable IaCristiana muhammad MD Unavailable Unavailable IaCristiana muhammad MD Unavailable Unavailable IannCristiana goetz MD Unavailable Unavailable IannCristiana goetz MD Unavailable Unavailable IannCristiana goetz MD Unavailable Unavailable RING, K TED PA Unavailable Unavailable RING, K TED PA Unavailable Unavailable RING, K TED PA Unavailable Unavailable RING, K TED PA Unavailable Unavailable RING, K TED PA Unavailable Unavailable RING, K TED PA Unavailable Unavailable RING, K TED PA Unavailable Unavailable RING, K TED PA Unavailable Unavailable RING, K TED PA Unavailable Unavailable RING, K TED PA Unavailable Unavailable RING, K TED PA Unavailable Unavailable RING, K TED PA Unavailable Unavailable RING, K TED PA Unavailable Unavailable RING, K TED PA Unavailable Unavailable RING, K TED PA Unavailable Unavailable RING, K TED PA Unavailable Unavailable RING, K TED PA Unavailable Unavailable RING, K TED PA Unavailable Unavailable RING, K TED PA Unavailable Unavailable RING, K TED PA Unavailable Unavailable JUAN PABLO, CHRISTIAN PA Unavailable Unavailable JUAN PABLO, CHRISTIAN PA Unavailable Unavailable JUAN PABLO, CHRISTIAN PA Unavailable Unavailable JUAN PABLO, CHRISTIAN PA Unavailable Unavailable JUAN PABLO, CHRISTIAN PA Unavailable Unavailable JUAN PABLO, CHRISTIAN PA Unavailable Unavailable JUAN PABLO, CHRISTIAN PA Unavailable Unavailable JUAN PABLO, CHRISTIAN PA Unavailable Unavailable JUAN PABLO, CHRISTIAN PA Unavailable Unavailable JUAN PABLO, CHRISTIAN PA Unavailable Unavailable JUAN PABLO, CHRISTIAN PA Unavailable Unavailable JUAN PABLO, CHRISTIAN PA Unavailable Unavailable JUAN PABLO, CHRISTIAN PA Unavailable Unavailable JUAN PABLO, CHRISTIAN PA Unavailable Unavailable JUAN PABLO, CHRISTIAN PA Unavailable Unavailable JUAN PABLO, CHRISTIAN PA Unavailable Unavailable JUAN PABLO, CHRISTIAN PA Unavailable Unavailable JUAN PABLO, CHRISTIAN PA Unavailable Unavailable JUAN PABLO, CHRISTIAN PA Unavailable Unavailable JUAN PABLO, CHRISTIAN PA Unavailable Unavailable JUAN PABLO, CHRISTIAN PA Unavailable Unavailable JUAN PABLO, CHRISTIAN PA Unavailable Unavailable JUAN PABLO, CHRISTIAN PA Unavailable Unavailable JUAN PABLO, CHRISTIAN PA Unavailable Unavailable JUAN PABLO, CHRISTIAN PA Unavailable Unavailable JUAN PABLO, CHRISTIAN PA Unavailable Unavailable JUAN PABLO, CHRISTIAN PA Unavailable Unavailable JUAN PABLO, CHRISTIAN PA Unavailable Unavailable JUAN PABLO, CHRISTIAN PA Unavailable Unavailable JUAN PABLO, CHRISTIAN PA Unavailable Unavailable JUAN PABLO, CHRISTIAN PA Unavailable Unavailable JUAN PABLO, CHRISTIAN PA Unavailable Unavailable JUAN PABLO, CHRISTIAN PA Unavailable Unavailable JUAN PABLO, CHRISTIAN PA Unavailable Unavailable JUAN PABLO, CHRISTIAN PA Unavailable Unavailable JUAN PABLO, CHRISTIAN PA Unavailable Unavailable JUAN PABLO, CHRISTIAN PA Unavailable Unavailable JUAN PABLO, CHRISTIAN PA Unavailable Unavailable Deshaun Nichole MD Unavailable Unavailable DayanaraDeshaun MD Unavailable Unavailable DayanaraDeshaun MD Unavailable Unavailable DayanaraDeshaun MD Unavailable Unavailable DayanaraDeshaun MD Unavailable Unavailable DayanaraDeshaun MD Unavailable Unavailable DayanaraDeshaun MD Unavailable Unavailable DayanaraDeshaun MD Unavailable Unavailable Deshaun Nichole MD Unavailable Unavailable Deshaun Nichole MD Unavailable Unavailable Deshaun Nichole MD Unavailable Unavailable Deshaun Nichole MD Unavailable Unavailable Deshaun Nichole MD Unavailable Unavailable Deshaun Nichole MD Unavailable Unavailable Deshaun Nichole MD Unavailable Unavailable DayanaraDeshaun MD Unavailable Unavailable DayanaraDeshaun MD Unavailable Unavailable DayanaraDeshaun MD Unavailable Unavailable DayanaraDeshaun MD Unavailable Unavailable DayanaraDeshaun MD Unavailable Unavailable DayanaraDeshaun MD Unavailable Unavailable DayanaraDeshaun MD Unavailable Unavailable DayanaraDeshaun MD Unavailable Unavailable Deshaun Nichole MD Unavailable Unavailable Deshaun Nichole MD Unavailable Unavailable Deshaun Nichole MD Unavailable Unavailable Deshaun Nichole MD Unavailable Unavailable Deshaun Nichole MD Unavailable Unavailable Deshaun Nichole MD Unavailable Unavailable Deshaun Nichole MD Unavailable Unavailable Deshaun Nichole MD Unavailable Unavailable Deshaun Nichole MD Unavailable Unavailable DayanaraDeshaun MD Unavailable Unavailable DayanaraDeshaun MD Unavailable Unavailable Dayanara, Deshaun Tilley MD Unavailable Unavailable Dayanara, Deshaun Tilley MD Unavailable Unavailable Dayanara, Deshaun Tilley MD Unavailable Unavailable Dayanara, Deshaun Tilley MD Unavailable Unavailable Dayanara, Deshaun Tilley MD Unavailable Unavailable Dayanara, Deshaun Tilley MD Unavailable Unavailable Dayanara, Deshaun Tilley MD Unavailable Unavailable Dayanara, Deshaun Tilley MD Unavailable Unavailable Dayanara, Deshaun Tilley MD Unavailable Unavailable Dayanara, Deshaun Tilley MD Unavailable Unavailable Dayanara, Deshaun Tilley MD Unavailable Unavailable Dayanara, Deshaun Tilley MD Unavailable Unavailable Dayanara, Deshaun Tilley MD Unavailable Unavailable Dayanara, Deshaun Tilley MD Unavailable Unavailable Dayanara, Deshaun Tilley MD Unavailable Unavailable NRI, [id number] Unavailable Unavailable FERRY, David COULTER [id number] Unavailable Unavailable Eastman, Heena Valentina PA Unavailable Unavailable Eastman, Heena Valentina PA Unavailable Unavailable Eastman, Heena Valentina PA Unavailable Unavailable Eastman, Heena Valentina PA Unavailable Unavailable Eastman, Heena Valentina PA Unavailable Unavailable Eastman, Heena Valentina PA Unavailable Unavailable Eastman, Heena Valentina PA Unavailable Unavailable Eastman, Heena Valentina PA Unavailable Unavailable Eastman, Heena Valentina PA Unavailable Unavailable Eastman, Heena Valentina PA Unavailable Unavailable Re-disclosure Warning The records that you are about to access may contain information from federally-assisted alcohol or drug abuse programs. If such information is present, then the following federally mandated warning applies: This information has been disclosed to you from records protected by federal confidentiality rules (42 CFR part 2). The federal rules prohibit you from making any further disclosure of this information unless further disclosure is expressly permitted by the written consent of the person to whom it pertains or as otherwise permitted by 42 CFR part 2. A general authorization for the release of medical or other information is NOT sufficient for this purpose. The Federal rules restrict any use of the information to criminally investigate or prosecute any alcohol or drug abuse patient.The records that you are about to access may contain highly sensitive health information, the redisclosure of which is protected by Article 27-F of the [facility] Public Health law. If you continue you may have access to information: Regarding HIV / AIDS; Provided by facilities licensed or operated by the [facility] Office of Mental Health; or Provided by the [facility] Office for People With Developmental Disabilities. If such information is present, then the following [facility] mandated warning applies: This information has been disclosed to you from confidential records which are protected by state law. State law prohibits you from making any further disclosure of this information without the specific written consent of the person to whom it pertains, or as otherwise permitted by law. Any unauthorized further disclosure in violation of state law may result in a fine or long term sentence or both. A general authorization for the release of medical or other information is NOT sufficient authorization for further disc losure. Allergies and Adverse Reactions Type Description Substance Reaction Status Data Source(s ) Drug allergy Cefdinir cefdinir Hives Active eCW1 ([facility]) Drug allergy Metronidazole Metronidazole Unknown Active eCW1 ( [facility]) Drug allergy Clindamycin HCl Clindamycin Itchy Active eCW1 ( [facility]) Gardasil Gardasil Gardasil Anaphylaxis Active eCW1 ([facility]) clams clams clams Anaphylaxis Active eCW1 ([facility]) shrimp shrimp shrimp Unknown Active eCW1 ([facility]) gabapentin gabapentin gabapentin 300 MG Oral Capsule moodiness Activ e eCW1 ([facility]) Gardasil Gardasil Gardasil Anaphylaxis Active eCW1 ([facility]) clams clams clams Anaphylaxis Active eCW1 [facility] [facility] shrimp shrimp shrimp Unknown Active eCW1 ([facility]) gabapentin gabapentin gabapentin 50 MG/ML Oral Solution moodiness Ac tive eCW1 ([facility]) Drug allergy Flagyl Metronidazole Panic Attack Active eCW1 ( [facility]) Drug allergy Flagyl Metronidazole Panic Attack Active eCW1 ( [facility]) Gardasil Gardasil Gardasil Anaphylaxis Active eCW1 ([facility]) clams clams clams Anaphylaxis Active eCW1 ([facility]) shrimp shrimp shrimp Unknown Active eCW1 ([facility]) Family History Family Member Name Family Member Gender Family Member Status Date o f Status Description Data Source(s) Unknown Unknown Problem MEDENT ([facility]) Encounters Encounter Providers Location Date Indications Data Source(s ) Unknown [address] [facility] [facility] [address] 08/30/2020 12:00:00 AM EST [facility]CW1 ([facility]) Unknown [address] [facility] [address] 08/27/2020 12:00:00 AM EST eCW1 ([facility]) Unknown [address] [facility] [address] 08/27/2020 12:00:00 AM EST eCW1 ([facility]) Outpatient [address] [facility] [address] 08/24/2020 12:00:00 AM EST eCW1 ([facility]) Outpatient Attender: GOLDEN Beeerrer: Jian dwyer MD 08/17/2020 12:00:00 AM EST Presence of cardiac pacemaker [facility] Presence of cardiac pacemaker Unknown [address] [facility] [place] [address] 08/09/2020 12:00:00 AM EST eCW1 ([facility]) Outpatient Attender: CHRISTIAN Montalvoa ry 07/14/2020 09:00:00 AM EST MEDENT ([facility]) Outpatient Attender: YFN HAWKINS [id number] 07/07/2020 12: 00:00 AM EST [facility] Unknown [address] [facility] [address] 06/15/2020 12:00:00 AM EST [facility]1 [facility] Unknown [address] [facility] [address] 05/26/2020 12:00:00 AM EDT [facility]CW1 ([facility] Outpatient Attender: Valentina Montalvo ysabel 05/25/2020 02:45:00 PM EDT MEDENT ([facility]) Outpatient Attender: TED Prado Primary 04/18/2020 12:00:00 PM EDT MEDENT ([facility]) Outpatient Attender: ESCOBAR Georgeserrer: Jian tim MD 03/16/2020 12:00:00 AM EDT [facility] Outpatient Referrer: Jian Gomez MD 03/16/2020 12:00 :00 AM EDT [facility] Outpatient [address] [facility] [address] 02/26/2020 12:00:00 AM EDT eCW1 ([facility]) Unknown [address] [facility] [place] [address] 02/26/2020 12:00:00 AM EDT eCW1 ([facility]) Unknown [address] [facility] [address] 02/20/2020 12:00:00 AM EDT eCW1 ([facility]) Outpatient Attender: Cynthia Villalobos NPReferrer: Cristiana Viramontes 02/18/2020 12:57:29 PM EDT [facility] Recurring Patient Referrer: Cristiana Parada MD 02/18/2020 10 :45:37 AM EDT [facility] Outpatient [address] [facility] [address] 02/17/2020 12:00:00 AM EDT eCW1 ([facility]) Outpatient 02/04/2020 12:00:00 AM EDT [facility] Outpatient Attender: ESCOBAR JONES DO 02/04/2020 12:00:0 0 AM EDT [facility] Recurring Patient Referrer: Cristiana Parada MD 01/26/2020 04 :06:46 PM EDT [facility] Recurring Patient Referrer: Cristiana Parada MD 01/26/2020 04 :06:20 PM EDT [facility] Outpatient Attender: TED Brothers 01/26/2020 02:00:00 PM EDT MEDENT ([facility]) Outpatient Attender: Cristiana Parada MDReferrer: Jian gonzales MD [id number] 01/20/2020 12:00:00 AM EDT Sacrococcygeal disorders, not elsewhere classified [facility] Sacrococcygeal disorders, not elsewhere classified [place] [address] [facility] [address] 01/13/2020 12:00:00 AM EDT eCW1 ([facility]) Unknown [address] [facility] [address] 01/05/2020 12:00:00 AM EDT eCW1 ([facility]) Unknown [address] [facility] [address] 01/02/2020 12:00:00 AM EDT eCW1 ([facility]) Outpatient 12/09/2019 12:00:00 AM T [facility] Outpatient Attender: ESCOBAR Gong: Jian tim MD 12/09/2019 12:00:00 AM [facility] [place] [address] [facility] [address] 12/03/2019 12:00:00 AM EDT eCW1 ([facility]) [facility] [place] [address] [facility] [address] 11/26/2019 12:00:00 AM EDT eCW1 ([facility]) [facility] [place] [address] [facility] [address] 11/20/2019 12:00:00 AM EDT eCW1 ([facility]) Outpatient Referrer: Jian Gomez MD 11/17/2019 09:45 :00 AM EDT [facility] Outpatient Referrer: Jian Gomez MD 11/17/2019 09:44 :00 AM EDT [facility] Outpatient Referrer: Jian Gomez MD 11/17/2019 09:41 :00 AM EDT [facility] Outpatient Referrer: Jian Gomez MD 11/14/2019 11:56 :00 AM EDT [facility] Outpatient Referrer: Jian Gomez MD 11/14/2019 08:25 :00 AM EDT [facility] Outpatient Referrer: Jian Gomez MD 11/14/2019 08:25 :00 AM EDT [facility] Outpatient Referrer: Jian Gomez MD 11/12/2019 04:02 :00 PM EDT [facility] Outpatient Referrer: [id number] NRI 11/12/2019 01:12:00 PM EDT [facility] Outpatient Referrer: [id number] NRI 11/12/2019 01:12:00 PM EDT [facility] Radiology Imaging [facility] [place] [address] [facility] [address] 11/06/2019 12:00:00 AM EDT eCW1 ([facility]) [facility] [place] [address] [facility] [address] 10/13/2019 12:00:00 AM EDT eCW1 ([facility]) [facility] [place] [address] [facility] [address] 10/08/2019 12:00:00 AM EST eCW1 ([facility]) Outpatient Attender: ESCOBAR JONES DO 10/06/2019 12:00:0 0 AM [facility] [place] [address] [facility] [address] 09/16/2019 12:00:00 AM EST eCW1 ([facility]) Outpatient Attender: Jarek Nichole MD 09/04/2019 12:00:[address] [facility] Outpatient Attender: Valentina grady 08/20/2019 11:00:00 AM EST MEDENT ([facility]) Outpatient Attender: Jarek Nichole MD 07/14/2019 12:00:[address] [facility] Medications Medication Brand Name Start Date Product Form Dose Route Admi nistrative Instructions Pharmacy Instructions Status Indications Reaction Description Data Source(s) 325 mg (65 mg iron) 09/01/2020 12:00:00 AM EST tablet 60 TAKE ONE TABLET BY MOUTH TWICE A DAY TAKE ONE TABLET BY MOUTH TWICE A DAY SOLD: 09/01/2020 [facility] 25 mg 08/10/2020 12:00:00 AM EST tablet extended release 24 hr 30 TAKE ONE TABLET BY MOUTH EVERY DAY TAKE ONE TABLET BY MOUTH EVERY DAY SOLD: 08/11/2020 [facility] 40 mg 08/09/2020 12:00:00 AM EST capsule,delayed release (DR/EC) 90 TAKE ONE CAPSULE BY MOUTH EVERY DAY TAKE ONE CAPSULE BY MOUTH EVERY DAY SOLD: 08/11/2020 [facility] Levofloxacin 500 MG Oral Tablet Levofloxacin 07/17/2020 12:00:[address] ORAL active MEDENT ([facility]) 500 mg 07/17/2020 12:00:00 AM EST tablet 5 TAKE ONE TABLET BY MOUTH ONCE DAILY TAKE ONE TABLET BY MOUTH ONCE DAILY SOLD: 07/17/2020 [facility] NITROFURANTOIN, MACROCRYSTALS 25 MG / Ni trofurantoin, Monohydrate 75 MG Oral Capsule Nitrofurantoin Monohyd Macro 07/14/2020 12:00:00 AM EST ORAL completed MEDENT ([facility]) Fluconazole 150 MG Oral Tablet [Diflucan] Diflucan 07/14/2020 1 2:00:00 AM EST ORAL completed MEDENT ([facility]) 150 mg 07/14/2020 12:00:00 AM EST tablet 2 TAKE 1 TABLET BY MOUTH MOUTH,MAY REPEAT IN 3-5 DAYS IF NEEDED TAKE 1 TABLET BY MOUTH MOUTH,MAY REPEAT IN 3-5 DAYS IF NEEDED SOLD: 07/14/2020 [facility] 100 mg 07/14/2020 12:00:00 AM EST capsule 10 TAKE ONE CAPSULE BY MOUTH TWICE A DAY FOR 5 DAYS TAKE ONE CAPSULE BY MOUTH TWICE A DAY FOR 5 DAYS SOLD: 07/14/2020 [facility] 20 mg 06/17/2020 12:00:00 AM EST capsule 30 TAKE ONE CAPSULE BY MOUTH EVERY MORNING WITH 10MG CAP. TAKE ONE CAPSULE BY MOUTH EVERY MORNING WITH 10MG CAP. SOLD: 08/16/2020 [facility] 20 mg 06/17/2020 12:00:00 AM EST capsule 30 TAKE ONE CAPSULE BY MOUTH EVERY MORNING WITH 10MG CAP. TAKE ONE CAPSULE BY MOUTH EVERY MORNING WITH 10MG CAP. SOLD: 06/17/2020 [facility] 20 mg 06/17/2020 12:00:00 AM EST capsule 30 TAKE ONE CAPSULE BY MOUTH EVERY MORNING WITH 10MG CAP. TAKE ONE CAPSULE BY MOUTH EVERY MORNING WITH 10MG CAP. SOLD: 07/17/2020 [facility] 10 mg 05/27/2020 12:00:00 AM EDT capsule 30 TAKE ONE CAPSULE BY MOUTH IN THE MORNING ONCE A DAY WITH A 20MG CAPSULE TAKE ONE CAPSULE BY MOUTH IN THE MORNING ONCE A DAY WITH A 20MG CAPSULE SOLD: 05/27/2020 [facility] 10 mg 05/27/2020 12:00:00 AM EDT capsule 30 TAKE ONE CAPSULE BY MOUTH IN THE MORNING ONCE A DAY WITH A 20MG CAPSULE TAKE ONE CAPSULE BY MOUTH IN THE MORNING ONCE A DAY WITH A 20MG CAPSULE SOLD: 08/21/2020 [facility] 10 mg 05/27/2020 12:00:00 AM EDT capsule 30 TAKE ONE CAPSULE BY MOUTH IN THE MORNING ONCE A DAY WITH A 20MG CAPSULE TAKE ONE CAPSULE BY MOUTH IN THE MORNING ONCE A DAY WITH A 20MG CAPSULE SOLD: 07/22/2020 [facility] 10 mg 05/27/2020 12:00:00 AM EDT capsule 30 TAKE ONE CAPSULE BY MOUTH IN THE MORNING ONCE A DAY WITH A 20MG CAPSULE TAKE ONE CAPSULE BY MOUTH IN THE MORNING ONCE A DAY WITH A 20MG CAPSULE SOLD: 06/23/2020 [facility] Lidocaine HCL Urethral/Mucosal 05/25/2020 12:00:00 AM EDT active MEDENT ([facility]) Phenazopyridine hydrochloride 200 MG Oral Tablet [Pyridium] Pyridium 04/18/2020 12:00:00 AM EDT ORAL completed MEDENT ([facility]) NITROFURANTOIN, MACROCRYSTALS 25 MG / Ni trofurantoin, Monohydrate 75 MG Oral Capsule [Macrobid] Macrobid 04/18/2020 12:00:00 AM EDT ORAL completed MEDENT ([facility]) 100 mg 04/18/2020 12:00:00 AM EDT capsule 10 TAKE ONE CAPSULE BY MOUTH EVERY 12 HOURS FOR 5 DAYS TAKE ONE CAPSULE BY MOUTH EVERY 12 HOURS FOR 5 DAYS SO LD: 04/18/2020 [facility] 1-0.05 % 03/29/2020 12:00:00 AM EDT cream 30 APPLY TOPICALLY TO GLUTEAL AREA TWO TIMES A DAY APPLY TOPICALLY TO GLUTEAL AREA TWO TIMES A DAY SOLD: 03/31/2020 [facility] 0.3 mg/0.3 mL 03/11/2020 12:00:00 AM EDT auto-injector 2 INJECT DIRECTED INJECT DIRECTED SOLD: 07/17/2020 [facility] 0.3 mg/0.3 mL 03/11/2020 12:00:00 AM EDT auto-injector 2 INJECT DIRECTED INJECT DIRECTED SOLD: 06/17/2020 [facility] 0.3 mg/0.3 mL 03/11/2020 12:00:00 AM EDT auto-injector 2 INJECT DIRECTED INJECT DIRECTED SOLD: 05/18/2020 [facility] 0.3 mg/0.3 mL 03/11/2020 12:00:00 AM EDT auto-injector 2 INJECT DIRECTED INJECT DIRECTED SOLD: 04/17/2020 [facility] 0.3 mg/0.3 mL 03/11/2020 12:00:00 AM EDT auto-injector 2 INJECT DIRECTED INJECT DIRECTED SOLD: 03/14/2020 [facility] 0.3 mg/0.3 mL 03/11/2020 12:00:00 AM EDT auto-injector 2 INJECT DIRECTED INJECT DIRECTED SOLD: 08/16/2020 [facility] 1-0.05 % 03/05/2020 12:00:00 AM EDT cream 30 APPLY TOPICALLY TO GLUTEAL AREA TWO TIMES A DAY APPLY TOPICALLY TO GLUTEAL AREA TWO TIMES A DAY SOLD: 03/18/2020 [facility] 1-0.05 % 03/05/2020 12:00:00 AM EDT cream 30 APPLY TOPICALLY TO GLUTEAL AREA TWO TIMES A DAY APPLY TOPICALLY TO GLUTEAL AREA TWO TIMES A DAY SOLD: 03/05/2020 [facility] Ciprofloxacin 3 MG/ML / Dexamethasone 1 MG/ML Otic Suspension [Ciprodex] Ciprodex 0.3-0.1 % Ciprodex 0.3-0.1 % 02/26/2020 12:00:00 AM EDT 4.0 {drops_into_affected_ear} active Ciprod ex 0.3-0.1 % eCW1 ([facility]) 0.3-0.1 % 02/26/2020 12:00:00 AM EDT drops,suspension 7 INSTILL 4 DROPS INTO THE AFFECTED EAR TWO TIMES A DAY FOR 7 DAYS INSTILL 4 DROPS INTO THE AFFECTED EAR TWO TIMES A DAY FOR 7 DAYS SOLD: 02/26/2020 [facility] Ciprofloxacin 3 MG/ML / Dexamethasone 1 MG/ML Otic Suspension [Ciprodex] Ciprodex 0.3-0.1 % Ciprodex 0.3-0.1 % 02/26/2020 12:00:00 AM EDT 4.0 {drops_into_affected_ear} active Ciprod ex 0.3-0.1 % eCW1 ([facility]) Ciprofloxacin 3 MG/ML / Dexamethasone 1 MG/ML Otic Suspension [Ciprodex] Ciprodex 0.3-0.1 % Ciprodex 0.3-0.1 % 02/26/2020 12:00:00 AM EDT 4.0 {drops_into_affected_ear} active Ciprod ex 0.3-0.1 % eCW1 ([facility]) Ciprofloxacin 3 MG/ML / Dexamethasone 1 MG/ML Otic Suspension [Ciprodex] Ciprodex 0.3-0.1 % Ciprodex 0.3-0.1 % 02/26/2020 12:00:00 AM EDT 4.0 {drops_into_affected_ear} active Ciprod ex 0.3-0.1 % eCW1 ([facility]) Ciprofloxacin 3 MG/ML / Dexamethasone 1 MG/ML Otic Suspension [Ciprodex] Ciprodex 0.3-0.1 % Ciprodex 0.3-0.1 % 02/26/2020 12:00:00 AM EDT 4.0 {drops_into_affected_ear} active Ciprod ex 0.3-0.1 % eCW1 ([facility]) Ciprofloxacin 3 MG/ML / Dexamethasone 1 MG/ML Otic Suspension [Ciprodex] Ciprodex 0.3-0.1 % Ciprodex 0.3-0.1 % 02/26/2020 12:00:00 AM EDT 4.0 {drops_into_affected_ear} active Ciprod ex 0.3-0.1 % eCW1 ([facility]) Ciprofloxacin 3 MG/ML / Dexamethasone 1 MG/ML Otic Suspension [Ciprodex] Ciprodex 0.3-0.1 % Ciprodex 0.3-0.1 % 02/26/2020 12:00:00 AM EDT 4.0 {drops_into_affected_ear} active Ciprod ex 0.3-0.1 % eCW1 ([facility]) Ciprofloxacin 3 MG/ML / Dexamethasone 1 MG/ML Otic Suspension [Ciprodex] Ciprodex 0.3-0.1 % Ciprodex 0.3-0.1 % 02/26/2020 12:00:00 AM EDT 4.0 {drops_into_affected_ear} active Ciprod ex 0.3-0.1 % eCW1 ([facility]) Ciprofloxacin 3 MG/ML / Dexamethasone 1 MG/ML Otic Suspension [Ciprodex] Ciprodex 0.3-0.1 % Ciprodex 0.3-0.1 % 02/26/2020 12:00:00 AM EDT 4.0 {drops_into_affected_ear} active Ciprod ex 0.3-0.1 % eCW1 ([facility]) 250 mg 02/20/2020 12:00:00 AM EDT tablet 6 TAKE TWO TABLETS BY MOUTH AT ONCE ON THE FIRST DAY THEN TAKE ONE DAILY THEREAFTER TAKE TWO TABLETS BY MOUTH AT ONCE ON THE FIRST DAY THEN TAKE ONE DAILY THEREAFTER SOLD: 02/20/2020 [facility] Azithromycin 250 MG Oral Tablet Azithromycin 250 MG 02/20/2020 1 2:00:00 AM EDT suspended Azithromycin 2 50 MG eCW1 ([facility]) Azithromycin 250 MG Oral Tablet Azithromycin 250 MG 02/20/2020 1 2:00:00 AM EDT suspended Azithromycin 2 50 MG eCW1 ([facility]) Azithromycin 250 MG Oral Tablet Azithromycin 250 MG 02/20/2020 1 2:00:00 AM EDT suspended Azithromycin 2 50 MG eCW1 ([facility]) Azithromycin 250 MG Oral Tablet Azithromycin 250 MG 02/20/2020 1 2:00:00 AM EDT suspended Azithromycin 2 50 MG eCW1 ([facility]) Azithromycin 250 MG Oral Tablet Azithromycin 250 MG 02/20/2020 1 2:00:00 AM EDT suspended Azithromycin 2 50 MG eCW1 ([facility]) Azithromycin 250 MG Oral Tablet Azithromycin 250 MG 02/20/2020 1 2:00:00 AM EDT suspended Azithromycin 2 50 MG eCW1 ([facility]) Azithromycin 250 MG Oral Tablet Azithromycin 250 MG 02/20/2020 1 2:00:00 AM EDT active Azithromycin 250 MG eCW1 ([facility]) Azithromycin 250 MG Oral Tablet Azithromycin 250 MG 02/20/2020 1 2:00:00 AM EDT suspended Azithromycin 2 50 MG eCW1 ([facility]) Azithromycin 250 MG Oral Tablet Azithromycin 250 MG 02/20/2020 1 2:00:00 AM EDT suspended Azithromycin 2 50 MG eCW1 ([facility]) Azithromycin 250 MG Oral Tablet Azithromycin 250 MG 02/20/2020 1 2:00:00 AM EDT suspended Azithromycin 2 50 MG eCW1 ([facility]) 25 mg 02/17/2020 12:00:00 AM EDT tablet extended release 24 hr 30 TAKE ONE TABLET BY MOUTH EVERY DAY TAKE ONE TABLET BY MOUTH EVERY DAY SOLD: 03/18/2020 [facility] 24 HR mirabegron 25 MG Extended Release Oral Tablet [M yrbetriq] Myrbetriq 25 MG Myrbetriq 25 MG 02/17/2020 12:00:00 AM EDT 1.0 {tablet} active Myrbetriq 25 MG eCW1 ([facility]) 24 HR mirabegron 25 MG Extended Release Oral Tablet [M yrbetriq] Myrbetriq 25 MG Myrbetriq 25 MG 02/17/2020 12:00:00 AM EDT 1.0 {tablet} active Myrbetriq 25 MG eCW1 ([facility]) 24 HR mirabegron 25 MG Extended Release Oral Tablet [M yrbetriq] Myrbetriq 25 MG Myrbetriq 25 MG 02/17/2020 12:00:00 AM EDT 1.0 {tablet} active Myrbetriq 25 MG eCW1 ([facility]) 24 HR mirabegron 25 MG Extended Release Oral Tablet [M yrbetriq] Myrbetriq 25 MG Myrbetriq 25 MG 02/17/2020 12:00:00 AM EDT 1.0 {tablet} active Myrbetriq 25 MG eCW1 ([facility]) 24 HR mirabegron 25 MG Extended Release Oral Tablet [M yrbetriq] Myrbetriq 25 MG Myrbetriq 25 MG 02/17/2020 12:00:00 AM EDT 1.0 {tablet} active Myrbetriq 25 MG eCW1 ([facility]) 25 mg 02/17/2020 12:00:00 AM EDT tablet extended release 24 hr 30 TAKE ONE TABLET BY MOUTH EVERY DAY TAKE ONE TABLET BY MOUTH EVERY DAY SOLD: 06/15/2020 [facility] 25 mg 02/17/2020 12:00:00 AM EDT tablet extended release 24 hr 30 TAKE ONE TABLET BY MOUTH EVERY DAY TAKE ONE TABLET BY MOUTH EVERY DAY SOLD: 02/17/2020 [facility] 24 HR mirabegron 25 MG Extended Release Oral Tablet [M yrbetriq] Myrbetriq 25 MG Myrbetriq 25 MG 02/17/2020 12:00:00 AM EDT 1.0 {tablet} active Myrbetriq 25 MG eCW1 ([facility]) 25 mg 02/17/2020 12:00:00 AM EDT tablet extended release 24 hr 30 TAKE ONE TABLET BY MOUTH EVERY DAY TAKE ONE TABLET BY MOUTH EVERY DAY SOLD: 04/17/2020 [facility] 25 mg 02/17/2020 12:00:00 AM EDT tablet extended release 24 hr 30 TAKE ONE TABLET BY MOUTH EVERY DAY TAKE ONE TABLET BY MOUTH EVERY DAY SOLD: 05/18/2020 [facility] 24 HR mirabegron 25 MG Extended Release Oral Tablet [M yrbetriq] Myrbetriq 25 MG Myrbetriq 25 MG 02/17/2020 12:00:00 AM EDT 1.0 {tablet} active Myrbetriq 25 MG eCW1 ([facility]) 25 mg 02/17/2020 12:00:00 AM EDT tablet extended release 24 hr 30 TAKE ONE TABLET BY MOUTH EVERY DAY TAKE ONE TABLET BY MOUTH EVERY DAY SOLD: 07/14/2020 [facility] 40 mg 02/14/2020 12:00:00 AM EDT capsule,delayed release (DR/EC) 90 TAKE ONE CAPSULE BY MOUTH EVERY DAY TAKE ONE CAPSULE BY MOUTH EVERY DAY SOLD: 02/14/2020 [facility] 40 mg 02/14/2020 12:00:00 AM EDT capsule,delayed release (DR/EC) 90 TAKE ONE CAPSULE BY MOUTH EVERY DAY TAKE ONE CAPSULE BY MOUTH EVERY DAY SOLD: 05/13/2020 [facility] 90 mcg/actuation 01/27/2020 12:00:00 AM EDT HFA aerosol inha ler 8 INHALE 2 PUFFS BY MOUTH EVERY 4 TO 6 HOURS NEEDED INHALE 2 PUFFS BY MOUTH EVERY 4 TO 6 HOURS NEEDED SOLD: 02/14/2020 [facility] 90 mcg/actuation 01/27/2020 12:00:00 AM EDT HFA aerosol inha ler 8 INHALE 2 PUFFS BY MOUTH EVERY 4 TO 6 HOURS NEEDED INHALE 2 PUFFS BY MOUTH EVERY 4 TO 6 HOURS NEEDED SOLD: 03/14/2020 [facility] 90 mcg/actuation 01/27/2020 12:00:00 AM EDT HFA aerosol inha ler 8 INHALE 2 PUFFS BY MOUTH EVERY 4 TO 6 HOURS NEEDED INHALE 2 PUFFS BY MOUTH EVERY 4 TO 6 HOURS NEEDED SOLD: 02/29/2020 [facility] 90 mcg/actuation 01/27/2020 12:00:00 AM EDT HFA aerosol inha ler 8 INHALE 2 PUFFS BY MOUTH EVERY 4 TO 6 HOURS NEEDED INHALE 2 PUFFS BY MOUTH EVERY 4 TO 6 HOURS NEEDED SOLD: 02/01/2020 [facility] Betamethasone 0.5 MG/ML / Clotrimazole 10 MG/ML Topica l Cream Clotrimazole/Betamethasone Dipropionate 01/26/2020 12:00:00 AM EDT completed MEDENT ([facility]) 1-0.05 % 01/26/2020 12:00:00 AM EDT cream 30 APPLY TO AFFECTED AREA EVERY 12 HOURS UNTIL RESOLUTION APPLY TO AFFECTED AREA EVERY 12 HOURS UNTIL RESOLUTION SOLD: 01/26/2020 [facility] 0.75 % 01/07/2020 12:00:00 AM EDT gel 70 INSERT 1 APPLICATOR-FULL VAGINALLY TWO TIMES A DAY FOR 7 DAYS INSERT 1 APPLICATOR-FULL VAGINALLY TWO T IMES A DAY FOR 7 DAYS SOLD: 01/08/2020 [facility] 0.75 % 01/07/2020 12:00:00 AM EDT gel 70 INSERT 1 APPLICATOR-FULL VAGINALLY TWO TIMES A DAY FOR 7 DAYS INSERT 1 APPLICATOR-FULL VAGINALLY TWO T IMES A DAY FOR 7 DAYS SOLD: 06/23/2020 [facility] 0.75 % 01/07/2020 12:00:00 AM EDT gel 70 INSERT 1 APPLICATOR-FULL VAGINALLY TWO TIMES A DAY FOR 7 DAYS INSERT 1 APPLICATOR-FULL VAGINALLY TWO T IMES A DAY FOR 7 DAYS SOLD: 03/26/2020 [facility] 150 mg 01/07/2020 12:00:00 AM EDT tablet 1 TAKE ONE TABLET BY MOUTH EVERY DAY TAKE ONE TABLET BY MOUTH EVERY DAY SOLD: 05/20/2020 [facility] 150 mg 01/07/2020 12:00:00 AM EDT tablet 1 TAKE ONE TABLET BY MOUTH EVERY DAY TAKE ONE TABLET BY MOUTH EVERY DAY SOLD: 01/08/2020 [facility] Fluconazole 150 MG Oral Tablet [Diflucan] Diflucan 150 MG Di flucan 150 MG 01/05/2020 12:00:00 AM EDT 1.0 {tablet} active Diflucan 150 MG eCW1 ([facility]) Fluconazole 150 MG Oral Tablet [Diflucan] Diflucan 150 MG Di flucan 150 MG 01/05/2020 12:00:00 AM EDT 1.0 {tablet} active Diflucan 150 MG eCW1 ([facility]) Fluconazole 150 MG Oral Tablet [Diflucan] Diflucan 150 MG Di flucan 150 MG 01/05/2020 12:00:00 AM EDT 1.0 {tablet} active Diflucan 150 MG eCW1 ([facility]) Fluconazole 150 MG Oral Tablet [Diflucan] Diflucan 150 MG Di flucan 150 MG 01/05/2020 12:00:00 AM EDT 1.0 {tablet} active Diflucan 150 MG eCW1 ([facility]) Fluconazole 150 MG Oral Tablet [Diflucan] Diflucan 150 MG Di flucan 150 MG 01/05/2020 12:00:00 AM EDT 1.0 {tablet} active Diflucan 150 MG eCW1 ([facility]) Fluconazole 150 MG Oral Tablet [Diflucan] Diflucan 150 MG Di flucan 150 MG 01/05/2020 12:00:00 AM EDT 1.0 {tablet} active Diflucan 150 MG eCW1 ([facility]) Fluconazole 150 MG Oral Tablet [Diflucan] Diflucan 150 MG Di flucan 150 MG 01/05/2020 12:00:00 AM EDT 1.0 {tablet} active Diflucan 150 MG eCW1 ([facility]) Fluconazole 150 MG Oral Tablet [Diflucan] Diflucan 150 MG Di flucan 150 MG 01/05/2020 12:00:00 AM EDT 1.0 {tablet} active Diflucan 150 MG eCW1 ([facility]) Fluconazole 150 MG Oral Tablet [Diflucan] Diflucan 150 MG Di flucan 150 MG 01/05/2020 12:00:00 AM EDT 1.0 {tablet} active Diflucan 150 MG eCW1 ([facility]) Fluconazole 150 MG Oral Tablet [Diflucan] Diflucan 150 MG Di flucan 150 MG 01/05/2020 12:00:00 AM EDT 1.0 {tablet} active Diflucan 150 MG eCW1 ([facility]) Fluconazole 150 MG Oral Tablet [Diflucan] Diflucan 150 MG Di flucan 150 MG 01/05/2020 12:00:00 AM EDT 1.0 {tablet} active Diflucan 150 MG eCW1 ([facility]) Fluconazole 150 MG Oral Tablet [Diflucan] Diflucan 150 MG Di flucan 150 MG 01/05/2020 12:00:00 AM EDT 1.0 {tablet} active Diflucan 150 MG eCW1 ([facility]) Fluconazole 150 MG Oral Tablet [Diflucan] Diflucan 150 MG Di flucan 150 MG 01/05/2020 12:00:00 AM EDT 1.0 {tablet} active Diflucan 150 MG eCW1 ([facility]) Fluconazole 150 MG Oral Tablet [Diflucan] Diflucan 150 MG Di flucan 150 MG 01/05/2020 12:00:00 AM EDT 1.0 {tablet} active Diflucan 150 MG eCW1 ([facility]) 150 mg 01/03/2020 12:00:00 AM EDT tablet 3 TAKE ONE TABLET BY MOUTH ONCE TIME PER WEEK TAKE ONE TABLET BY MOUTH ONCE TIME PER WEEK SOLD: 01/03/2020 [facility] 150 mg 12/03/2019 12:00:00 AM EDT tablet 3 TAKE ONE TABLET BY MOUTH EVERY DAY FOR 3 DAYS TAKE ONE TABLET BY MOUTH EVERY DAY FOR 3 DAYS SOLD: 06/18/2020 [facility] 150 mg 12/03/2019 12:00:00 AM EDT tablet 3 TAKE ONE TABLET BY MOUTH EVERY DAY FOR 3 DAYS TAKE ONE TABLET BY MOUTH EVERY DAY FOR 3 DAYS SOLD: 06/23/2020 [facility] 150 mg 12/03/2019 12:00:00 AM EDT tablet 3 TAKE ONE TABLET BY MOUTH EVERY DAY FOR 3 DAYS TAKE ONE TABLET BY MOUTH EVERY DAY FOR 3 DAYS SOLD: 12/03/2019 [facility] 150 mg 12/03/2019 12:00:00 AM EDT tablet 3 TAKE ONE TABLET BY MOUTH EVERY DAY FOR 3 DAYS TAKE ONE TABLET BY MOUTH EVERY DAY FOR 3 DAYS SOLD: 03/28/2020 [facility] Wheelchair Cushion - Wheelchair Cushion - 11/21/2019 12:00:00 AM EDT active Wheelchair Cushion - eCW1 ([facility]) Wheelchair Cushion - Wheelchair Cushion - 11/21/2019 12:00:00 AM EDT active Wheelchair Cushion - eCW1 ([facility]) Wheelchair Cushion - Wheelchair Cushion - 11/21/2019 12:00:00 AM EDT active Wheelchair Cushion - eCW1 ([facility]) Wheelchair Cushion - Wheelchair Cushion - 11/21/2019 12:00:00 AM EDT active as directed eCW1 ([facility]) Wheelchair Cushion - Wheelchair Cushion - 11/21/2019 12:00:00 AM EDT active as directed eCW1 ([facility]) Wheelchair Cushion - Wheelchair Cushion - 11/21/2019 12:00:00 AM EDT active Wheelchair Cushion - eCW1 ([facility]) Wheelchair Cushion - Wheelchair Cushion - 11/21/2019 12:00:00 AM EDT active Wheelchair Cushion - eCW1 ([facility]) Wheelchair Cushion - Wheelchair Cushion - 11/21/2019 12:00:00 AM EDT active Wheelchair Cushion - eCW1 ([facility]) Wheelchair Cushion - Wheelchair Cushion - 11/21/2019 12:00:00 AM EDT active Wheelchair Cushion - eCW1 ([facility]) Wheelchair Cushion - Wheelchair Cushion - 11/21/2019 12:00:00 AM EDT active Wheelchair Cushion - eCW1 ([facility]) Wheelchair Cushion - Wheelchair Cushion - 11/21/2019 12:00:00 AM EDT active Wheelchair Cushion - eCW1 ([facility]) Wheelchair Cushion - Wheelchair Cushion - 11/21/2019 12:00:00 AM EDT active Wheelchair Cushion - eCW1 ([facility]) Wheelchair Cushion - Wheelchair Cushion - 11/21/2019 12:00:00 AM EDT active Wheelchair Cushion - eCW1 ([facility]) Wheelchair Cushion - Wheelchair Cushion - 11/21/2019 12:00:00 AM EDT active Wheelchair Cushion - eCW1 ([facility]) Wheelchair Cushion - Wheelchair Cushion - 11/21/2019 12:00:00 AM EDT active Wheelchair Cushion - eCW1 ([facility]) Wheelchair Cushion - Wheelchair Cushion - 11/21/2019 12:00:00 AM EDT active Wheelchair Cushion - eCW1 ([facility]) 180 mg 11/14/2019 12:00:00 AM EDT capsule,ext.rel 24h deg radable 90 TAKE ONE CAPSULE BY MOUTH EVERY DAY TAKE ONE CAPSULE BY MOUTH EVERY DAY SOLD: 02/14/2020 [facility] 24 HR Diltiazem Hydrochloride 180 MG Ext ended Release Oral Capsule dilTIAZem HCl ER 180 MG Oral Capsule Extended Release 24 Hour (DILACOR XR) dilTIAZem HCl ER 180 MG Oral Capsule Extended Release 24 Hour (DILACOR XR) 11/14/2019 12:00:00 AM EDT 180 mg Oral active Take 1 capsule by mouth daily [facility] 180 mg 11/14/2019 12:00:00 AM EDT capsule,ext.rel 24h deg radable 90 TAKE ONE CAPSULE BY MOUTH EVERY DAY TAKE ONE CAPSULE BY MOUTH EVERY DAY SOLD: 07/22/2020 [facility] 180 mg 11/14/2019 12:00:00 AM EDT capsule,ext.rel 24h deg radable 90 TAKE ONE CAPSULE BY MOUTH EVERY DAY TAKE ONE CAPSULE BY MOUTH EVERY DAY SOLD: 11/15/2019 [facility] 180 mg 11/14/2019 12:00:00 AM EDT capsule,ext.rel 24h deg radable 90 TAKE ONE CAPSULE BY MOUTH EVERY DAY TAKE ONE CAPSULE BY MOUTH EVERY DAY SOLD: 04/24/2020 [facility] 20 mg 11/12/2019 12:00:00 AM EDT capsule 30 TAKE ONE CAPSULE BY MOUTH EVERY MORNING WITH 10MG TAKE ONE CAPSULE BY MOUTH EVERY MORNING WITH 10MG SOLD : 11/15/2019 [facility] 20 mg 11/12/2019 12:00:00 AM EDT capsule 30 TAKE ONE CAPSULE BY MOUTH EVERY MORNING WITH 10MG TAKE ONE CAPSULE BY MOUTH EVERY MORNING WITH 10MG SOLD : 01/08/2020 [facility] 20 mg 11/12/2019 12:00:00 AM EDT capsule 30 TAKE ONE CAPSULE BY MOUTH EVERY MORNING WITH 10MG TAKE ONE CAPSULE BY MOUTH EVERY MORNING WITH 10MG SOLD : 03/10/2020 [facility] 20 mg 11/12/2019 12:00:00 AM EDT capsule 30 TAKE ONE CAPSULE BY MOUTH EVERY MORNING WITH 10MG TAKE ONE CAPSULE BY MOUTH EVERY MORNING WITH 10MG SOLD : 12/13/2019 [facility] 10 mg 11/12/2019 12:00:00 AM EDT capsule 30 TAKE ONE CAPSULE BY MOUTH EVERY MORNING WITH 20MG TAKE ONE CAPSULE BY MOUTH EVERY MORNING WITH 20MG SOLD : 03/14/2020 [facility] 10 mg 11/12/2019 12:00:00 AM EDT capsule 30 TAKE ONE CAPSULE BY MOUTH EVERY MORNING WITH 20MG TAKE ONE CAPSULE BY MOUTH EVERY MORNING WITH 20MG SOLD : 11/15/2019 [facility] 10 mg 11/12/2019 12:00:00 AM EDT capsule 30 TAKE ONE CAPSULE BY MOUTH EVERY MORNING WITH 20MG TAKE ONE CAPSULE BY MOUTH EVERY MORNING WITH 20MG SOLD : 01/15/2020 [facility] 10 mg 11/12/2019 12:00:00 AM EDT capsule 30 TAKE ONE CAPSULE BY MOUTH EVERY MORNING WITH 20MG TAKE ONE CAPSULE BY MOUTH EVERY MORNING WITH 20MG SOLD : 04/17/2020 [facility] 20 mg 11/12/2019 12:00:00 AM EDT capsule 30 TAKE ONE CAPSULE BY MOUTH EVERY MORNING WITH 10MG TAKE ONE CAPSULE BY MOUTH EVERY MORNING WITH 10MG SOLD : 04/09/2020 [facility] 20 mg 11/12/2019 12:00:00 AM EDT capsule 30 TAKE ONE CAPSULE BY MOUTH EVERY MORNING WITH 10MG TAKE ONE CAPSULE BY MOUTH EVERY MORNING WITH 10MG SOLD : 02/09/2020 [facility] 10 mg 11/12/2019 12:00:00 AM EDT capsule 30 TAKE ONE CAPSULE BY MOUTH EVERY MORNING WITH 20MG TAKE ONE CAPSULE BY MOUTH EVERY MORNING WITH 20MG SOLD : 02/14/2020 [facility] 10 mg 11/12/2019 12:00:00 AM EDT capsule 30 TAKE ONE CAPSULE BY MOUTH EVERY MORNING WITH 20MG TAKE ONE CAPSULE BY MOUTH EVERY MORNING WITH 20MG SOLD : 12/13/2019 [facility] pregabalin 25 MG Oral Capsule [Lyrica] Lyrica 25 MG Lyrica 2 5 MG 11/06/2019 12:00:00 AM EDT 1.0 {capsule} suspended Lyrica 25 MG eCW1 ([facility]) pregabalin 25 MG Oral Capsule [Lyrica] Lyrica 25 MG Lyrica 2 5 MG 11/06/2019 12:00:00 AM EDT 1.0 {capsule} active L yrica 25 MG eCW1 ([facility]) pregabalin 25 MG Oral Capsule [Lyrica] Lyrica 25 MG Lyrica 2 5 MG 11/06/2019 12:00:00 AM EDT 1.0 {capsule} active L yrica 25 MG eCW1 ([facility]) pregabalin 25 MG Oral Capsule [Lyrica] Lyrica 25 MG Lyrica 2 5 MG 11/06/2019 12:00:00 AM EDT 1.0 {capsule} suspended Lyrica 25 MG eCW1 ([facility]) pregabalin 25 MG Oral Capsule [Lyrica] Lyrica 25 MG Lyrica 2 5 MG 11/06/2019 12:00:00 AM EDT 1.0 {capsule} active L yrica 25 MG eCW1 ([facility]) pregabalin 25 MG Oral Capsule [Lyrica] Lyrica 25 MG Lyrica 2 5 MG 11/06/2019 12:00:00 AM EDT 1.0 {capsule} suspended Lyrica 25 MG eCW1 ([facility]) pregabalin 25 MG Oral Capsule [Lyrica] Lyrica 25 MG Lyrica 2 5 MG 11/06/2019 12:00:00 AM EDT 1.0 {capsule} suspended Lyrica 25 MG eCW1 ([facility]) pregabalin 25 MG Oral Capsule [Lyrica] Lyrica 25 MG Lyrica 2 5 MG 11/06/2019 12:00:00 AM EDT active 1 capsul e eCW1 ([facility]) 25 mg 11/06/2019 12:00:00 AM EDT capsule 60 TAKE ONE CAPSULE BY MOUTH TWICE A DAY MD 2 CAPSULES TAKE ONE CAPSULE BY MOUTH TWICE A DAY MD 2 CAPSULES SO LD: 11/15/2019 [facility] pregabalin 25 MG Oral Capsule [Lyrica] Lyrica 25 MG Lyrica 2 5 MG 11/06/2019 12:00:00 AM EDT 1.0 {capsule} suspended Lyrica 25 MG eCW1 ([facility]) pregabalin 25 MG Oral Capsule [Lyrica] Lyrica 25 MG Lyrica 2 5 MG 11/06/2019 12:00:00 AM EDT 1.0 {capsule} suspended Lyrica 25 MG eCW1 ([facility]) pregabalin 25 MG Oral Capsule [Lyrica] Lyrica 25 MG Lyrica 2 5 MG 11/06/2019 12:00:00 AM EDT 1.0 {capsule} suspended Lyrica 25 MG eCW1 ([facility]) 20 mg 11/06/2019 12:00:00 AM EDT tablet 270 TAKE ONE AND ONE HALF TABLET BY MOUTH WITH FOOD OR MILK THREE TIMES A DAY NEEDED TAKE ONE AND ONE HALF TABLET BY MOUTH WITH FOOD OR MILK THREE TIMES A DAY NEEDED SOLD: 11/15/2019 [facility] pregabalin 25 MG Oral Capsule [Lyrica] Lyrica 25 MG Lyrica 2 5 MG 11/06/2019 12:00:00 AM EDT 1.0 {capsule} suspended Lyrica 25 MG eCW1 ([facility]) 20 mg 11/06/2019 12:00:00 AM EDT tablet 270 TAKE ONE AND ONE HALF TABLET BY MOUTH WITH FOOD OR MILK THREE TIMES A DAY NEEDED TAKE ONE AND ONE HALF TABLET BY MOUTH WITH FOOD OR MILK THREE TIMES A DAY NEEDED SOLD: 02/14/2020 [facility] pregabalin 25 MG Oral Capsule [Lyrica] Lyrica 25 MG Lyrica 2 5 MG 11/06/2019 12:00:00 AM EDT 1.0 {capsule} suspended Lyrica 25 MG eCW1 ([facility]) pregabalin 25 MG Oral Capsule [Lyrica] Lyrica 25 MG Lyrica 2 5 MG 11/06/2019 12:00:00 AM EDT 1.0 {capsule} suspended Lyrica 25 MG eCW1 ([facility]) pregabalin 25 MG Oral Capsule [Lyrica] Lyrica 25 MG Lyrica 2 5 MG 11/06/2019 12:00:00 AM EDT active 1 capsul e eCW1 ([facility]) pregabalin 25 MG Oral Capsule [Lyrica] Lyrica 25 MG Lyrica 2 5 MG 11/06/2019 12:00:00 AM EDT 1.0 {capsule} suspended Lyrica 25 MG eCW1 ([facility]) Hydroxyzine Hydrochloride 25 MG Oral Tablet HydrOXYzin e HCl 25 MG HydrOXYzine HCl 25 MG 09/17/2019 12:00:00 AM EST 1.0 {tablet_as_needed} active HydrOXYzine HCl 25 MG eCW1 ([facility]) Hydroxyzine Hydrochloride 25 MG Oral Tablet HydrOXYzin e HCl 25 MG HydrOXYzine HCl 25 MG 09/17/2019 12:00:00 AM EST 1.0 {tablet_as_needed} active HydrOXYzine HCl 25 MG eCW1 ([facility]) Hydroxyzine Hydrochloride 25 MG Oral Tablet HydrOXYzin e HCl 25 MG HydrOXYzine HCl 25 MG 09/17/2019 12:00:00 AM EST 1.0 {tablet_as_needed} active HydrOXYzine HCl 25 MG eCW1 ([facility]) Hydroxyzine Hydrochloride 25 MG Oral Tablet HydrOXYzin e HCl 25 MG HydrOXYzine HCl 25 MG 09/17/2019 12:00:00 AM EST 1.0 {tablet_as_needed} active HydrOXYzine HCl 25 MG eCW1 ([facility]) Hydroxyzine Hydrochloride 25 MG Oral Tablet HydrOXYzin e HCl 25 MG HydrOXYzine HCl 25 MG 09/17/2019 12:00:00 AM EST 1.0 {tablet_as_needed} active HydrOXYzine HCl 25 MG eCW1 ([facility]) Hydroxyzine Hydrochloride 25 MG Oral Tablet HydrOXYzin e HCl 25 MG HydrOXYzine HCl 25 MG 09/17/2019 12:00:00 AM EST active 1 tablet as needed eCW1 ([facility]) Hydroxyzine Hydrochloride 25 MG Oral Tablet HydrOXYzin e HCl 25 MG HydrOXYzine HCl 25 MG 09/17/2019 12:00:00 AM EST 1.0 {tablet_as_needed} active HydrOXYzine HCl 25 MG eCW1 ([facility]) Hydroxyzine Hydrochloride 25 MG Oral Tablet HydrOXYzin e HCl 25 MG HydrOXYzine HCl 25 MG 09/17/2019 12:00:00 AM EST 1.0 {tablet_as_needed} active HydrOXYzine HCl 25 MG eCW1 ([facility]) Hydroxyzine Hydrochloride 25 MG Oral Tablet HydrOXYzin e HCl 25 MG HydrOXYzine HCl 25 MG 09/17/2019 12:00:00 AM EST active 1 tablet as needed eCW1 ([facility]) Hydroxyzine Hydrochloride 25 MG Oral Tablet HydrOXYzin e HCl 25 MG HydrOXYzine HCl 25 MG 09/17/2019 12:00:00 AM EST 1.0 {tablet_as_needed} active HydrOXYzine HCl 25 MG eCW1 ([facility]) Hydroxyzine Hydrochloride 25 MG Oral Tablet HydrOXYzin e HCl 25 MG HydrOXYzine HCl 25 MG 09/17/2019 12:00:00 AM EST 1.0 {tablet_as_needed} active HydrOXYzine HCl 25 MG eCW1 ([facility]) Hydroxyzine Hydrochloride 25 MG Oral Tablet HydrOXYzin e HCl 25 MG HydrOXYzine HCl 25 MG 09/17/2019 12:00:00 AM EST active 1 tablet as needed eCW1 ([facility]) Hydroxyzine Hydrochloride 25 MG Oral Tablet HydrOXYzin e HCl 25 MG HydrOXYzine HCl 25 MG 09/17/2019 12:00:00 AM EST 1.0 {tablet_as_needed} active HydrOXYzine HCl 25 MG eCW1 ([facility]) Hydroxyzine Hydrochloride 25 MG Oral Tablet HydrOXYzin e HCl 25 MG HydrOXYzine HCl 25 MG 09/17/2019 12:00:00 AM EST 1.0 {tablet_as_needed} active HydrOXYzine HCl 25 MG eCW1 ([facility]) 25 mg 09/17/2019 12:00:00 AM EST tablet 60 TAKE ONE TABLET BY MOUTH FOUR TIMES A DAY NEEDED TAKE ONE TABLET BY MOUTH FOUR TIMES A DAY NEEDED SO LD: 09/17/2019 [facility] Hydroxyzine Hydrochloride 25 MG Oral Tablet HydrOXYzin e HCl 25 MG HydrOXYzine HCl 25 MG 09/17/2019 12:00:00 AM EST 1.0 {tablet_as_needed} active HydrOXYzine HCl 25 MG eCW1 ([facility]) Hydroxyzine Hydrochloride 25 MG Oral Tablet HydrOXYzin e HCl 25 MG HydrOXYzine HCl 25 MG 09/17/2019 12:00:00 AM EST 1.0 {tablet_as_needed} active HydrOXYzine HCl 25 MG eCW1 ([facility]) Hydroxyzine Hydrochloride 25 MG Oral Tablet HydrOXYzin e HCl 25 MG HydrOXYzine HCl 25 MG 09/17/2019 12:00:00 AM EST active 1 tablet as needed eCW1 ([facility]) Hydroxyzine Hydrochloride 25 MG Oral Tablet HydrOXYzin e HCl 25 MG HydrOXYzine HCl 25 MG 09/17/2019 12:00:00 AM EST 1.0 {tablet_as_needed} active HydrOXYzine HCl 25 MG eCW1 ([facility]) benzonatate 100 MG Oral Capsule BENZONATATE 08/20/2019 12:00:00 AM EST capsule 30 TAKE 1 TO 2 CAPSULES BY MOUTH EVERY 8 HO URS NEEDED FOR COUGH TAKE 1 TO 2 CAPSULES BY MOUTH EVERY 8 HOURS NEEDED FOR COUGH SOLD: 08/20/2019 [facility] 90 mcg/actuation 08/20/2019 12:00:00 AM EST HFA aerosol inha ler 8 INHALE 2 PUFFS BY MOUTH EVERY 4 TO 6 HOURS NEEDED INHALE 2 PUFFS BY MOUTH EVERY 4 TO 6 HOURS NEEDED SOLD: 09/17/2019 [facility] 90 mcg/actuation 08/20/2019 12:00:00 AM EST HFA aerosol inha ler 8 INHALE 2 PUFFS BY MOUTH EVERY 4 TO 6 HOURS NEEDED INHALE 2 PUFFS BY MOUTH EVERY 4 TO 6 HOURS NEEDED SOLD: 11/01/2019 [facility] 0.75 % 08/20/2019 12:00:00 AM EST gel 70 INSERT 1 APPLICATORFUL VAGINALLY TWO TIMES A DAY FOR 7 DAYS INSERT 1 APPLICATORFUL VAGINALLY TWO ALESSANDRO ES A DAY FOR 7 DAYS SOLD: 08/20/2019 [facility] benzonatate 100 MG Oral Capsule [Amber Mckeon] Tessalon P erles 08/20/2019 12:00:00 AM EST ORAL completed [facility] ([facility]) Metronidazole 0.0075 MG/MG Vaginal Gel Metronidazole 0 12:00:00 AM EST completed [facility] ([facility]) 90 mcg/actuation 08/20/2019 12:00:00 AM EST HFA aerosol inha ler 8 INHALE 2 PUFFS BY MOUTH EVERY 4 TO 6 HOURS NEEDED INHALE 2 PUFFS BY MOUTH EVERY 4 TO 6 HOURS NEEDED SOLD: 08/20/2019 [facility] 90 mcg/actuation 08/20/2019 12:00:00 AM EST HFA aerosol inha ler 8 INHALE 2 PUFFS BY MOUTH EVERY 4 TO 6 HOURS NEEDED INHALE 2 PUFFS BY MOUTH EVERY 4 TO 6 HOURS NEEDED SOLD: 10/12/2019 [facility] 800 mg 07/17/2019 12:00:00 AM EST tablet 90 TAKE ONE TABLET BY MOUTH THREE TIMES A DAY NEEDED TAKE ONE TABLET BY MOUTH THREE TIMES A DAY NEEDED S OLD: 07/18/2019 [facility] 20 mg 06/19/2019 12:00:00 AM EST tablet 270 TAKE 1 AND 1/2 TABLETS BY MOUTH THREE TIMES A DAY NEEDED WITH FOOD OR MILK TAKE 1 AND 1/2 TABLETS BY MOUTH THREE TIMES A DAY NEEDED WITH FOOD OR MILK SOLD: 05/13/2020 [facility] 10 mg 05/28/2019 12:00:00 AM EDT capsule 30 TAKE ONE CAPSULE BY MOUTH EVERY MORNING WITH 20MG TAKE ONE CAPSULE BY MOUTH EVERY MORNING WITH 20MG SOLD : 07/28/2019 [facility] 10 mg 05/28/2019 12:00:00 AM EDT capsule 30 TAKE ONE CAPSULE BY MOUTH EVERY MORNING WITH 20MG TAKE ONE CAPSULE BY MOUTH EVERY MORNING WITH 20MG SOLD : 08/26/2019 [facility] 20 mg 05/28/2019 12:00:00 AM EDT capsule 30 TAKE ONE CAPSULE BY MOUTH EVERY MORNING WITH 10MG TAKE ONE CAPSULE BY MOUTH EVERY MORNING WITH 10MG SOLD : 10/17/2019 [facility] 20 mg 05/28/2019 12:00:00 AM EDT capsule 30 TAKE ONE CAPSULE BY MOUTH EVERY MORNING WITH 10MG TAKE ONE CAPSULE BY MOUTH EVERY MORNING WITH 10MG SOLD : 09/29/2019 [facility] 10 mg 05/28/2019 12:00:00 AM EDT capsule 30 TAKE ONE CAPSULE BY MOUTH EVERY MORNING WITH 20MG TAKE ONE CAPSULE BY MOUTH EVERY MORNING WITH 20MG SOLD : 09/29/2019 [facility] 20 mg 05/28/2019 12:00:00 AM EDT capsule 30 TAKE ONE CAPSULE BY MOUTH EVERY MORNING WITH 10MG TAKE ONE CAPSULE BY MOUTH EVERY MORNING WITH 10MG SOLD : 07/28/2019 [facility] 10 mg 05/28/2019 12:00:00 AM EDT capsule 30 TAKE ONE CAPSULE BY MOUTH EVERY MORNING WITH 20MG TAKE ONE CAPSULE BY MOUTH EVERY MORNING WITH 20MG SOLD : 10/17/2019 [facility] 20 mg 05/28/2019 12:00:00 AM EDT capsule 30 TAKE ONE CAPSULE BY MOUTH EVERY MORNING WITH 10MG TAKE ONE CAPSULE BY MOUTH EVERY MORNING WITH 10MG SOLD : 08/26/2019 [facility] 150 mg 01/23/2019 12:00:00 AM EDT tablet 3 TAKE 1 TABLET BY MOUTH ONCE DAILY TAKE 1 TABLET BY MOUTH ONCE DAILY SOLD: 09/04/2019 [facility] 150 mg 01/23/2019 12:00:00 AM EDT tablet 3 TAKE 1 TABLET BY MOUTH ONCE DAILY TAKE 1 TABLET BY MOUTH ONCE DAILY SOLD: 10/12/2019 [facility] 150 mg 01/23/2019 12:00:00 AM EDT tablet 3 TAKE 1 TABLET BY MOUTH ONCE DAILY TAKE 1 TABLET BY MOUTH ONCE DAILY SOLD: 08/07/2019 [facility] 20 mg 01/03/2019 12:00:00 AM EDT capsule,delayed release (DR/EC) 90 TAKE ONE CAPSULE BY MOUTH EVERY DAY TAKE ONE CAPSULE BY MOUTH EVERY DAY SOLD: 09/04/2019 [facility] 180 mg 08/23/2018 12:00:00 AM EST capsule,extended releas e 24 hr 90 TAKE ONE CAPSULE BY MOUTH EVERY DAY TAKE ONE CAPSULE BY MOUTH EVERY DAY SOLD: 08/20/2019 [facility] Insurance Providers Payer name Policy type / Coverage type Policy ID Covered green party ID Covered green party's relationship to mckay Policy Mckay Plan Information EMEDNY [id number] SP [id number] MEDICARE [id number] SP [id number] MEDICARE A [id number] Self [id number] MEDICAID [id number] Self [id number] Medicaid [facility] Healthcare S D [id number] SELF [id number] Medicare C [id number] SELF [id number] MEDICAID [id number] SP [id number] MEDICARE C [id number] S [id number] MEDICAID M [id number] MEDICARE C [id number] S [id number] A MEDICARE [id number] SP [id number] A MEDICARE A [id number] Self [id number] A [place] Part B [id number] Self [id number] Medicare [place] Gov't Servi Medicare Primary [id number] Self [id number] ANSI-Medicaid [id number] ANSI-Medicare Part B [id number] MEDICAID [id number] SP [id number] ANSI-Medicaid [id number] ANSI-Medicare Part B [id number] ANSI-Medicaid [id number] ANSI-Medicare Part B [id number] [facility] Medigap Part B [id number] Family Dependent [id number] [place] [id number] Self [id number] [place] Medicare Primary [id number] Self [id number] ANSI-Medicare Part B [id number] ANSI-Medicaid [id number] Medicaid [facility] Part B [id number] Self [id number] Medicare Natl Gov't Servi Medicare Primary [id number] Self [id number] ANSI-Medicare Part B [id number] ANSI-Medicaid [id number] ANSI-Medicare Part B [id number] ANSI-Medicaid [id number] Medicaid [facility] Part B [id number] Self [id number] Medicare [place] Gov't Servi Medicare Primary [id number] Self [id number] [place] [id number] Self [id number] Medicare [place] Gov't Servi Medicare Primary [id number] Self [id number] ANSI-Medicare Part B [id number] ANSI-Medicaid [id number] ANSI-Medicare Part B [id number] ANSI-Medicaid [id number] ANSI-Medicare Part B [id number] ANSI-Medicaid [id number] ANSI-Medicaid [id number] ANSI-Medicare Part B [id number] ANSI-Medicaid [id number] ANSI-Medicare Part B [id number] ANSI-Medicaid [id number] ANSI-Medicare Part B [id number] ANSI-Medicaid [id number] ANSI-Medicare Part B [id number] ANSI-Medicare Part B [id number] ANSI-Medicaid [id number] ANSI-Medicaid [id number] ANSI-Medicare Part B [id number] ANSI-Medicare Part B [id number] ANSI-Medicaid [id number] ANSI-Medicaid [id number] ANSI-Medicare Part B [id number] MEDICARE [id number] SP [id number] MEDICAID [id number] SP [id number] [place] Medigap Part B [id number] Family Dependent [id number] Medicaid [place] Medigap Part B [id number] Self [id number] Medicare [facility] Medicare Primary [id number] Self [id number] ANSI-Medicare Part B [id number] ANSI-Medicaid [id number] [place] [id number] Self [id number] Medicare [facility] Gov't Servi Medicare Primary [id number] Self [id number] ANSI-Medicaid [id number] ANSI-Medicare Part B [id number] ANSI-Medicaid [id number] ANSI-Medicare Part B [id number] ANSI-Medicare Part B [id number] ANSI-Medicaid [id number] [facility]-Medicaid [id number] ANS-Medicare Part B [id number] [place] [id number] Self [id number] Medicare [facility] Medicare Primary [id number] Self [id number] ANSI-Medicare Part B [id number] [facility]-Medicaid [id number] MEDICARE [id number] SP [id number] [place] [id number] Self [id number] [place] Gov't Servi [place] Primary [id number] Self [id number] [facility] OPTIONS C [id number] S [id number] [place] Gov[place] Primary [id number] Self [id number] [place] Gov[place] Primary [id number] Self [id number] [place] Medigap Part B [id number] Family Dependent [id number] [place] B [id number] Self [id number] [place] Medicare Primary [id number] Self [id number] [place] Medigap Part B [id number] Family Dependent [id number] [place] Part B [id number] Self [id number] [place] Medicare Primary [id number] Self [id number] Medicare [place] Gov[place] Serv[place] Medicare Primary [id number] Self [id number] [place] Medicare Primary [id number] Self [id number] MEDICARE C [id number] S [id number] MEDICARE [id number] SP [id number] MEDICARE A [id number] Self [id number] MEDICARE [id number] SP [id number] [place] [id number] Self [id number] [place] Primary [id number] Self [id number] [place] [id number] Self [id number] [place] Medicare Primary [id number] Self [id number] Ghi Medigap Part B [id number] Family Dependent [id number] [place] [id number] Self [id number] [place] Primary [id number] Self [id number] MEDICARE [id number] SP [id number] [place] Medigap Part B Family D[place] Medicare Primary Self MEDICARE C [id number] S [id number] [place] Self SELF PAY UNAVAILABLE SP [place] BLE [place] Self [place] Medigap Part B Self Medicare [place] Govt Serv[place] Self MEDICARE P [id number] S [id number] Problems, Conditions, and Diagnoses Code Display Name Description Problem Type Effective Dates Data Source(s) M53.3 [id number] Sacrococcygeal disorders, not elsewhere c lassified Problem 11/26/2019 12:00:00 AM EDT eCW1 ([facility]) Z00.00 [id number] Medicare annual wellness visit, subsequen t Problem 11/26/2019 12:00:00 AM EDT eCW1 ([facility]) M46.1 [id number] Bilateral sacroiliitis Problem 11/26/2019 12:00:00 AM EDT eCW1 ([facility]) M53.3 [id number] Sacrococcygeal disorders, not elsewhere c lassified Problem 11/26/2019 12:00:00 AM EDT eCW1 ([facility]) Z00.00 [id number] Medicare annual wellness visit, subsequen t Problem 11/26/2019 12:00:00 AM EDT eCW1 ([facility]) M46.1 [id number] Bilateral sacroiliitis Problem 11/26/2019 12:00:00 AM EDT eCW1 ([facility]) I44.2 Atrioventricular block, complete Atrioventricula r block, complete Diagnosis 08/17/2020 01:52:[address] [facility] Z95.0 Presence of cardiac pacemaker Presence of cardiac pace maker Diagnosis 08/17/2020 01:52:[address] [facility] M53.3 Sacrococcygeal disorders, not elsewhere classified Sacrococcygeal disorders, not elsewhere classified Diagnosis 01/20/2020 11:48:43 AM E [facility] Surgeries/Procedures Procedure Description Date Indications Data Source(s) Therapeutic, Prophylactic Or Diagnostic Injection Subq/Im 04/18/2020 12:00:00 AM EDT MEDENT ([facility]) Annual wellness visit, includes a person alized prevention plan of service (pps), subsequent visit 11/26/2019 12:00:00 AM EDT eCW1 ([facility]) URINE-NO MICRO 10/08/2019 12:00:00 AM EST eCW1 ([facility]) Results ID Date Data Source LIPID PANEL (CARDIAC RISK) 08/24/2020 12:00:00 AM EST eCW1 ( [facility]) Name Value Range Interpretation Code Description Data Ewelina rce(s) Supporting Document(s) Triglyceride [Mass/volume] in Serum or Plasma by calculation 147 <150 TRIGLYCERIDES LEVEL eCW1 ([facility]) Cholesterol [Moles/volume] in Serum or Plasma 213 <200 CHOLESTEROL LEVEL eCW1 ([facility]) Cholesterol in HDL [Moles/volume] in Serum or Plasma 49 >40 HDL CHOLESTEROL eCW1 ([facility]) 164 NON-HDL-C eCW1 ([facility]) Cholesterol in LDL [Mass/volume] in Serum or Plasma by calculation 135 <100 LDL CHOLESTEROL eCW1 ([facility]) 4.346 <5 CHOLESTEROL RISK RATIO eCW1 ([facility]) ID Date Data Source VITAMIN D 25-HYDROXY 08/24/2020 12:00:00 AM EST eCW1 ([facility]) Name Value Range Interpretation Code Description Data Ewelina rce(s) Supporting Document(s) 23.3 30.0-100.0 TOTAL 25(OH) VITAMIN D eC W1 ([facility]) ID Date Data Source Reticulocyte Count [employer] 08/24/2020 12:00:00 AM EST eCW1 ([facility]) Name Value Range Interpretation Code Description Data Ewelina rce(s) Supporting Document(s) 1.3 0.5-1.5 RETICULOCYTE % eCW1 ([facility]) ID Date Data Source FREE T4 & TSH PANEL 08/24/2020 12:00:00 AM EST eCW1 ([facility]) Name Value Range Interpretation Code Description Data Ewelina rce(s) Supporting Document(s) 2.090 0.358-3.740 THYROID STIMULATING HORM ONE eCW1 ([facility]) 0.90 0.76-1.46 FREE T4 eCW1 ([facility]) ID Date Data Source Comprehensive Metabolic Profile (CMP) 08/24/2020 12:00:00 AM EST eCW1 ([facility]) Name Value Range Interpretation Code Description Data Ewelina rce(s) Supporting Document(s) 13 7-18 eCW1 ([facility]) 0.70 0.55-1.30 eCW1 ([facility]) > 60.0 >60 eCW1 ([facility]) 84 70-100 eCW1 ([facility]) 28 21-32 eCW1 ([facility]) 107 98-107 eCW1 ([facility]) 139 136-145 eCW1 ([facility]) 3.9 3.5-5.1 eCW1 ([facility]) 84 45-117 eCW1 ([facility]) 8.8 8.5-10.1 eCW1 ([facility]) 19 7-37 eCW1 ([facility]) 18 12-78 eCW1 ([facility]) 7.2 6.4-8.2 eCW1 ([facility]) 0.2 0.2-1.0 eCW1 ([facility]) 1.0 1.2-2.2 eCW1 ([facility]) 3.6 3.2-5.2 eCW1 ([facility]) ID Date Data Source CBC - Complete Blood Count 08/24/2020 12:00:00 AM EST eCW1 ( [facility]) Name Value Range Interpretation Code Description Data Ewelina rce(s) Supporting Document(s) 4.56 4.00-5.40 eCW1 ([facility]) 9.9 4.0-10.0 eCW1 ([facility]) 21.9 27.0-33.0 eCW1 ([facility]) 74.3 80.0-96.0 eCW1 ([facility]) 10.0 12.0-15.5 eCW1 ([facility]) 33.9 36.0-47.0 eCW1 ([facility]) 17.1 11.5-14.5 eCW1 ([facility]) 29.5 32.0-36.5 eCW1 ([facility]) 432 150-450 eCW1 ([facility]) ID Date Data Source [id number] 07/14/2020 10:36:00 AM EST MEDENT ([facility]) Name Value Range Interpretation Code Description Data Ewelina rce(s) Supporting Document(s) Bacteria identified in Urine by Culture Laboratory test result MEDENT ([facility]) <content>FULL REPORT IN LAB NOTES (eCW a nd Medent).</content>
<content></content>
<content>ORGANISM 1: KLEBSIELLA PNEUMONIAE</content>
<content></content>
<content>COLONY COUNT >100,000</content>
<content></content>
<content></content>
<content> ORGANISM 1: KLEBSIELLA PNEUMONIAE</content>
<content></content>
<content>KLEBSIELLA PNEUMONIAE: REACTION</content>
<content>TRIMETHOPRIM/SULFAMETHOXAZOLE IV 160mg TMP & 800mg SMXq6h >=320 R</content>
<content> TRIMETHOPRIM/SULFAMETHOXAZOLE PO Bactrim DS Bid >=320 R</content>
<content>AMPICILLIN IV 500mg q6h >=32 R</content>
<content>AMPICILLIN PO 500mg q6h fasting >=32 R</content>
<content>GENTAMICIN IV 80mg q8h <=1 S</content>
<content>NITROFURANTOIN PO 100mg BID 64 I</content>
<content>CEFAZOLIN IV 1gm q8h <=4 S</content>
<content>LEVOFLOXACIN IV 500mg qd <=0.12 S</content>
<content>LEVOFLOXACIN PO 250mg qd <=0.12 S</content>
<content>LEVOFLOXACIN PO 500mg qd <=0.12 S</content>
<content>TOBRAMYCIN IV 80mg q8h <=1 S</content>
<content> CEFTRIAXONE IV 1gm q24h <=1 S</content>
<content>CEFTAZIDIME IV 1gm q8h <=1 S</content>
<content>AMPICILLIN/SULBACTAM IV 1.5g q6h 8 S</content>
<content>PIPERACILLIN/TAZOBACTAM IV 2.25 gm q6h <=4 S</content>
<content>AZTREONAM IV 1gm q8h <=1 S</content>
<content>ERTAPENEM IV 1gm qd <=0.5 S</content>
<content>MEROPENEM IV 1 gm q8h <=0.25 S</content>
<content>MEROPENEM IV 500 mg q8h <=0.25 S</content>
<content>TIGECYCLINE IV 50mg q12h 1 S</content>
<content>CEFEPIME IV 1 gm q12h <=1 S</content>
<content>CEFEPIME IV 2 gm q12h <=1 S</content>
<content>EXTD BRD SPCTRM BETA LACTAMASE IV NEGATIVE FOR ESBL</content>
<content></content> ID Date Data Source [id number] 05/25/2020 03:29:00 PM EDT MEDENT ([facility]) Name Value Range Interpretation Code Description Data Ewelina rce(s) Supporting Document(s) Bacteria identified in Urine by Culture Laboratory test result MEDENT ([facility], [facility]) Rx Lidocaine topical Bacteria identified in Genital specimen by Aerobe cult ure Laboratory test result MEDENT ([facility]) Rx Lidocaine topical ID Date Data Source [id number] 04/18/2020 01:08:00 PM EDT MEDENT ([facility]) Name Value Range Interpretation Code Description Data Ewelina rce(s) Supporting Document(s) Bacteria identified in Urine by Culture Laboratory test result Abnormal (applies to non-numeric results) MEDENT ([facility]) <content>FULL REPORT IN LAB NOTES (eCW a nd Medent).</content>
<content></content>
<content>ORGANISM 1: KLEBSIELLA PNEUMONIAE</content>
<content></content>
<content>COLONY COUNT >100,000</content>
<content></content>
<content></content>
<content> ORGANISM 1: KLEBSIELLA PNEUMONIAE</content>
<content></content>
<content>KLEBSIELLA PNEUMONIAE: REACTION</content>
<content>TRIMETHOPRIM/SULFAMETHOXAZOLE IV 160mg TMP & 800mg SMXq6h >=320 R</content>
<content> TRIMETHOPRIM/SULFAMETHOXAZOLE PO Bactrim DS Bid >=320 R</content>
<content>AMPICILLIN IV 500mg q6h >=32 R</content>
<content>AMPICILLIN PO 500mg q6h fasting >=32 R</content>
<content>GENTAMICIN IV 80mg q8h <=1 S</content>
<content>NITROFURANTOIN PO 100mg BID 32 S</content>
<content>CEFAZOLIN IV 1gm q8h <=4 S</content>
<content>LEVOFLOXACIN IV 500mg qd <=0.12 S</content>
<content>LEVOFLOXACIN PO 250mg qd <=0.12 S</content>
<content>LEVOFLOXACIN PO 500mg qd <=0.12 S</content>
<content>TOBRAMYCIN IV 80mg q8h <=1 S</content>
<content> CEFTRIAXONE IV 1gm q24h <=1 S</content>
<content>CEFTAZIDIME IV 1gm q8h <=1 S</content>
<content>AMPICILLIN/SULBACTAM IV 1.5g q6h 8 S</content>
<content>PIPERACILLIN/TAZOBACTAM IV 2.25 gm q6h <=4 S</content>
<content>AZTREONAM IV 1gm q8h <=1 S</content>
<content>ERTAPENEM IV 1gm qd <=0.5 S</content>
<content>MEROPENEM IV 1 gm q8h <=0.25 S</content>
<content>MEROPENEM IV 500 mg q8h <=0.25 S</content>
<content>TIGECYCLINE IV 50mg q12h 1 S</content>
<content>CEFEPIME IV 1 gm q12h <=1 S</content>
<content>CEFEPIME IV 2 gm q12h <=1 S</content>
<content>EXTD BRD SPCTRM BETA LACTAMASE IV NEGATIVE FOR ESBL</content>
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 ID Date Data Source [id number] 02/18/2020 12:57:29 PM EDT [facility], PCName: Vernon RosaDOB: 1990Provider: Patricia Villalobos: 02/18/2020 Chief ComplaintChronic Pain secondary to spastic CP referred here today for B/l SI joint injections [facility] Patient has signed a [facility] Controlled Substance and Treatment Agreement. Patient has been given a copy of the treatment agreement and has been given a copy of our Prescription Information Fact Sheet. Do you have a Brace for your condition? Patient does not have a brace for their condition. Do you have a TENS Unit for your condition? Patient does not have a TENS Unit for their condition. Supplements: Patient is not currently taking any supplements. Nerve Conduction: Patient has had a Nerve Conduction Test. At today's visit patient presents with their Self Patient is currently working. 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 The patient is being seen for an initial evaluation. Pain Duration: enti re life Pain Quality: (Neuropathic) burning and numbness Pain Quality: (Nociceptive) sharp and stabbing Timing: constant Palliation: rest and IBU- mildly better Exacerbating: transfering, sex, prolonged Pain Score: a current pain level of 7/10, a minimum pain level of 2/10 and a maximum pain level of 9/10. Condition type: The patient is being seen for a chronic condition. Dr. Cristiana Parada. PAIN LOCATION: the pain is located in the low back . The etiology of this injury/condition is degenerative. PAST TREATMENT has included: NONSTEROIDAL ANTI-INFLAMMATORY drugs (effective). INTERVAL EVENTS: include . Patient referred here today for bilateral SI joint injections by Dr. Cristiana conrad. Has a history of spastic dysplasia CP. Has weakness in her legs. Has taken ibuprofen and baclofen for pain control and reports mild pain relief. Has a history of A. fib and flutter ( has Pacemaker and is taking Diltiazem) and thyroid cancer resulting in a right thyroid lobectomy. Also has a history of postop nausea and vomiting. His CT of the pelvis which showed acute angle deformities at the sacrococcygeal junction and coccyx. Also showed subtle degenerative changes in the SI joint with evidence of severe bilateral coxa valga with asymmetry of the hip joints and space narrowing. ASSOCIATED SYMPTOMS: include difficulty sleeping , difficulty walking, muscle pain/spasm, sexual dysfunction/libido, mood affected and extremity weakness: . Review of SystemsConstitutional: Normal. Eyes: Normal. ENT: normal. Cardiovascular: Normal. Respiratory: Normal. Gastrointestinal: Normal. Genitourinary: Normal. Musculoskeletal: muscle pain, lower back pain, joint pain and muscle soreness. Integumentary: Normal. Neurological: Normal. Psychiatric: Normal. Endocrine: Normal. Hematologic/Lymphatic: Normal. Allergies Bactrim Hives;; Recorded By: Iona Correa; 02/18/2020 11:17:48 AM cefdinir Hives;; Recorded By: Iona Correa; 02/18/2020 11:17:48 AM HPV, human papilloma virus vaccine, quadrivalent Anaphylaxis;; Recorded By: Iona Correa; 02/18/2020 11:17:48 AM Bee sting Anaphylaxis;; Recorded By: Iona Correa; 02/18/2020 11:17:48 AM Adhesive Tape Rash; Recorded By: Iona Correa; 02/18/2020 11:17:48 AMDenied Iodinated Contrast Media Recorded By: Iona Correa; 02/18/2020 11:17:48 AM Latex Recorded By: Iona Correa; 02/18/2020 11:17:48 AM Current Meds Baclofen TABS;Therapy: (Recorded:[id number]) to Recorded Dispense: 0 Days ; #: Sufficient; Refill: 0;For: SocHx: Part-time employment; PATY = N; Record; Last Updated By: Iona Correa; 02/18/2020 11:17:48 AM dilTIAZem HCl TABS;Therapy: (Recorded:[id number]) to Recorded Dispense: 0 Days ; #: Sufficient; Refill: 0;For: SocHx: Part-time employment; PATY = N; Record; Last Updated By: Iona Correa; 02/18/2020 11:17:48 AM EPINEPHrine SOLN;Therapy: (Recorded:[id number]) to Recorded Dispense: 0 Days ; #: Sufficient; Refill: 0;For: SocHx: Part-time employment; PATY = N; Record; Last Updated By: Iona Correa; 02/18/2020 11:17:48 AM FLUoxetine HCl TABS; Therapy: (Recorded:[id number]) to Recorded Dispense: 0 Days ; #: Sufficient; Refill: 0;For: SocHx: Part-time employment; PATY = N; Record; Last Updated By: Iona Correa; 02/18/2020 11:17:48 AM Ibuprofen CAPS;Therapy: (Recorded:[id number]) to Recorded Dispense: 0 Days ; #: Sufficient; Refill: 0;For: SocHx: Part-time employment; PATY = N; Record; Last Updated By: Iona Correa; 02/18/2020 11:17:48 AM Myrbetriq TB24;Therapy: (Recorded:[id number]) to Recorded Dispense: 0 Days ; #: Sufficient; Refill: 0;For: SocHx: Part-time employment; PATY = N; Record; Last Updated By: Iona Correa; 02/18/2020 11:17:48 AM Omeprazole TBEC;Therapy: (Recorded:[id number]) to Recorded Dispense: 0 Days ; #: Sufficient; Refill: 0;For: SocHx: Part-time employment; PATY = N; Record; Last Updated By: Iona Correa; 02/18/2020 11:17:48 AM Past Medical History History of cerebral palsy (V12.49) (Z86.69) History of gastroesophageal reflux (GERD) (V12.79) (Z87.19) History of goiter (V12.29) (Z86.39) due to cancer History of herpes zoster (V12.09) (Z86.19) History of malignant neoplasm of thyroid (V10.87) (Z85.850) History of Wheelchair bound (V46.3) (Z99.3) Surgical History Denied: History of Cardioverter defibrillator insertion History of Leg surgery 2007 BLE History of Pacemaker insertion 10/2008 History of Thyroid surgery 2017 Family History Family history of diabetes mellitus (V18.0) (Z83.3) Family history of diabetes mellitus (V18.0) (Z83.3) Social History Never a smoker 2020 No illicit drug use 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 Eyes: Lids are atraumatic, no lesions, sclerae are anicteric. currently wearing eyeglasses. Ears, Nose, Mouth, Throat: external ears and nose without trauma. Respiratory: Normal chest expansion and respiratory effort. Gait and Station: Not assessed- in WC- was able to pivot from WC to exam table and got up onto exam table w/ help of father. Reports can get on to stretcher of same height or lower for injection. Lungs are clear to auscultation bilaterally Cardiovascular: Extremities without peripheral edema, auscultation of heart reveals S1, S2 regular rate and rhythm, without murmur.Lumbosacral Spine:- Inspection: normal appearance. No deformity, ecchymosis, erythema or swelling noted. Normal Lordosis.. - Palpation/Tenderness: Tenderness on palpation of the LEFT: paraspinal . - Palpation/Tenderness: Tenderness on palpation of the RIGHT: paraspinal . - ROM Flexion: was restricted, was painful. - ROM Extension: was restricted, was painful.Right Lower Extremity Motor:- Hip: 2/5 flexion, 2/5 extension- Knee: 2/5 flexion, 2/5 extension- Foot: 2/5 Plantar , 2/5 DorsiFlexionSpecial Tests: flip test was negative, positive compression, positive wale and positive thigh thrustLeft Lower Extremity Motor:- Hip: 2/5 flexion, 2/5 extension- Knee: 2/5 flexion, 2/5 extension- Foot: 2/5 Plantar , 2/5 DorsiFlexionSpecial Tests: flip test was negative, positive compression and positive faberNeurological:Sensation Left Lower: normalSensation Right Lower: normal. Skin: Warm, dry, acyanotic. Psychological: Alert and oriented to person, place and time. Mood and affect are pleasant and appropriate. Judgement intact. Insight normal without delusions or hallucinations. Denies suicidal/homicidal ideation. Assessment 1. Sacroiliitis (720.2) (M46.1) 2. 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 Chronic pain (338.29) (G89.29) Plan 1. Treatment Room SI w/Fluoro at [facility] Referral Procedure Treatment Status: Hold For - Scheduling Requested for: [id number] Type : MedicareIs patient currently on a biologic? : NoIs patient taking Aspirin >325mg...? : NoIs your patient on an Anticoagulant -OR- have Coagulopathy...? : NoDoes Patient require a fuel oil truck driver...? : Patient requires a fuel oil truck driver for this procedureLaterality : BilateralFront Desk Reminder: : Schedule the Status Post BlockSI Joint Injection with Fluoro: : SIF = SI Joint with FluoroSchedule : Do not schedule within 7 days of any blockPatient must weigh 400 lbs or less. Enter weight : 227Is this an urgent SOS referral....? : No, this is not an urgent SOS referralDoes patient require a Yariel lift? : No Medication:. The patient does not receive any medication prescriptions from this office. Treatment includes: PROCEDURE(S): ASIPP Risk Stratification of Patients presenting for Interventional Pain Procedures: Decreasing Morbidity of COVID-19 Comments: 0Comments: 0Comments: 3Comments: 2Comments: 0Comments: 0Comments: 0Comments: 0Total Points: 5 According to the Covid-19 ASIPP guidelines and the medical history as relayed to me by the patient, the Covid-19 risk stratification is low .- Nerve Block Plan: I am ordering a, BILATERAL, SI JOINT INJECTION (Diagnostic). Please see physical exam for the results of THREE of the following tests: CHANDNI'S, THIGH THRUST, SI COMPRESSION, GAENSLAN'S TEST. , targeting the under fluoroscopy without sedation. NERVE BLOCK: The material risks, benefits, alternatives have been discussed with the patient, including no treatment. They include, but are not limited to, bleeding, bruising, infection, damage to targeted and non-targeted tissue, increased pain, nerve injury or other reaction, if severe, could lead to CVA, arrhythmias or . The patient was given procedure instructions and educational material for this specific procedure at the time of the visit.- Bleeding Disorder: Patient denies having a bleeding disorder. - Anticoagulation therapy:. Patient denies current treatment with anti-coagulation therapy. THERAPIES: Therapy Treatment Plan: Deferred: All Therapies: Deferred: per patient request. REFERRAL: ( referral ) FOLLOW UP: The patient should have a follow up visit 4 weeks post block. CONTINUE TREATMENT: Bisi will continue with the following:. Bisi is participating in a home exercise program and is encouraged to continue. - FALL PRECAUTIONS: Bisi is encouraged to use necessary assistive devices including wheelchair. - COMMUNICATIONS INSTRUCTOR: The patient was counseled on the following: treatment plan and future treatment options. Discussion/SummaryPatient referred here today for bilateral SI joint injections by Dr. Cristiana conrad. Has a history of spastic dysplasia CP. Has weakness in her legs. Has taken ibuprofen and baclofen for pain control and reports mild pain relief. Has a history of A. fib and flutter ( has Pacemaker and is taking Diltiazem) and thyroid cancer resulting in a right thyroid lobectomy. Also has a history of postop nausea and vomiting. Has CT of the pelvis which showed acute angle deformities at the s acrococcygeal junction and coccyx. Also showed subtle degenerative changes in the SI joint with evidence of severe bilateral coxa valga with asymmetry of the hip joints and space narrowing. She reports the pain is troublesome to her causing pain during sex, transferring between her WC to toilet/bed, getting in and out of car. At this point I am placing her for a bilateral SI joint injection with fluoroscopy and without sedation. I am also making referral for medical cannabis to help with the spasticity pain that she experiences secondary to the spastic dysplasia cerebral palsy. Risks and benefits were reviewed. She scores as low risk of raheem coronavirus if exposed and wishes to proceed with injections. Education material was provided. She will follow up 4 weeks after injection to evaluate effectiveness of treatment plan. Signatures Electronically signed by : Cynthia Villalobos NP; Feb 18 2020 12:25PM EST (Author) Electronically signed by : Ricky Flores MD; Feb 18 2020 12:57PM EST Name Value Range Interpretation Code Description Data Ewelina rce(s) Supporting Document(s) ID Date Data Source [id number] 01/20/2020 01:01:49 PM [facility] Name Value Range Interpretation Code Description Data Ewelina rce(s) Supporting Document(s) Progress Note [facility] [id number] [file] [id number]/Juan Francisco [file] [id number] ID Date Data Source [id number] 11/17/2019 12:00:00 AM EDT [facility] Mila Gomez MD Patient Name: BISI [id number] Date of : 1990[place] [address] Date of Exam: 11/17/2019PH#: Fax: [phone] EXAM: CT LUMBAR SPINE WITHOUT CONTRASTCLINICAL INFORMATION: Increasing back pain.There are no prior CT's of the lumbar spine for comparison.Low dose 64 slice contiguous helical scanning through the lumbar spine wasobtained using less than 1 mm increments and reconstructed in the [place] coronal planes.Vertebral body height and alignment is within normal limits. There isminimal posterior disc space narrowing at every level.There is no bony cause for foraminal narrowing or central canal stenosis.There is no CT evidence of a significant broad based annular bulge. CTcannot rule out a disc extrusion.The paraspinal musculature is within normal limits.There is no evidence of significant facet joint arthropathy.IMPRESSION:Findings are within normal limits as described above.Accredited by the [employer] in [place].NATALIIA Peña/Zahida you for referring BISI ROSA to our office. Electronically Signed - JANE CISSE DO 12/08/19 16:48 Name Value Range Interpretation Code Description Data Ewelina rce(s) Supporting Document(s) ID Date Data Source [id number] 11/17/2019 12:00:00 AM EDT [facility] Jian Gomez MD Patient Name: BISI [id number] Date of : 1990[place] [address] Date of Exam: 11/17/2019PH#: Fax: [phone] EXAM: CT PELVIS WITHOUT CONTRASTCLINICAL INFORMATION: Increasing pelvic pain.Bony CT pelvis was obtained. The exam was windowed in both bone and softtissue settings.Low dose [address] scanning of the pelvis was obtained withoutthe administration of intravenous contrast.Prior pelvic CT using standard fashion 03/02/2017 was reviewed.There is a tiny amount of air density in the sacroiliac joints withoutabnormal sacral or iliac lysis or sclerosis. The finding is of doubtfulsignificance. There is bilateral asymmetric hip joint space narrowing.There is evidence of significant bilateral coxa valga. There is nofracture. There is an acute angle deformity involving the sacrococcygealjunction and involving the coccyx is itself without evidence of a fracture. There is no evidence of a gross mass. Limited evaluation of the bowel loops and mesenteries show no gross abnormalities. No free fluid or freeair is seen in the pelvis.IMPRESSION:1. There is no evidence of an acute abnormality.2. Subtle air densities in the sacroiliac joints without evidence of acuteor chronic sacroiliitis. Correlate clinically.3. Acute angle deformity involving the sacrococcygeal junction and coccyxitself without evidence of an acute fracture. This needs to be correlatedclinically for sacrococcygeal pain. If the patient is experiencingsacrococcygeal pain, then consider followup with MRI to search for marrowedema.4. Evidence of severe bilateral coxa valga seen in conjunction withasymmetric hip joint space narrowing.5. Other findings as described above.Accredited by the [employer] in [place].NATALIIA Peña/Zahida you for referring BISI ROSA to our office. Electronically Signed - JANE CISSE DO 11/17/19 15:31 Name Value Range Interpretation Code Description Data Ewelina rce(s) Supporting Document(s) Procedure Social History Code Duration Value Status Description Data Source(s ) Smoking 08/24/2020 12:00:00 AM EST Never Smoker completed Never S dima eCW1 ([facility]) Smoking 08/24/2020 12:00:00 AM EST Never Smoker completed Never S moker eCW1 ([facility]) Smoking 08/24/2020 12:00:00 AM EST Never Smoker completed Never S moker eCW1 ([facility]) Smoking 08/24/2020 12:00:00 AM EST Never Smoker completed Never S moker eCW1 ([facility]) Smoking 02/26/2020 12:00:00 AM EDT Never Smoker completed Never S moker eCW1 ([facility]) Smoking 02/26/2020 12:00:00 AM EDT Never Smoker completed Never S moker eCW1 ([facility]) Smoking 02/26/2020 12:00:00 AM EDT Never Smoker completed Never S moker eCW1 ([facility]) Smoking 02/26/2020 12:00:00 AM EDT Never Smoker completed Never S moker eCW1 ([facility]) Smoking 02/26/2020 12:00:00 AM EDT Never Smoker completed Never S moker eCW1 ([facility]) Smoking 02/17/2020 12:00:00 AM EDT Never Smoker completed Never S moker eCW1 ([facility]) Smoking 02/17/2020 12:00:00 AM EDT Never Smoker completed Never S moker eCW1 ([facility]) Smoking 01/26/2020 12:00:00 AM EDT Patient has never smoked co mpleted Patient has never smoked MEDENT ([facility]) Alcohol intake 01/20/2020 12:00:00 AM EDT Current non-d robyn of alcohol (finding) completed Current non-drinker of alcohol (finding) [facility] Smoking 01/20/2020 12:00:00 AM EDT Never smoker completed Never s [facility] Smoking 11/26/2019 12:00:00 AM EDT Never Smoker completed Never S moker eCW1 ([facility]) Smoking 11/26/2019 12:00:00 AM EDT Never Smoker completed Never S moker eCW1 ([facility]) Vital Signs ID Date Data Source UNK Name Value Range Interpretation Code Description Data Source(s) Diastolic blood pressure 78 mm[Hg] 78 mm[Hg] eCW1 ([facility]) Systolic blood pressure 144 mm[Hg] 144 mm[Hg] e CW1 ([facility]) Body temperature 96.8 [degF] 96.8 [degF] eCW1 ( [facility]) Respiratory rate 18 /min 18 /min eCW1 ([facility]) Heart rate 91 /min 91 /min eCW1 ([facility]) Body mass index (BMI) [Ratio] 33.69 kg/m2 33.69 kg/m2 eCW1 ([facility]) Body height 68 [in_i] 68 [in_i] eCW1 ([facility]) Body weight 221.6 [lb_av] 221.6 [lb_av] eCW1 ([facility]) Body mass index (BMI) [Ratio] 33.4 kg/m2 33.4 k g/m2 MEDENT ([facility]) Body height 68 [in_i] 68 [in_i] MEDENT ([facility]) 5'8" Body weight 220.00 [lb_av] 220.00 [lb_av] MEDEN T ([facility]) Body temperature 97.8 [degF] 97.8 [degF] MEDENT ([facility]) Oxygen saturation in Arterial blood by Pulse oximetry 99 % 99 % MEDENT ([facility]) Respiratory rate 16 /min 16 /min MEDENT ( [facility]) Heart rate 70 /min 70 /min MEDENT ([facility]) Diastolic blood pressure 82 mm[Hg] 82 mm[Hg] MEDENT ([facility]) Systolic blood pressure 126 mm[Hg] 126 mm[Hg] M EDENT ([facility]) Body mass index (BMI) [Ratio] 33.4 kg/m2 33.4 k g/m2 [facility] ([facility]) Body height 68 [in_i] 68 [in_i] MEDENT ([facility]) 5'8" Body weight 220.00 [lb_av] 220.00 [lb_av] MEDEN T ([facility]) Body temperature 97.6 [degF] 97.6 [degF] MEDENT ([facility]) Oxygen saturation in Arterial blood by Pulse oximetry 99 % 99 % [facility] ([facility]) Respiratory rate 20 /min 20 /min MED[facility] ( [facility]) Heart rate 75 /min 75 /min MED[facility] ([facility]) Diastolic blood pressure 70 mm[Hg] 70 mm[Hg] [facility] ([facility]) Systolic blood pressure 122 mm[Hg] 122 mm[Hg] M EDENT ([facility]) Body mass index (BMI) [Ratio] 33.4 kg/m2 33.4 k g/m2 [facility] ([facility]) Body height 68 [in_i] 68 [in_i] MEDENT ([facility]) 5'8" Body weight 220.00 [lb_av] 220.00 [lb_av] MEDEN T ([facility]) Body temperature 97.9 [degF] 97.9 [degF] MEDENT ([facility]) Oxygen saturation in Arterial blood by Pulse oximetry 99 % 99 % [facility] ([facility]) Respiratory rate 18 /min 18 /min [facility] ( [facility]) Heart rate 70 /min 70 /min [facility] ([facility]) Diastolic blood pressure 83 mm[Hg] 83 mm[Hg] [facility] ([facility]) Systolic blood pressure 127 mm[Hg] 127 mm[Hg] M EDENT ([facility]) Diastolic blood pressure 76 mm[Hg] 76 mm[Hg] eCW1 ([facility]) Systolic blood pressure 138 mm[Hg] 138 mm[Hg] e CW1 ([facility]) Body temperature 97.4 [degF] 97.4 [degF] eCW1 ( [facility]) Respiratory rate 18 /min 18 /min eCW1 ([facility]) Heart rate 80 /min 80 /min eCW1 ([facility]) Body mass index (BMI) [Ratio] 33.90 kg/m2 33.90 kg/m2 eCW1 ([facility]) Body height 68 [in_i] 68 [in_i] eCW1 ([facility]) Body weight 223 [lb_av] 223 [lb_av] eCW1 ([facility]) Body temperature 96.7 [degF] 96.7 [degF] eCW1 ( [facility]) Respiratory rate 18 /min 18 /min eCW1 ([facility]) Heart rate 88 /min 88 /min eCW1 ([facility]) Body mass index (BMI) [Ratio] 34.51 kg/m2 34.51 kg/m2 eCW1 ([facility]) Body height 68 [in_i] 68 [in_i] eCW1 ([facility]) Body weight 227 [lb_av] 227 [lb_av] eCW1 ([facility]) Body mass index (BMI) [Ratio] 33.4 kg/m2 33.4 k g/m2 MED[facility] ([facility]) Body height 68 [in_i] 68 [in_i] MEDENT ([facility]) 5'8" Body weight 220.00 [lb_av] 220.00 [lb_av] MEDEN T ([facility]) Body temperature 98.4 [degF] 98.4 [degF] MEDENT ([facility]) Oxygen saturation in Arterial blood by Pulse oximetry 99 % 99 % [facility] ([facility]) Respiratory rate 16 /min 16 /min MED[facility] ( [facility]) Heart rate 74 /min 74 /min MED[facility] ([facility]) Diastolic blood pressure 85 mm[Hg] 85 mm[Hg] MED[facility] ([facility]) Systolic blood pressure 134 mm[Hg] 134 mm[Hg] M EDENT ([facility]) Diastolic blood pressure 80 mm[Hg] 80 mm[Hg] eCW1 ([facility]) Systolic blood pressure 120 mm[Hg] 120 mm[Hg] e CW1 ([facility]) Body temperature 97.1 [degF] 97.1 [degF] eCW1 ( [facility]) Respiratory rate 18 /min 18 /min eCW1 ([facility]) Heart rate 99 /min 99 /min eCW1 ([facility]) Body mass index (BMI) [Ratio] 37.70 kg/m2 37.70 kg/m2 W1 ([facility]) Body height 68 [in_us] 68 [in_us] eCW1 ([facility]) Body weight Measured 248 [lb_av] 248 [lb_av] eC W1 ([facility]) Body mass index (BMI) [Ratio] 33.4 kg/m2 33.4 k g/m2 [facility] ([facility]) Body height 68 [in_i] 68 [in_i] MEDENT ([facility]) 5'8" Body weight 220.00 [lb_av] 220.00 [lb_av] MEDEN T ([facility]) Body temperature 98.7 [degF] 98.7 [degF] [facility] ([facility]) Oxygen saturation in Arterial blood by Pulse oximetry 99 % 99 % [facility] ([facility]) Respiratory rate 16 /min 16 /min [facility] ( [facility]) Heart rate 88 /min 88 /min [facility] ([facility]) Diastolic blood pressure 73 mm[Hg] 73 mm[Hg] [facility] ([facility]) Systolic blood pressure 128 mm[Hg] 128 mm[Hg] M EDENT ([facility]) ID Date Data Source [id number] 08/17/2020 02:40:56 PM EST [facility] Name Value Range Interpretation Code Description Data Source(s) PREFERRED NAME [facility] PREFERRED NAME [facility] ID Date Data Source [id number] 01/23/2020 02:12:21 PM EDT [facility] Name Value Range Interpretation Code Description Data Source(s) WEIGHT RECORDED 236 lb 236 lb [facility] Body height Measured [address] [facility] Patient Treatment Plan of Care Planned Activity Planned Date Details Description Data Source (s) Ciprofloxacin 3 MG/ML / Dexamethasone 1 MG/ML Otic [facility] [Ciprodex] 02/26/2020 12:00:00 AM EDT eCW1 ([facility]) Ciprofloxacin 3 MG/ML / Dexamethasone 1 MG/ML Otic [employer] [Ciprodex] 02/26/2020 12:00:00 AM EDT eCW1 ([facility]) Ciprofloxacin 3 MG/ML / Dexamethasone 1 MG/ML Otic [employer] [Ciprodex] 02/26/2020 12:00:00 AM EDT eCW1 ([facility]) Ciprofloxacin 3 MG/ML / Dexamethasone 1 MG/ML Otic [employer] [Ciprodex] 02/26/2020 12:00:00 AM EDT eCW1 ([facility]) Ciprofloxacin 3 MG/ML / Dexamethasone 1 MG/ML Otic [employer] [Ciprodex] 02/26/2020 12:00:00 AM EDT eCW1 ([facility]) Azithromycin 250 MG Oral Tablet 02/20/2020 12:00:00 AM EDT eCW1 ([facility]) 24 HR mirabegron 25 MG Extended Release Oral Tablet [M yrbetriq] 02/17/2020 12:00:00 AM EDT eCW1 ([facility]) 24 HR mirabegron 25 MG Extended Release Oral Tablet [M yrbetriq] 02/17/2020 12:00:00 AM EDT eCW1 ([facility]) Fluconazole 150 MG Oral Tablet [Diflucan] 01/05/2020 12:00:00 AM ED T eCW1 ([facility]) Fluconazole 150 MG Oral Tablet [Diflucan] 01/05/2020 12:00:00 AM ED T eCW1 ([facility]) Fluconazole 150 MG Oral Tablet [Diflucan] 01/05/2020 12:00:00 AM ED T eCW1 ([facility]) Wheelchair Cushion - 11/21/2019 12:00:00 AM EDT eCW1 ([facility]) 24 HR Diltiazem Hydrochloride 180 MG Extended Release Oral Capsule 11/14/2019 12:00:00 AM EDT [facility] pregabalin 25 MG Oral Capsule [Lyrica] 11/06/2019 12:00:00 AM EDT eCW1 ([facility]) Hydroxyzine Hydrochloride 25 MG Oral Tablet 09/17/2019 12:00:00 AM EST eCW1 ([facility])
[2020-09-03] MEDS ORDERED: RHOGAM 300 MCG (1500 IU) INJ (J2790) IM ONE (12:45)
[2020-09-03 14:38] VITALS: BP 138/83
== END 2020-09-03 14:39 | disposition home or self-care (01) ==
LOC: M ED 11:58
DX: O03.9 Complete or unspecified spontaneous abortion without complication (principal); Z3A.01 Less than 8 weeks gestation of pregnancy; Z88.7 Allergy status to serum and vaccine; Z88.8 Allergy status to other drugs, medicaments and biological substances; Z91.030 Bee allergy status; Z91.013 Allergy to seafood
CPT/HCPCS: 36415; 86850; 86900; 86901; 96372; 99283; J2790

== ENCOUNTER → 2020-10-19 | Outpatient (REF) | payer MEDICARE, MEDICAID ==
[~2020-10-19] MED LIST changes: +FERR325T18; +MYRB25TA
[2020-10-19 13:42] LABS: HEMATOCRIT 39.3 % (36.0-47.0); HEMOGLOBIN 11.8 g/dl (12.0-15.5); MEAN CORPUSCULAR HEMOGLOBIN 23.6 pg (27.0-33.0); MEAN CORPUSCULAR VOLUME 78.4 fl (80.0-96.0); PLATELET COUNT, AUTOMATED 363 10^3/uL (150-450); RED BLOOD COUNT 5.01 10^6/uL (4.00-5.40); WHITE BLOOD COUNT 10.9 10^3/uL (4.0-10.0)
[2020-10-19 14:08] LABS: PERCENT SATURATION 4.9 % (13.2-45.0)
== END ==
LOC: M SFHCADAM 10:17
PROVIDERS: ATTEND Family Medicine
DX: D50.0 Iron deficiency anemia secondary to blood loss (chronic) (principal)
CPT/HCPCS: 82728; 83550; 85027; 85046; G0463

== ENCOUNTER 2020-12-15 17:11 | Emergency (ER) | payer MEDICARE, MEDICAID ==
[~2020-12-15] VITALS: Ht 172.7 cm; Wt 100.7 kg
[2020-12-15] MEDS ORDERED: LIDOCAINE 2% 5ML JELLY UROJET TOP ONE (18:05)
[2020-12-15] MEDS ORDERED: MORPHINE 4 MG/ML 1ML VIAL/SYRINGE (J2270) IV ONE ×2 (18:10→19:50)
[2020-12-15] MEDS ORDERED: ONDANSETRON 4MG/2ML VIAL IV ONE (18:10)
[2020-12-15] MEDS ORDERED: NS 1,000 ML IV ONE (18:10)
[2020-12-15 19:05] LABS: ALBUMIN 3.7 GM/DL (3.2-5.2); ALT/SGPT 16 U/L (12-78); BILIRUBIN,DIRECT < 0.1 MG/DL (0.0-0.2); BILIRUBIN,TOTAL 0.3 MG/DL (0.2-1.0); LIPASE 57 U/L (73-393); TOTAL PROTEIN 7.6 GM/DL (6.4-8.2)
[2020-12-15 19:49] LABS: BASO % 0.4 % (0.0-1.0); EOS # 0.1 10^3/uL (0.0-0.5); EOS % 1.2 % (0.0-3.0); HEMATOCRIT 38.3 % (36.0-47.0); HEMOGLOBIN 11.9 g/dl (12.0-15.5); LYMPH % 18.8 % (24.0-44.0); MEAN CORPUSCULAR HEMOGLOBIN 23.9 pg (27.0-33.0); MEAN CORPUSCULAR HGB CONC 31.1 g/dl (32.0-36.5); MEAN CORPUSCULAR VOLUME 77.1 fl (80.0-96.0); MONO # 0.6 10^3/uL (0.0-0.8); MONO % 5.1 % (2.0-8.0); NEUTROPHILS % 74.2 % (36.0-66.0); PLATELET COUNT, AUTOMATED 316 10^3/uL (150-450); RED BLOOD COUNT 4.97 10^6/uL (4.00-5.40); WHITE BLOOD COUNT 10.8 10^3/uL (4.0-10.0)
[2020-12-15] MEDS ORDERED: ISOVUE-370 76% 100ML VIAL As Ordered ONE (19:54)
--- NOTE | 2020-12-15 20:38 | REPVR ---
PROCEDURE INFORMATION: Exam: CT Abdomen And Pelvis With Contrast Exam date and time: 12/15/2020 7:52 PM Age: 30 years old Clinical indication: Abdominal pain; Flank; Right; Additional info: Right flank/abd pain, v with all po TECHNIQUE: Imaging protocol: Computed tomography of the abdomen and pelvis with contrast. Radiation optimization: All CT scans at this facility use at least one of these dose optimization techniques: automated exposure control; mA and/or kV adjustment per patient size (includes targeted exams where dose is matched to clinical indication); or iterative reconstruction. Contrast material: ISOVUE 370; Contrast volume: 100 ml; Contrast route: INTRAVENOUS (IV); COMPARISON: CT ABD/PEL W/PO CONTRAST ONLY 03/02/2017 6:31 AM FINDINGS: Liver: Normal. No mass. Gallbladder and bile ducts: Normal. No calcified stones. No ductal dilation. Pancreas: Normal. No ductal dilation. Spleen: Normal. No splenomegaly. Adrenal glands: Normal. No mass. Kidneys and ureters: Normal. No hydronephrosis. Stomach and bowel: Unremarkable. No obstruction. No mucosal thickening. Appendix: The appendix is within normal limits. There is no appendiceal enlargement, periappendiceal inflammatory changes or abscess. Intraperitoneal space: Unremarkable. No free air. No significant fluid collection. Vasculature: Unremarkable. No abdominal aortic aneurysm. Lymph nodes: Unremarkable. No enlarged lymph nodes. Urinary bladder: Unremarkable as visualized. Reproductive: Unremarkable as visualized. Bones/joints: Mild central spinal stenosis L4-L5. Soft tissues: Unremarkable. IMPRESSION: 1. The appendix is within normal limits. There is no appendiceal enlargement, periappendiceal inflammatory changes or abscess. 2. No acute findings. Electronically signed by: Isauro Banks On 12/15/2020 20:37:56 PM
[2020-12-15] MEDS ORDERED: KETOROLAC 30 MG/ML 1ML VIAL IV ONE (21:25)
[2020-12-15] MEDS ORDERED: DICYCLOMINE 10 MG CAP PO ONE (21:25)
[2020-12-15 21:29] VITALS: BP 133/83
[2020-12-15] MEDS ORDERED: diazePAM 10MG/2ML SYRINGE (J3360 PER 5MG) IV ONE (21:35)
== END 2020-12-15 22:05 | disposition home or self-care (01) ==
LOC: M ED 17:11
DX: R10.9 Unspecified abdominal pain (principal); G80.9 Cerebral palsy, unspecified; Z79.899 Other long term (current) drug therapy; Z88.8 Allergy status to other drugs, medicaments and biological substances; Z91.030 Bee allergy status; Z91.013 Allergy to seafood; Z86.73 Personal history of transient ischemic attack (TIA), and cerebral infarction without residual deficits
CPT/HCPCS: 74177; 80047; 80076; 81001; 83690; 85027; 96374; 96375; 96376; 99284; J1885; J2270; J2405; J3360; Q9967

== ENCOUNTER → 2021-01-18 | Outpatient (REF) | payer MEDICARE, MEDICAID ==
[2021-01-18 13:06] LABS: HEMATOCRIT 36.1 % (36.0-47.0); HEMOGLOBIN 10.9 g/dl (12.0-15.5); MEAN CORPUSCULAR HEMOGLOBIN 23.3 pg (27.0-33.0); MEAN CORPUSCULAR HGB CONC 30.2 g/dl (32.0-36.5); MEAN CORPUSCULAR VOLUME 77.3 fl (80.0-96.0); PLATELET COUNT, AUTOMATED 345 10^3/uL (150-450); RED BLOOD COUNT 4.67 10^6/uL (4.00-5.40); WHITE BLOOD COUNT 10.2 10^3/uL (4.0-10.0)
[2021-01-18 13:48] LABS: ALT/SGPT 19 U/L (12-78); BLOOD UREA NITROGEN 14 MG/DL (7-18); CALCIUM LEVEL 9.3 MG/DL (8.5-10.1); CARBON DIOXIDE LEVEL 25 MEQ/L (21-32); CHLORIDE LEVEL 107 MEQ/L (98-107); CREATININE FOR GFR 0.64 MG/DL (0.55-1.30); GLOMERULAR FILTRATION RATE > 60.0 (>60); GLUCOSE, FASTING 81 MG/DL (70-100); SODIUM LEVEL 139 MEQ/L (136-145)
[2021-01-18 13:49] LABS: ALBUMIN 3.8 GM/DL (3.2-5.2); BILIRUBIN,TOTAL 0.3 MG/DL (0.2-1.0); FERRITIN 5 NG/ML (8-252); FREE T4 1.02 NG/DL (0.76-1.46); IRON (FE) 17 UG/DL (50-170); PERCENT SATURATION 3.4 % (13.2-45.0); TOTAL IRON BINDING CAPACITY 495 UG/DL (250-450); TOTAL PROTEIN 7.4 GM/DL (6.4-8.2)
== END ==
LOC: M SFHCADAM 08:52
PROVIDERS: ATTEND Family Medicine
DX: D50.0 Iron deficiency anemia secondary to blood loss (chronic) (principal); K76.0 Fatty (change of) liver, not elsewhere classified; I48.0 Paroxysmal atrial fibrillation; E55.9 Vitamin D deficiency, unspecified
CPT/HCPCS: 80053; 82306; 82728; 83550; 84439; 84443; 85027; G0463

== ENCOUNTER 2021-02-04 11:42 | Outpatient (CLI) | payer MEDICARE, MEDICAID ==
[~2021-02-04] VITALS: Ht 172.7 cm; Wt 100.0 kg
[~2021-02-04 11:42] MED LIST changes: +ALBUTEROL SULFATE 2.5 MG/0.5 ML INH NEB SOLN INH PRN; +EPINEPHrine INJ 1 MG/ML 1ML AMP IM PRN; +diphenhydrAMINE 50MG/ML VIAL (J1200) IV PRN; +methylPREDNISolone 125MG 2ML VIAL IV PRN
[2021-02-04] MEDS ORDERED: methylPREDNISolone 40MG 1ML VIAL IV ONE (12:00)
[2021-02-04] MEDS ORDERED: IRON SUCROSE 25 MG in NS 25 ML IV ONE (12:00)
[2021-02-04] MEDS ORDERED: diphenhydrAMINE 50MG/ML VIAL (J1200) IV ONE (12:00)
[2021-02-04] MEDS ORDERED: NS 1,000 ML IV SCH (12:00)
[2021-02-04 12:09] VITALS: BP 170/82
[2021-02-04 13:00] VITALS: BP 136/84
[2021-02-04] MEDS ORDERED: IRON SUCROSE 75 MG in NS 75 ML IV ONE (13:00)
[2021-02-04 13:45] VITALS: BP 137/72
[2021-02-04 14:30] VITALS: BP 120/72
[2021-02-04 15:00] VITALS: BP 128/78
== END 2021-02-04 15:00 | disposition home or self-care (01) ==
LOC: M INFU 11:42
PROVIDERS: ATTEND Family Medicine
DX: D50.9 Iron deficiency anemia, unspecified (principal); Z88.8 Allergy status to other drugs, medicaments and biological substances; Z91.030 Bee allergy status; Z91.013 Allergy to seafood; Z88.7 Allergy status to serum and vaccine
CPT/HCPCS: 96365; 96375; J1200; J1756; J2920

== ENCOUNTER 2021-02-11 11:52 | Outpatient (CLI) | payer MEDICARE, MEDICAID ==
[~2021-02-11] VITALS: Ht 172.7 cm; Wt 100.6 kg
[~2021-02-11 11:52] MED LIST changes: -ALBUTEROL SULFATE 2.5 MG/0.5 ML INH NEB SOLN INH PRN; -EPINEPHrine INJ 1 MG/ML 1ML AMP IM PRN; -diphenhydrAMINE 50MG/ML VIAL (J1200) IV PRN; -methylPREDNISolone 125MG 2ML VIAL IV PRN
[2021-02-11 12:00] VITALS: BP 142/68
[2021-02-11] MEDS ORDERED: diphenhydrAMINE 50MG/ML VIAL (J1200) IV ONE (12:00)
[2021-02-11] MEDS ORDERED: IRON SUCROSE 200 MG in NS 200 ML IV ONE (12:00)
[2021-02-11] MEDS ORDERED: methylPREDNISolone 40MG 1ML VIAL IV ONE (12:00)
[2021-02-11] MEDS ORDERED: NS 1,000 ML IV ONE (12:25)
[2021-02-11 14:00] VITALS: BP 137/60
[2021-02-11 15:00] VITALS: BP 135/62
[2021-02-11 16:30] VITALS: BP 145/70
== END 2021-02-11 16:30 | disposition home or self-care (01) ==
LOC: M INFU 11:52
PROVIDERS: ATTEND Family Medicine
DX: D50.9 Iron deficiency anemia, unspecified (principal); Z88.8 Allergy status to other drugs, medicaments and biological substances; Z88.7 Allergy status to serum and vaccine; Z91.030 Bee allergy status
CPT/HCPCS: 96374; J1200; J1756; J2920

== ENCOUNTER 2021-02-18 12:05 | Outpatient (CLI) | payer MEDICARE, MEDICAID ==
[~2021-02-18] VITALS: Ht 172.7 cm; Wt 100.0 kg
[~2021-02-18 12:05] MED LIST changes: +ALBUTEROL SULFATE 2.5 MG/0.5 ML INH NEB SOLN INH PRN; +EPINEPHrine INJ 1 MG/ML 1ML AMP IM PRN; +IRON SUCROSE 200 MG in NS 200 ML IV ONE; +diphenhydrAMINE 50MG/ML VIAL (J1200) IV ONE; +diphenhydrAMINE 50MG/ML VIAL (J1200) IV PRN; +methylPREDNISolone 125MG 2ML VIAL IV PRN; +methylPREDNISolone 40MG 1ML VIAL IV ONE
[2021-02-18 12:10] VITALS: BP 124/84
[2021-02-18 14:28] VITALS: BP 119/64
== END 2021-02-18 14:30 | disposition home or self-care (01) ==
LOC: M INFU 12:05
PROVIDERS: ATTEND Family Medicine
DX: D50.9 Iron deficiency anemia, unspecified (principal); Z88.1 Allergy status to other antibiotic agents; Z88.8 Allergy status to other drugs, medicaments and biological substances; Z88.7 Allergy status to serum and vaccine; Z91.013 Allergy to seafood; Z91.030 Bee allergy status
CPT/HCPCS: 96365; 96375; J1200; J1756; J2920

== ENCOUNTER → 2021-03-10 | Outpatient (CLI) | payer MEDICARE, MEDICAID ==
[~2021-03-10] MED LIST changes: -ALBUTEROL SULFATE 2.5 MG/0.5 ML INH NEB SOLN INH PRN; -EPINEPHrine INJ 1 MG/ML 1ML AMP IM PRN; -IRON SUCROSE 200 MG in NS 200 ML IV ONE; -diphenhydrAMINE 50MG/ML VIAL (J1200) IV ONE; -diphenhydrAMINE 50MG/ML VIAL (J1200) IV PRN; -methylPREDNISolone 125MG 2ML VIAL IV PRN; -methylPREDNISolone 40MG 1ML VIAL IV ONE
== END ==
LOC: M LABSMTC 13:51
PROVIDERS: ATTEND Pediatrics
DX: Z20.822 Contact with and (suspected) exposure to COVID-19 (principal)
CPT/HCPCS: C9803; U0003

== ENCOUNTER → 2021-04-21 | Outpatient (REF) | payer MEDICARE, MEDICAID ==
[2021-04-21 11:52] LABS: ALBUMIN 3.5 GM/DL (3.2-5.2); ALT/SGPT 26 U/L (12-78); BILIRUBIN,TOTAL 0.3 MG/DL (0.2-1.0); BLOOD UREA NITROGEN 9 MG/DL (7-18); CALCIUM LEVEL 8.6 MG/DL (8.5-10.1); CARBON DIOXIDE LEVEL 24 MEQ/L (21-32); CHLORIDE LEVEL 105 MEQ/L (98-107); CREATININE FOR GFR 0.66 MG/DL (0.55-1.30); FERRITIN 10 NG/ML (8-252); FREE T4 1.03 NG/DL (0.76-1.46); GLOMERULAR FILTRATION RATE > 60.0 (>60); GLUCOSE, FASTING 81 MG/DL (70-100); IRON (FE) 29 UG/DL (50-170); PERCENT SATURATION 7.1 % (13.2-45.0); POTASSIUM SERUM 3.5 MEQ/L (3.5-5.1); SODIUM LEVEL 140 MEQ/L (136-145); TOTAL IRON BINDING CAPACITY 410 UG/DL (250-450); TOTAL PROTEIN 7.1 GM/DL (6.4-8.2)
[2021-04-21 11:56] LABS: HEMATOCRIT 41.1 % (36.0-47.0); HEMOGLOBIN 13.2 g/dl (12.0-15.5); MEAN CORPUSCULAR HEMOGLOBIN 26.1 pg (27.0-33.0); MEAN CORPUSCULAR HGB CONC 32.1 g/dl (32.0-36.5); MEAN CORPUSCULAR VOLUME 81.4 fl (80.0-96.0); PLATELET COUNT, AUTOMATED 326 10^3/uL (150-450); RED BLOOD COUNT 5.05 10^6/uL (4.00-5.40); WHITE BLOOD COUNT 11.1 10^3/uL (4.0-10.0)
== END ==
LOC: M SFHCADAM 08:59
PROVIDERS: ATTEND Family Medicine
DX: Z86.2 Personal history of diseases of the blood and blood-forming organs and certain disorders involving the immune mechanism (principal); D50.0 Iron deficiency anemia secondary to blood loss (chronic); C73 Malignant neoplasm of thyroid gland
CPT/HCPCS: 80053; 82728; 83550; 84439; 84443; 85027; 85046; G0463

== ENCOUNTER → 2021-04-28 | Outpatient (CLI) | payer MEDICARE, MEDICAID ==
--- NOTE | 2021-04-28 15:15 | REP ---
INDICATION: THYROID CA. COMPARISON: 09/16/2015. TECHNIQUE: Real-time sonographic evaluation of thyroid performed. FINDINGS: Since the prior study the patient has had a right thyroidectomy. No mass is seen in the right thyroid bed. Left lobe measures 4.2 x 1.7 x 1.4 cm. There is a cyst in the lower pole which measures 1.1 x 0.5 x 0.6 cm. IMPRESSION: Status post right thyroidectomy. Cyst lower pole left lobe of thyroid 1.1 cm. <Electronically signed by Lyndon Tony > 04/28/21 [id number]
== END ==
LOC: M RAD 13:53
PROVIDERS: ATTEND Family Medicine
DX: C73 Malignant neoplasm of thyroid gland (principal)

== ENCOUNTER 2021-05-09 10:14 | Outpatient (RCR) | payer MEDICARE, MEDICAID | END 2021-06-05 | LOC: M PT 10:14 | PROVIDERS: ATTEND Physical Medicine & Rehabilitation | DX: G80.1 Spastic diplegic cerebral palsy (principal) ==

== ENCOUNTER 2022-02-03 03:53 | Emergency (ER) | payer MEDICARE, MEDICAID ==
[~2022-02-03] VITALS: Ht 172.7 cm; Wt 82.0 kg
[~2022-02-03 03:53] MED LIST changes: -FLUC150T PO; +FLUC150T9 PO; +FLUO-96 PO; -FLUO20CA20 PO
[2022-02-03 03:54] VITALS: BP 118/71
[2022-02-03] MEDS ORDERED: PENT10CA PO (04:01)
[2022-02-03] MEDS ORDERED: MACR100C43 PO (04:01)
[2022-02-03 05:36] LABS: BASO # 0.1 10^3/uL (0.0-0.2); BASO % 0.7 % (0.0-1.0); EOS # 0.3 10^3/uL (0.0-0.5); HEMATOCRIT 42.5 % (36.0-47.0); HEMOGLOBIN 14.2 g/dl (12.0-15.5); LYMPH % 36.1 % (24.0-44.0); MEAN CORPUSCULAR HEMOGLOBIN 29.4 pg (27.0-33.0); MEAN CORPUSCULAR HGB CONC 33.4 g/dl (32.0-36.5); MONO # 0.8 10^3/uL (0.0-0.8); NEUTROPHILS # 5.8 10^3/uL (1.5-8.5); NEUTROPHILS % 52.7 % (36.0-66.0); PLATELET COUNT, AUTOMATED 305 10^3/uL (150-450); RED BLOOD COUNT 4.83 10^6/uL (4.00-5.40)
[2022-02-03 06:00] LABS: HCG, SERUM QUALITATIVE NEGATIVE (NEGATIVE)
[2022-02-03] MEDS ORDERED: NS 1,000 ML IV ONE (06:00)
[2022-02-03 06:18] LABS: ALBUMIN 3.7 GM/DL (3.2-5.2); ALT/SGPT 16 U/L (12-78); BILIRUBIN,TOTAL 0.3 MG/DL (0.2-1.0); BLOOD UREA NITROGEN 11 MG/DL (7-18); CALCIUM LEVEL 9.4 MG/DL (8.5-10.1); CARBON DIOXIDE LEVEL 24 MEQ/L (21-32); CHLORIDE LEVEL 109 MEQ/L (98-107); CREATININE FOR GFR 0.72 MG/DL (0.55-1.30); GLOMERULAR FILTRATION RATE > 60.0 (>60); GLUCOSE, FASTING 95 MG/DL (70-100); MAGNESIUM LEVEL 2.3 MG/DL (1.8-2.4); POTASSIUM SERUM 4.4 MEQ/L (3.5-5.1); SODIUM LEVEL 139 MEQ/L (136-145)
[2022-02-03] MEDS ORDERED: ACETAMINOPHEN 325 MG TAB PO ONE (07:00)
== END 2022-02-03 07:41 | disposition home or self-care (01) ==
LOC: M ED 03:53
DX: R10.9 Unspecified abdominal pain (principal); R30.0 Dysuria; Z91.013 Allergy to seafood; Z91.030 Bee allergy status; Z88.7 Allergy status to serum and vaccine

== ENCOUNTER → 2022-03-20 | Outpatient (CLI) | payer MEDICARE, MEDICAID ==
[~2022-03-20] MED LIST changes: +PENT10CA PO
== END ==
LOC: M ADAMS 11:54
PROVIDERS: ATTEND Nurse Practitioner Family
DX: M46.1 Sacroiliitis, not elsewhere classified (principal)

== ENCOUNTER → 2022-04-05 | Outpatient (CLI) | payer MEDICARE, MEDICAID | LOC: M RAD 14:53 | PROVIDERS: ATTEND Nurse Practitioner Family | DX: M51.26 Other intervertebral disc displacement, lumbar region (principal) ==

== ENCOUNTER 2022-06-18 18:24 | Emergency (ER) | payer MEDICARE, MEDICAID ==
[2022-06-18] MEDS: MORPHINE 2 MG/ML 1ML VIAL IV PRN ×2 (19:34→20:34)
[2022-06-18 19:37] LABS: BASO # 0.1 10^3/uL (0.0-0.2); BASO % 0.6 % (0.0-1.0); EOS # 0.4 10^3/uL (0.0-0.5); EOS % 3.5 % (0.0-3.0); HEMOGLOBIN 13.5 g/dl (12.0-15.5); LYMPH % 32.2 % (24.0-44.0); MEAN CORPUSCULAR HEMOGLOBIN 28.8 pg (27.0-33.0); MEAN CORPUSCULAR HGB CONC 32.9 g/dl (32.0-36.5); MEAN CORPUSCULAR VOLUME 87.6 fl (80.0-96.0); MONO # 0.8 10^3/uL (0.0-0.8); MONO % 6.3 % (2.0-8.0); NEUTROPHILS # 7.1 10^3/uL (1.5-8.5); PLATELET COUNT, AUTOMATED 301 10^3/uL (150-450); RED BLOOD COUNT 4.68 10^6/uL (4.00-5.40); WHITE BLOOD COUNT 12.4 10^3/uL (4.0-10.0)
[2022-06-18] MEDS ORDERED: ONDANSETRON 4MG 2ML VIAL As Ordered ONE (19:42)
[2022-06-18] MEDS ORDERED: ONDANSETRON 4MG 2ML VIAL IV ONE (20:00)
[2022-06-18 20:02] LABS: INR 0.91; PARTIAL THROMBOPLASTIN TIME 26.8 SECONDS (24.8-34.2); PROTHROMBIN TIME 12.4 SECONDS (12.5-14.5)
[2022-06-18 20:17] LABS: ALBUMIN 3.4 GM/DL (3.2-5.2); ALT/SGPT 26 U/L (12-78); BILIRUBIN,DIRECT < 0.1 MG/DL (0.0-0.2); BILIRUBIN,TOTAL 0.2 MG/DL (0.2-1.0); BLOOD UREA NITROGEN 14 MG/DL (7-18); CALCIUM LEVEL 8.7 MG/DL (8.5-10.1); CARBON DIOXIDE LEVEL 22 MEQ/L (21-32); CHLORIDE LEVEL 108 MEQ/L (98-107); CK-MB VALUE MASS < 1.0 NG/ML (<3.6); CPK CREATINE PHOSPHOKINASE 67 U/L (26-192); CREATININE FOR GFR 0.68 MG/DL (0.55-1.30); GLOMERULAR FILTRATION RATE > 60.0 (>60); GLUCOSE, FASTING 92 MG/DL (70-100); LIPASE 117 U/L (73-393); MB/CK RELATIVE INDEX 1.49 (< OR =4); NT-PRO BNP 76 PG/ML (<125); SODIUM LEVEL 138 MEQ/L (136-145); TOTAL PROTEIN 7.2 GM/DL (6.4-8.2)
[2022-06-18] MEDS ORDERED: ISOVUE-370 76% 100ML VIAL As Ordered ONE (20:48)
[2022-06-18 21:37] LABS: CK-MB VALUE MASS < 1.0 NG/ML (<3.6); CPK CREATINE PHOSPHOKINASE 57 U/L (26-192); MB/CK RELATIVE INDEX 1.75 (< OR =4)
[2022-06-18 22:19] VITALS: BP 124/88
== END 2022-06-18 22:21 | disposition home or self-care (01) ==
LOC: M ED 18:24
DX: R07.9 Chest pain, unspecified (principal); M54.2 Cervicalgia; R20.0 Anesthesia of skin; K21.9 Gastro-esophageal reflux disease without esophagitis; K58.9 Irritable bowel syndrome, unspecified; F33.9 Major depressive disorder, recurrent, unspecified; Z86.73 Personal history of transient ischemic attack (TIA), and cerebral infarction without residual deficits; Z95.0 Presence of cardiac pacemaker; Z91.030 Bee allergy status; Z91.013 Allergy to seafood; Z88.7 Allergy status to serum and vaccine; Z88.1 Allergy status to other antibiotic agents; Z79.899 Other long term (current) drug therapy
CPT/HCPCS: 70498; 71045; 71275; 80048; 80076; 82550; 82553; 83690; 83880; 84484; 85025; 85610; 85730; 93005; 93041; 94760; 96374; 96375; 96376; 99285; J2270; J2405; Q9967

== ENCOUNTER 2022-06-29 16:56 | Emergency (ER) | payer MEDICARE, MEDICAID ==
[~2022-06-29] VITALS: Ht 172.7 cm; Wt 78.6 kg
[2022-06-29] MEDS ORDERED: MORPHINE 4 MG/ML 1ML VIAL IV ONE (18:20)
[2022-06-29] MEDS ORDERED: ONDANSETRON 4MG 2ML VIAL IV ONE (18:30)
[2022-06-29 18:59] LABS: BASO # 0.1 10^3/uL (0.0-0.2); EOS % 0.2 % (0.0-3.0); HEMATOCRIT 42.2 % (36.0-47.0); LYMPH # 0.3 10^3/uL (1.5-5.0); LYMPH % 6.8 % (24.0-44.0); MEAN CORPUSCULAR HEMOGLOBIN 28.5 pg (27.0-33.0); MEAN CORPUSCULAR HGB CONC 33.2 g/dl (32.0-36.5); MEAN CORPUSCULAR VOLUME 85.8 fl (80.0-96.0); MONO # 0.6 10^3/uL (0.0-0.8); MONO % 12.5 % (2.0-8.0); NEUTROPHILS # 3.9 10^3/uL (1.5-8.5); NEUTROPHILS % 79.1 % (36.0-66.0); PLATELET COUNT, AUTOMATED 234 10^3/uL (150-450); RED BLOOD COUNT 4.92 10^6/uL (4.00-5.40)
[2022-06-29 19:13] LABS: PROTHROMBIN TIME 13.4 SECONDS (12.5-14.5)
[2022-06-29 19:31] LABS: ALBUMIN 3.9 G/DL (3.2-5.2); ALT/SGPT 30 U/L (7.0-40); BILIRUBIN,DIRECT < 0.1 MG/DL (<0.4); BILIRUBIN,TOTAL 0.3 MG/DL (0.3-1.2); BLOOD UREA NITROGEN 13 MG/DL (9-23); CALCIUM LEVEL 8.8 MG/DL (8.5-10.1); CARBON DIOXIDE LEVEL 20 MMOL/L (20-31); CHLORIDE LEVEL 104 MMOL/L (98-107); CK-MB VALUE MASS < 1.0 NG/ML (<3.6); CPK CREATINE PHOSPHOKINASE 115 U/L (34-145); CREATININE FOR GFR 0.65 MG/DL (0.55-1.30); FREE T4 1.01 NG/DL (0.89-1.76); GLOMERULAR FILTRATION RATE > 60.0 (>60); GLUCOSE, FASTING 94 MG/DL (60-100); IRON (FE) 5 UG/DL (50-170); LIPASE 21 U/L (12-53); MB/CK RELATIVE INDEX 0.86 (< OR =4); SODIUM LEVEL 137 MMOL/L (136-145); THYROID STIMULATING HORMONE 1.021 uIU/ML (0.55-4.78); TOTAL PROTEIN 7.6 G/DL (5.7-8.2)
[2022-06-29] MEDS ORDERED: LIDOCAINE 2% 5ML JELLY UROJET As Ordered ONE (19:52)
[2022-06-29] MEDS ORDERED: LIDOCAINE 2% 5ML JELLY UROJET TOP ONE (19:55)
[2022-06-29] MEDS ORDERED: KETOROLAC 30 MG/ML 1ML VIAL IV ONE (20:40)
[2022-06-29] MEDS ORDERED: OSELTAMIVIR PHOSPHATE 75 MG CAP (TAMIFLU) PO ONE (21:30)
[2022-06-29] MEDS ORDERED: OSEL75CA PO (21:30)
[2022-06-29 22:02] VITALS: BP 135/92
== END 2022-06-29 22:08 | disposition home or self-care (01) ==
LOC: M ED 16:56
DX: J09.X9 Influenza due to identified novel influenza A virus with other manifestations (principal); M79.10 Myalgia, unspecified site; I48.91 Unspecified atrial fibrillation; G47.33 Obstructive sleep apnea (adult) (pediatric); D50.9 Iron deficiency anemia, unspecified; G80.9 Cerebral palsy, unspecified; K76.0 Fatty (change of) liver, not elsewhere classified; E55.9 Vitamin D deficiency, unspecified; F32.A Depression, unspecified; Z95.0 Presence of cardiac pacemaker; E04.9 Nontoxic goiter, unspecified; N30.10 Interstitial cystitis (chronic) without hematuria; Z88.8 Allergy status to other drugs, medicaments and biological substances; Z91.030 Bee allergy status; Z91.013 Allergy to seafood; Z79.899 Other long term (current) drug therapy
CPT/HCPCS: 51701; 71046; 80048; 80076; 81000; 82550; 82553; 83540; 83690; 84439; 84443; 84484; 85025; 85610; 85730; 87086; 87486; 87581; 87633; 87798; 93005; 93041; 94760; 96374; 96375; 99284; J1885; J2270; J2405

== ENCOUNTER → 2022-11-14 | Outpatient (REF) | payer MEDICARE, MEDICAID ==
[~2022-11-14] MED LIST changes: +OSEL75CA PO
[2022-11-14 15:00] LABS: THYROID STIMULATING HORMONE 1.057 uIU/ML (0.55-4.78)
[2022-11-14 15:01] LABS: FREE T4 0.83 NG/DL (0.89-1.76)
== END ==
LOC: M SFHCADAM 09:25
PROVIDERS: ATTEND Family Medicine
DX: E34.9 Endocrine disorder, unspecified (principal)

== ENCOUNTER → 2022-12-01 | Outpatient (REF) | payer MEDICARE, MEDICAID ==
[2022-12-01 13:16] LABS: BASO # 0.1 10^3/uL (0.0-0.2); BASO % 0.8 % (0.0-1.0); BLOOD UREA NITROGEN 14 MG/DL (9-23); CALCIUM LEVEL 8.8 MG/DL (8.5-10.1); CARBON DIOXIDE LEVEL 25 MMOL/L (20-31); CHLORIDE LEVEL 107 MMOL/L (98-107); EOS # 0.4 10^3/uL (0.0-0.5); EOS % 3.5 % (0.0-3.0); GLOMERULAR FILTRATION RATE > 60.0 (>60); GLUCOSE, FASTING 84 MG/DL (60-100); HEMATOCRIT 39.8 % (36.0-47.0); HEMOGLOBIN 12.5 g/dl (12.0-15.5); LYMPH # 2.9 10^3/uL (1.5-5.0); LYMPH % 29.3 % (24.0-44.0); MEAN CORPUSCULAR HEMOGLOBIN 26.1 pg (27.0-33.0); MEAN CORPUSCULAR HGB CONC 31.4 g/dl (32.0-36.5); MEAN CORPUSCULAR VOLUME 83.1 fl (80.0-96.0); MONO # 0.7 10^3/uL (0.0-0.8); MONO % 6.8 % (2.0-8.0); NEUTROPHILS % 59.4 % (36.0-66.0); PLATELET COUNT, AUTOMATED 331 10^3/uL (150-450); POTASSIUM SERUM 3.9 MMOL/L (3.5-5.1); RED BLOOD COUNT 4.79 10^6/uL (4.00-5.40); SODIUM LEVEL 138 MMOL/L (136-145)
[2022-12-01 13:17] LABS: IRON (FE) 31 UG/DL (50-170); PERCENT SATURATION 7.2 % (13.2-45.0); TOTAL IRON BINDING CAPACITY 429 UG/DL (250-425)
[2022-12-01 13:21] LABS: FERRITIN 5.9 NG/ML (7.3-270.7)
[2022-12-01 13:22] LABS: TOTAL 25(OH) VITAMIN D 23.5 NG/ML (20.0-100.0)
[2022-12-01 13:23] LABS: VITAMIN B12 LEVEL 341 PG/ML (211-911)
[2022-12-01 13:24] LABS: FOLATE 14.7 NG/ML (>5.4)
== END ==
LOC: M SFHCADAM 09:41
PROVIDERS: ATTEND Physician Assistant
DX: L08.9 Local infection of the skin and subcutaneous tissue, unspecified (principal); N39.0 Urinary tract infection, site not specified; D50.0 Iron deficiency anemia secondary to blood loss (chronic); E55.9 Vitamin D deficiency, unspecified

== ENCOUNTER → 2023-02-15 | Outpatient (CLI) | payer MEDICARE, MEDICAID ==
[~2023-02-15] MED LIST changes: +ADV100INH; +ASCO500C3 PO; +BACL1TAB9; +DILT180C39 PO; -DILT1CAP4 PO; +EPIN0.3I11; +FERR325T19; +FLUC150T9; +FLUO10CA18; +HIBI4LIQ EX; +HYDR-3363; +IBUP80TA; +MULT-90 PO; +ONDA-195 PO; +TINI1TAB5 PO; +medical marijuana
== END ==
LOC: M PAL 14:19
PROVIDERS: ATTEND Nurse Practitioner Adult Health
DX: G62.9 Polyneuropathy, unspecified (principal); G80.2 Spastic hemiplegic cerebral palsy; F32.A Depression, unspecified; Z51.5 Encounter for palliative care; Q65.89 Other specified congenital deformities of hip; Z85.850 Personal history of malignant neoplasm of thyroid; Z90.89 Acquired absence of other organs; K58.9 Irritable bowel syndrome, unspecified; N30.10 Interstitial cystitis (chronic) without hematuria; M51.26 Other intervertebral disc displacement, lumbar region; Z95.0 Presence of cardiac pacemaker; I44.2 Atrioventricular block, complete; I48.91 Unspecified atrial fibrillation; Z88.7 Allergy status to serum and vaccine; Z88.8 Allergy status to other drugs, medicaments and biological substances; Z88.1 Allergy status to other antibiotic agents; Z91.013 Allergy to seafood; Z91.030 Bee allergy status; Z79.899 Other long term (current) drug therapy; Z79.51 Long term (current) use of inhaled steroids; Z99.3 Dependence on wheelchair

== ENCOUNTER 2023-09-17 23:04 | Emergency (ER) | payer MEDICARE, MEDICAID ==
[~2023-09-17] VITALS: Ht 172.7 cm; Wt 85.0 kg
[2023-09-18 00:08] LABS: BASO # 0.1 10^3/uL (0.0-0.2); BASO % 0.8 % (0.0-1.0); EOS # 0.4 10^3/uL (0.0-0.5); EOS % 4.2 % (0.0-3.0); HEMATOCRIT 37.9 % (36.0-47.0); HEMOGLOBIN 12.5 g/dl (12.0-15.5); LYMPH # 3.1 10^3/uL (1.5-5.0); MEAN CORPUSCULAR HEMOGLOBIN 28.5 pg (27.0-33.0); MEAN CORPUSCULAR VOLUME 86.5 fl (80.0-96.0); MONO # 0.7 10^3/uL (0.0-0.8); MONO % 8.2 % (2.0-8.0); NEUTROPHILS # 4.2 10^3/uL (1.5-8.5); NEUTROPHILS % 49.7 % (36.0-66.0); PLATELET COUNT, AUTOMATED 267 10^3/uL (150-450); RED BLOOD COUNT 4.38 10^6/uL (4.00-5.40); WHITE BLOOD COUNT 8.5 10^3/uL (4.0-10.0)
[2023-09-18 00:17] LABS: INR 0.96; PROTHROMBIN TIME 12.5 SECONDS (12.5-14.5)
[2023-09-18 00:29] LABS: LIPASE 24 U/L (12-53)
[2023-09-18 00:43] LABS: ALBUMIN 3.1 G/DL (3.2-5.2); ALKALINE PHOSPHATASE 80 U/L (46-116); ALT/SGPT 15 U/L (7.0-40); AST/SGOT 35 U/L (<34); BILIRUBIN,DIRECT < 0.1 MG/DL (<0.4); BILIRUBIN,TOTAL 0.2 MG/DL (0.3-1.2); BLOOD UREA NITROGEN 13 MG/DL (9-23); CALCIUM LEVEL 8.2 MG/DL (8.5-10.1); CARBON DIOXIDE LEVEL 24 MMOL/L (20-31); CHLORIDE LEVEL 106 MMOL/L (98-107); CK-MB VALUE MASS < 1.0 NG/ML (<3.6); CPK CREATINE PHOSPHOKINASE 49 U/L (34-145); CREATININE FOR GFR 0.58 MG/DL (0.55-1.30); GLOMERULAR FILTRATION RATE > 60.0 (>60); GLUCOSE, FASTING 108 MG/DL (60-100); MB/CK RELATIVE INDEX 2.04 (< OR =4); POTASSIUM SERUM 4.8 MMOL/L (3.5-5.1); SODIUM LEVEL 136 MMOL/L (136-145); TOTAL PROTEIN 6.5 G/DL (5.7-8.2)
[2023-09-18] MEDS ORDERED: ISOVUE-370 76% 100ML VIAL As Ordered ONE (00:50)
[2023-09-18] MEDS: MORPHINE 4 MG/ML 1ML VIAL IV ONE (00:52)
[2023-09-18 01:22] LABS: C REACTIVE PROTEIN QUANTITATIV < 0.40 MG/DL (<1.0)
[2023-09-18] MEDS ORDERED: ACET300T48 PO (02:24)
[2023-09-18 02:30] VITALS: BP 106/62; TEMP 98.9; O2SAT 98
== END 2023-09-18 02:40 | disposition home or self-care (01) ==
LOC: M ED 23:04 → EDBD 23:04 → M ED 09-18 02:40
DX: M94.0 Chondrocostal junction syndrome [Tietze] (principal); K21.9 Gastro-esophageal reflux disease without esophagitis; J45.909 Unspecified asthma, uncomplicated; F32.A Depression, unspecified; G80.9 Cerebral palsy, unspecified; Z79.899 Other long term (current) drug therapy; Z88.7 Allergy status to serum and vaccine; Z91.013 Allergy to seafood; Z88.8 Allergy status to other drugs, medicaments and biological substances; Z91.030 Bee allergy status
CPT/HCPCS: 71045; 71260; 80053; 82248; 82550; 82553; 83690; 84484; 85025; 85610; 86140; 93005; 93041; 94760; 96374; 99285; Q9967

== ENCOUNTER 2023-11-05 07:27 | Emergency (ER) | payer MEDICARE, MEDICAID ==
[~2023-11-05] VITALS: Ht 172.7 cm; Wt 96.2 kg
[~2023-11-05 07:27] MED LIST changes: +ACET300T48 PO
[2023-11-05] MEDS: MORPHINE 4 MG/ML 1ML VIAL IV PRN (08:23)
[2023-11-05 09:00] LABS: C REACTIVE PROTEIN QUANTITATIV < 0.40 MG/DL (<1.0)
[2023-11-05 09:02] LABS: BLOOD UREA NITROGEN 13 MG/DL (9-23); CALCIUM LEVEL 9.3 MG/DL (8.5-10.1); CARBON DIOXIDE LEVEL 24 MMOL/L (20-31); CHLORIDE LEVEL 108 MMOL/L (98-107); CREATININE FOR GFR 0.59 MG/DL (0.55-1.30); GLOMERULAR FILTRATION RATE > 60.0 (>60); GLUCOSE, FASTING 84 MG/DL (60-100); POTASSIUM SERUM 4.1 MMOL/L (3.5-5.1); SODIUM LEVEL 135 MMOL/L (136-145)
[2023-11-05 09:13] LABS: BASO # 0.1 10^3/uL (0.0-0.2); BASO % 0.8 % (0.0-1.0); EOS # 0.4 10^3/uL (0.0-0.5); EOS % 3.8 % (0.0-3.0); HEMATOCRIT 40.3 % (36.0-47.0); HEMOGLOBIN 13.1 g/dl (12.0-15.5); LYMPH # 3.1 10^3/uL (1.5-5.0); LYMPH % 26.9 % (24.0-44.0); MEAN CORPUSCULAR HEMOGLOBIN 27.2 pg (27.0-33.0); MEAN CORPUSCULAR HGB CONC 32.5 g/dl (32.0-36.5); MEAN CORPUSCULAR VOLUME 83.8 fl (80.0-96.0); MONO # 0.9 10^3/uL (0.0-0.8); MONO % 8.2 % (2.0-8.0); NEUTROPHILS # 6.9 10^3/uL (1.5-8.5); PLATELET COUNT, AUTOMATED 331 10^3/uL (150-450); RED BLOOD COUNT 4.81 10^6/uL (4.00-5.40); WHITE BLOOD COUNT 11.4 10^3/uL (4.0-10.0)
[2023-11-05 09:30] LABS: ERYTHROCYTE SEDIMENTATION RATE 66 mm/hr (0-20)
[2023-11-05] MEDS: PERCOCET 5MG/325MG TAB PO ONE (10:00)
[2023-11-05] MEDS ORDERED: CLIN-250 PO (11:05)
[2023-11-05 11:51] VITALS: BP 147/82; TEMP 98; O2SAT 98
== END 2023-11-05 11:54 | disposition home or self-care (01) ==
LOC: M ED 08:55
DX: R07.9 Chest pain, unspecified (principal); I50.22 Chronic systolic (congestive) heart failure; I48.91 Unspecified atrial fibrillation; Z95.0 Presence of cardiac pacemaker; Z88.7 Allergy status to serum and vaccine; Z88.8 Allergy status to other drugs, medicaments and biological substances; Z91.030 Bee allergy status; Z91.013 Allergy to seafood; Z79.1 Long term (current) use of non-steroidal anti-inflammatories (NSAID); Z79.2 Long term (current) use of antibiotics; Z79.810 Long term (current) use of selective estrogen receptor modulators (SERMs); Z79.899 Other long term (current) drug therapy

== ENCOUNTER → 2024-03-20 | Outpatient (CLI) | payer MEDICARE, MEDICAID ==
[~2024-03-20] MED LIST changes: +CLIN-250 PO; +FLUO-290; -FLUO10CA18
== END ==
LOC: M PAL 09:11
PROVIDERS: ATTEND Nurse Practitioner Adult Health
DX: G62.9 Polyneuropathy, unspecified (principal); G80.2 Spastic hemiplegic cerebral palsy; F32.A Depression, unspecified; Q65.89 Other specified congenital deformities of hip; K58.9 Irritable bowel syndrome, unspecified; N30.10 Interstitial cystitis (chronic) without hematuria; M51.26 Other intervertebral disc displacement, lumbar region; I44.2 Atrioventricular block, complete; R29.6 Repeated falls; Z51.5 Encounter for palliative care; Z85.850 Personal history of malignant neoplasm of thyroid; Z95.0 Presence of cardiac pacemaker; I48.91 Unspecified atrial fibrillation; Z86.16 Personal history of COVID-19; Z87.59 Personal history of other complications of pregnancy, childbirth and the puerperium; Z88.1 Allergy status to other antibiotic agents; Z88.8 Allergy status to other drugs, medicaments and biological substances; Z88.7 Allergy status to serum and vaccine; Z91.013 Allergy to seafood; Z91.030 Bee allergy status; Z79.51 Long term (current) use of inhaled steroids; Z79.899 Other long term (current) drug therapy; Z99.3 Dependence on wheelchair; Z90.89 Acquired absence of other organs

== ENCOUNTER → 2024-06-03 | Outpatient (REF) | payer MEDICARE, MEDICAID ==
[2024-06-03 13:46] LABS: HEMATOCRIT 35.4 % (36.0-47.0); HEMOGLOBIN 11.1 g/dl (12.0-15.5); MEAN CORPUSCULAR HEMOGLOBIN 24.4 pg (27.0-33.0); MEAN CORPUSCULAR HGB CONC 31.4 g/dl (32.0-36.5); PLATELET COUNT, AUTOMATED 260 10^3/uL (150-450); RED BLOOD COUNT 4.54 10^6/uL (4.00-5.40)
[2024-06-03 14:17] LABS: ALBUMIN 3.2 G/DL (3.2-5.2); ALKALINE PHOSPHATASE 94 U/L (35-104); ALT/SGPT 22 U/L (7.0-40); AST/SGOT 35 U/L (<34); BILIRUBIN,TOTAL 0.3 MG/DL (0.3-1.2); BLOOD UREA NITROGEN 13 MG/DL (9-23); CARBON DIOXIDE LEVEL 24 MMOL/L (20-31); CHLORIDE LEVEL 109 MMOL/L (98-107); CHOLESTEROL LEVEL 234 MG/DL (<200); CHOLESTEROL RISK RATIO 3.78 (<5); CREATININE FOR GFR 0.54 MG/DL (0.55-1.30); GLOMERULAR FILTRATION RATE > 60.0 (>60); GLUCOSE, FASTING 79 MG/DL (60-100); HDL CHOLESTEROL 61.8 MG/DL (>40); IRON (FE) 19 UG/DL (50-170); LDL CHOLESTEROL 152.4 MG/DL (<100); MAGNESIUM LEVEL 1.9 MG/DL (1.8-2.4); NON-HDL-C 172.2 MG/DL; PERCENT SATURATION 4.1 % (13.2-45.0); POTASSIUM SERUM 4.1 MMOL/L (3.5-5.1); SODIUM LEVEL 137 MMOL/L (136-145); TOTAL IRON BINDING CAPACITY 458 UG/DL (250-425); TOTAL PROTEIN 6.8 G/DL (5.7-8.2); TRIGLYCERIDES LEVEL 99 MG/DL (<150)
[2024-06-03 14:21] LABS: FREE T4 0.95 NG/DL (0.89-1.76); THYROID STIMULATING HORMONE 1.539 uIU/ML (0.55-4.78)
[2024-06-03 14:22] LABS: FERRITIN 6.1 NG/ML (7.3-270.7)
[2024-06-03 14:24] LABS: VITAMIN B12 LEVEL 389 PG/ML (211-911)
== END ==
LOC: M SFHCADAM 10:59
PROVIDERS: ATTEND Family Medicine
DX: N76.0 Acute vaginitis (principal); I48.0 Paroxysmal atrial fibrillation; Z13.1 Encounter for screening for diabetes mellitus; R53.83 Other fatigue; E78.00 Pure hypercholesterolemia, unspecified

== ENCOUNTER 2024-06-23 23:14 | Emergency (ER) | payer MEDICARE, MEDICAID ==
[~2024-06-23] VITALS: Ht 172.7 cm; Wt 81.2 kg
[2024-06-23 23:41] LABS: BASO % 0.2 % (0.0-1.0); EOS # 0.2 10^3/uL (0.0-0.5); EOS % 1.6 % (0.0-3.0); HEMATOCRIT 38.2 % (36.0-47.0); HEMOGLOBIN 12.3 g/dl (12.0-15.5); LYMPH # 1.8 10^3/uL (1.5-5.0); LYMPH % 14.1 % (24.0-44.0); MEAN CORPUSCULAR HEMOGLOBIN 23.8 pg (27.0-33.0); MEAN CORPUSCULAR HGB CONC 32.2 g/dl (32.0-36.5); MEAN CORPUSCULAR VOLUME 73.9 fl (80.0-96.0); MONO # 1.1 10^3/uL (0.0-0.8); MONO % 8.8 % (2.0-8.0); NEUTROPHILS # 9.6 10^3/uL (1.5-8.5); NEUTROPHILS % 74.6 % (36.0-66.0); PLATELET COUNT, AUTOMATED 338 10^3/uL (150-450); RED BLOOD COUNT 5.17 10^6/uL (4.00-5.40); WHITE BLOOD COUNT 12.9 10^3/uL (4.0-10.0)
[2024-06-24] MEDS: ONDANSETRON 4MG 2ML VIAL IV ONE (00:04)
[2024-06-24] MEDS: MORPHINE 4 MG/ML 1ML VIAL IV PRN (00:04)
[2024-06-24 00:08] LABS: BLOOD UREA NITROGEN 11 MG/DL (9-23); CALCIUM LEVEL 8.9 MG/DL (8.5-10.1); CARBON DIOXIDE LEVEL 20 MMOL/L (20-31); CHLORIDE LEVEL 106 MMOL/L (98-107); CK-MB VALUE MASS < 1.0 NG/ML (<3.6); CREATININE FOR GFR 0.57 MG/DL (0.55-1.30); GLOMERULAR FILTRATION RATE > 60.0 (>60); GLUCOSE, FASTING 109 MG/DL (60-100); POTASSIUM SERUM 3.4 MMOL/L (3.5-5.1); SODIUM LEVEL 136 MMOL/L (136-145)
[2024-06-24 00:10] LABS: THYROID STIMULATING HORMONE 1.103 uIU/ML (0.55-4.78)
[2024-06-24 00:15] LABS: CPK CREATINE PHOSPHOKINASE 43 U/L (34-145); MB/CK RELATIVE INDEX 2.32 (< OR =4)
[2024-06-24] MEDS ORDERED: ISOVUE-370 76% 100ML VIAL As Ordered ONE (00:27)
[2024-06-24 00:39] LABS: MAGNESIUM LEVEL 1.7 MG/DL (1.8-2.4)
[2024-06-24] MEDS ORDERED: LORazepam 2 MG/ML 1ML VIAL IV STA (02:28)
[2024-06-24] MEDS: KETOROLAC 30 MG/ML 1ML VIAL IV ONE (02:41)
[2024-06-24] MEDS: PROMETHAZINE 25MG/ML 1ML VIAL IV ONE (05:17)
[2024-06-24 06:39] VITALS: BP 124/58; TEMP 98.1; O2SAT 98
== END 2024-06-24 06:53 | disposition home or self-care (01) ==
LOC: EDBD 23:14 → M ED 23:14
DX: R55 Syncope and collapse (principal); I48.91 Unspecified atrial fibrillation; Z88.7 Allergy status to serum and vaccine; Z91.030 Bee allergy status; Z88.8 Allergy status to other drugs, medicaments and biological substances; Z88.1 Allergy status to other antibiotic agents; Z91.013 Allergy to seafood; Z79.1 Long term (current) use of non-steroidal anti-inflammatories (NSAID); Z79.2 Long term (current) use of antibiotics; Z79.810 Long term (current) use of selective estrogen receptor modulators (SERMs); Z79.899 Other long term (current) drug therapy
CPT/HCPCS: 71045; 71275; 80048; 82550; 82553; 83735; 84443; 84484; 85025; 93005; 93041; 94760; 96374; 96375; 99285; J1885; J2405; J2550; Q9967

== ENCOUNTER 2024-07-01 13:03 | Emergency (ER) | payer MEDICARE, MEDICAID ==
[~2024-07-01] VITALS: Ht 172.7 cm; Wt 80.5 kg
[2024-07-01] MEDS: ONDANSETRON 4MG 2ML VIAL IV ONE (13:58)
[2024-07-01 14:07] LABS: BASO # 0.1 10^3/uL (0.0-0.2); BASO % 0.4 % (0.0-1.0); EOS # 0.3 10^3/uL (0.0-0.5); EOS % 1.7 % (0.0-3.0); HEMATOCRIT 40.3 % (36.0-47.0); HEMOGLOBIN 12.8 g/dl (12.0-15.5); LYMPH # 3.7 10^3/uL (1.5-5.0); LYMPH % 24.1 % (24.0-44.0); MEAN CORPUSCULAR HGB CONC 31.8 g/dl (32.0-36.5); MEAN CORPUSCULAR VOLUME 75.6 fl (80.0-96.0); MONO # 1.2 10^3/uL (0.0-0.8); MONO % 7.8 % (2.0-8.0); NEUTROPHILS # 9.9 10^3/uL (1.5-8.5); NEUTROPHILS % 65.4 % (36.0-66.0); PLATELET COUNT, AUTOMATED 458 10^3/uL (150-450); RED BLOOD COUNT 5.33 10^6/uL (4.00-5.40); WHITE BLOOD COUNT 15.2 10^3/uL (4.0-10.0)
[2024-07-01 14:29] LABS: LIPASE 27 U/L (12-53)
[2024-07-01 14:31] LABS: ALBUMIN 3.5 G/DL (3.2-5.2); ALKALINE PHOSPHATASE 107 U/L (35-104); ALT/SGPT 41 U/L (7.0-40); AST/SGOT 70 U/L (<34); BILIRUBIN,DIRECT 0.1 MG/DL (<0.4); BILIRUBIN,TOTAL 0.4 MG/DL (0.3-1.2); MAGNESIUM LEVEL 1.9 MG/DL (1.8-2.4); TOTAL PROTEIN 8.2 G/DL (5.7-8.2)
[2024-07-01] MEDS: METOCLOPRAMIDE INJ 10MG/2ML VIAL IV ONE (14:56)
[2024-07-01] MEDS: diphenhydrAMINE 50MG/ML VIAL IV ONE (14:56)
[2024-07-01 14:57] LABS: HCG, SERUM QUALITATIVE NEGATIVE (NEGATIVE)
[2024-07-01] MEDS: ACETAMINOPHEN 500 MG TAB PO ONE (14:57)
[2024-07-01] MEDS: NS 1,000 ML IV ONE (14:58)
[2024-07-01] MEDS: KETOROLAC 30 MG/ML 1ML VIAL IV ONE (14:58)
[2024-07-01] MEDS ORDERED: KETOROLAC 30 MG/ML 1ML VIAL IM ONE (15:00)
[2024-07-01 15:06] LABS: ERYTHROCYTE SEDIMENTATION RATE 68 mm/hr (0-20)
[2024-07-01] MEDS ORDERED: ACETAMINOPHEN *IV* 1,000 MG in IV 1 EA IV ONE (16:45)
[2024-07-01] MEDS ORDERED: ISOVUE-370 76% 100ML VIAL As Ordered ONE (16:49)
[2024-07-01 17:09] LABS: PROCALCITONIN 0.05 ng/ml
[2024-07-01 17:23] VITALS: BP 117/63; TEMP 96.4; O2SAT 97
[2024-07-01] MEDS ORDERED: ACET-683 PO (18:20)
[2024-07-01] MEDS ORDERED: AZIT-12 PO (18:20)
[2024-07-01] MEDS ORDERED: METO10TA3 PO (18:20)
[2024-07-01] MEDS ORDERED: IBUP-1022 PO (18:20)
== END 2024-07-01 18:41 | disposition home or self-care (01) ==
LOC: EDBD 13:03 → M ED 13:03
DX: R51.9 Headache, unspecified (principal); R11.2 Nausea with vomiting, unspecified; G80.9 Cerebral palsy, unspecified; I48.91 Unspecified atrial fibrillation; F12.10 Cannabis abuse, uncomplicated; Z88.1 Allergy status to other antibiotic agents; Z88.7 Allergy status to serum and vaccine; Z91.030 Bee allergy status; Z91.013 Allergy to seafood; Z79.1 Long term (current) use of non-steroidal anti-inflammatories (NSAID); Z79.2 Long term (current) use of antibiotics; Z79.810 Long term (current) use of selective estrogen receptor modulators (SERMs); Z79.899 Other long term (current) drug therapy
CPT/HCPCS: 70450; 70496; 70498; 80047; 80076; 83690; 83735; 84145; 84703; 85025; 85652; 96361; 96374; 96375; 99284; J1200; J1885; J2405; J2765; Q9967

== ENCOUNTER → 2024-07-02 | Outpatient (CLI) | payer MEDICARE, MEDICAID ==
[~2024-07-02] MED LIST changes: +ACET-683 PO; +ALBUTEROL SULFATE 2.5MG/0.5ML INH NEB SOLN INH PRN; +AZIT-12 PO; +EPINEPHrine INJ 1 MG/ML 1ML AMP IM PRN; +IBUP-1022 PO; +METO10TA3 PO; +NS 1,000 ML IV SCH; +diphenhydrAMINE 50MG/ML VIAL IV PRN; +methylPREDNISolone 125MG 2ML VIAL IV PRN
[2024-07-02 11:15] VITALS: BP 150/78; O2SAT 97
[2024-07-02] MEDS: methylPREDNISolone 125MG 2ML VIAL IV ONE (11:16)
[2024-07-02] MEDS: diphenhydrAMINE 50MG/ML VIAL IV ONE (11:16)
[2024-07-02] MEDS: IRON SUCROSE 400 MG in NS 250 ML OVER 2.5 HRS IV ONE (12:20)
[2024-07-02 13:30] VITALS: BP 118/70; O2SAT 97
[2024-07-02 15:30] VITALS: BP 129/71; O2SAT 98
== END ==
LOC: M INFU 10:52
PROVIDERS: ATTEND Family Medicine
DX: D50.9 Iron deficiency anemia, unspecified (principal); Z88.7 Allergy status to serum and vaccine; Z88.1 Allergy status to other antibiotic agents; Z88.8 Allergy status to other drugs, medicaments and biological substances
CPT/HCPCS: 96365; 96366; 96375; J1200; J1756; J2919

== ENCOUNTER 2024-07-09 11:00 | Outpatient (CLI) | payer MEDICARE, MEDICAID ==
[~2024-07-09] VITALS: Ht 172.7 cm; Wt 80.5 kg
[2024-07-09 11:00] VITALS: BP 174/88; O2SAT 97
[~2024-07-09 11:00] MED LIST changes: -ADV100INH; +ADVA1AER8
[2024-07-09] MEDS: diphenhydrAMINE 50MG/ML VIAL IV ONE (11:42)
[2024-07-09] MEDS: methylPREDNISolone 125MG 2ML VIAL IV ONE (11:43)
[2024-07-09] MEDS: IRON SUCROSE 400 MG in NS 250 ML OVER 2.5 HRS IV ONE (12:04)
[2024-07-09 13:00] VITALS: BP 144/75; O2SAT 98
[2024-07-09 14:35] VITALS: BP 124/63; O2SAT 97
== END 2024-07-09 14:45 ==
LOC: M INFU 11:00
PROVIDERS: ATTEND Family Medicine
DX: D50.9 Iron deficiency anemia, unspecified (principal); Z88.1 Allergy status to other antibiotic agents; Z88.7 Allergy status to serum and vaccine; Z91.030 Bee allergy status; Z91.013 Allergy to seafood
CPT/HCPCS: 96365; 96366; 96375; J1200; J1756; J2919

== ENCOUNTER → 2024-07-15 | Outpatient (REF) | payer MEDICARE, MEDICAID ==
[~2024-07-15] MED LIST changes: -ALBUTEROL SULFATE 2.5MG/0.5ML INH NEB SOLN INH PRN; -EPINEPHrine INJ 1 MG/ML 1ML AMP IM PRN; -NS 1,000 ML IV SCH; -diphenhydrAMINE 50MG/ML VIAL IV PRN; -methylPREDNISolone 125MG 2ML VIAL IV PRN
[2024-07-15 18:10] LABS: HEMATOCRIT 39.6 % (36.0-47.0); HEMOGLOBIN 12.2 g/dl (12.0-15.5); MEAN CORPUSCULAR HEMOGLOBIN 24.7 pg (27.0-33.0); MEAN CORPUSCULAR HGB CONC 30.8 g/dl (32.0-36.5); MEAN CORPUSCULAR VOLUME 80.2 fl (80.0-96.0); PLATELET COUNT, AUTOMATED 254 10^3/uL (150-450); RED BLOOD COUNT 4.94 10^6/uL (4.00-5.40); WHITE BLOOD COUNT 10.1 10^3/uL (4.0-10.0)
[2024-07-15 18:33] LABS: ALKALINE PHOSPHATASE 111 U/L (35-104); ALT/SGPT 33 U/L (7.0-40); AST/SGOT 35 U/L (<34); BILIRUBIN,TOTAL 0.3 MG/DL (0.3-1.2); BLOOD UREA NITROGEN 15 MG/DL (9-23); CALCIUM LEVEL 9.3 MG/DL (8.5-10.1); CARBON DIOXIDE LEVEL 23 MMOL/L (20-31); CHLORIDE LEVEL 107 MMOL/L (98-107); CREATININE FOR GFR 0.53 MG/DL (0.55-1.30); GLOMERULAR FILTRATION RATE > 60.0 (>60); GLUCOSE, FASTING 83 MG/DL (60-100); IRON (FE) 65 UG/DL (50-170); PERCENT SATURATION 16.6 % (13.2-45.0); POTASSIUM SERUM 4.3 MMOL/L (3.5-5.1); SODIUM LEVEL 139 MMOL/L (136-145); TOTAL IRON BINDING CAPACITY 391 UG/DL (250-425)
[2024-07-15 18:37] LABS: FERRITIN 171.6 NG/ML (7.3-270.7)
== END ==
LOC: M SFHCADAM 11:05
PROVIDERS: ATTEND Family Medicine
DX: D50.0 Iron deficiency anemia secondary to blood loss (chronic) (principal); G80.8 Other cerebral palsy

== ENCOUNTER 2024-08-19 19:17 | Emergency (ER) | payer MEDICARE, MEDICAID ==
[~2024-08-19] VITALS: Ht 172.7 cm; Wt 81.0 kg
[2024-08-19 19:51] LABS: BASO # 0.1 10^3/uL (0.0-0.2); BASO % 0.7 % (0.0-1.0); EOS # 0.2 10^3/uL (0.0-0.5); EOS % 1.5 % (0.0-3.0); HEMOGLOBIN 13.2 g/dl (12.0-15.5); LYMPH # 2.9 10^3/uL (1.5-5.0); LYMPH % 24.5 % (24.0-44.0); MEAN CORPUSCULAR HEMOGLOBIN 27.3 pg (27.0-33.0); MEAN CORPUSCULAR VOLUME 82.6 fl (80.0-96.0); MONO # 0.6 10^3/uL (0.0-0.8); MONO % 5.4 % (2.0-8.0); NEUTROPHILS # 7.9 10^3/uL (1.5-8.5); NEUTROPHILS % 67.5 % (36.0-66.0); PLATELET COUNT, AUTOMATED 318 10^3/uL (150-450); RED BLOOD COUNT 4.84 10^6/uL (4.00-5.40); WHITE BLOOD COUNT 11.7 10^3/uL (4.0-10.0)
[2024-08-19] MEDS: HYDROMORPHONE HCL 0.5 MG/ 0.5 ML SYRINGE IV ONE (20:15)
[2024-08-19 20:21] LABS: BLOOD UREA NITROGEN 11 MG/DL (9-23); CALCIUM LEVEL 9.1 MG/DL (8.5-10.1); CARBON DIOXIDE LEVEL 20 MMOL/L (20-31); CHLORIDE LEVEL 108 MMOL/L (98-107); CK-MB VALUE MASS < 1.0 NG/ML (<3.6); CREATININE FOR GFR 0.66 MG/DL (0.55-1.30); GLOMERULAR FILTRATION RATE > 60.0 (>60); GLUCOSE, FASTING 86 MG/DL (60-100); POTASSIUM SERUM 4.4 MMOL/L (3.5-5.1); SODIUM LEVEL 137 MMOL/L (136-145)
[2024-08-19 20:24] LABS: CPK CREATINE PHOSPHOKINASE 36 U/L (34-145); MB/CK RELATIVE INDEX 2.77 (< OR =4)
[2024-08-19 20:29] LABS: HCG, SERUM QUALITATIVE NEGATIVE (NEGATIVE)
[2024-08-19 21:21] LABS: CK-MB VALUE MASS < 1.0 NG/ML (<3.6)
[2024-08-19 21:22] LABS: CPK CREATINE PHOSPHOKINASE 25 U/L (34-145)
[2024-08-19] MEDS: HYDROMORPHONE HCL 0.5 MG/ 0.5 ML SYRINGE IV PRN (21:36)
[2024-08-19] MEDS: ONDANSETRON 4MG 2ML VIAL IV ONE (22:33)
[2024-08-19 23:15] VITALS: BP 121/71; TEMP 96.7; O2SAT 98
== END 2024-08-19 23:30 | disposition home or self-care (01) ==
LOC: M ED 19:17
DX: R07.9 Chest pain, unspecified (principal); T75.4XXA Electrocution, initial encounter; J45.909 Unspecified asthma, uncomplicated; F32.A Depression, unspecified; Z86.73 Personal history of transient ischemic attack (TIA), and cerebral infarction without residual deficits; Z88.1 Allergy status to other antibiotic agents; Z88.7 Allergy status to serum and vaccine; Z88.8 Allergy status to other drugs, medicaments and biological substances; Z91.030 Bee allergy status; Z91.013 Allergy to seafood; Z79.1 Long term (current) use of non-steroidal anti-inflammatories (NSAID); Z79.2 Long term (current) use of antibiotics; Z79.810 Long term (current) use of selective estrogen receptor modulators (SERMs); Z79.899 Other long term (current) drug therapy
CPT/HCPCS: 71045; 80048; 82550; 82553; 84484; 84703; 85025; 93005; 93041; 94760; 96374; 96375; 96376; 99282; 99285; J1171; J2405

== ENCOUNTER 2024-09-18 17:28 | Emergency (ER) | payer MEDICARE, MEDICAID ==
[2024-09-18 18:49] LABS: KETONE, URINE AUTO RFX NEGATIVE (NEGATIVE); LEUKOCYTE ESTERASE UR AUTO RFX NEGATIVE (NEGATIVE); MUCUS, URINE RFX SMALL (NEGATIVE); NITRITE, URINE AUTO RFX NEGATIVE (NEGATIVE); RBC, URINE AUTO RFX 0 /HPF (0-3); SQUAM EPITHELIAL CELL UR AURFX 2 /HPF (0-6); WBC, URINE AUTO RFX 3 /HPF (0-3)
[2024-09-18] MEDS ORDERED: ACET300T52 PO (19:13)
[2024-09-18] MEDS ORDERED: PYRI1TAB5 PO (19:13)
[2024-09-18] MEDS: ACETAMINOPH W/CODEINE #3 TAB UD PO ONE (19:19)
[2024-09-18] MEDS: PHENAZOPYRIDINE 100 MG TAB PO ONE (19:19)
[2024-09-18 19:37] VITALS: BP 134/75; TEMP 97; O2SAT 98
== END 2024-09-18 19:44 | disposition home or self-care (01) ==
LOC: M ED 17:28
DX: N30.10 Interstitial cystitis (chronic) without hematuria (principal); Z88.1 Allergy status to other antibiotic agents; Z88.7 Allergy status to serum and vaccine; Z88.8 Allergy status to other drugs, medicaments and biological substances; Z91.013 Allergy to seafood; Z91.030 Bee allergy status; Z79.1 Long term (current) use of non-steroidal anti-inflammatories (NSAID); Z79.2 Long term (current) use of antibiotics; Z79.899 Other long term (current) drug therapy

== ENCOUNTER → 2024-10-29 | Outpatient (REF) | payer MEDICARE, MEDICAID ==
[~2024-10-29] MED LIST changes: +ACET300T52 PO; +PYRI1TAB5 PO
[2024-10-31 15:12] LABS: HPV APTIMA Not Detected (Not Detected)
== END ==
LOC: M SFHCWAGY 13:09
PROVIDERS: ATTEND Nurse Practitioner Family
DX: Z12.4 Encounter for screening for malignant neoplasm of cervix (principal); Z77.9 Other contact with and (suspected) exposures hazardous to health
CPT/HCPCS: 87624; G0123

== ENCOUNTER 2025-03-30 20:19 | Emergency (ER) | payer MEDICARE, MEDICAID ==
[~2025-03-30] VITALS: Ht 172.7 cm; Wt 81.4 kg
[~2025-03-30 20:19] MED LIST changes: -IBUP-1022 PO; +IBUP600T42 PO
[2025-03-30 20:22] VITALS: BP 132/82; TEMP 96.8; O2SAT 98
== END 2025-03-30 20:46 | disposition left against medical advice (07) ==
LOC: M ED 20:19
DX: Z53.21 Procedure and treatment not carried out due to patient leaving prior to being seen by health care provider (principal)

== ENCOUNTER → 2025-05-05 | Outpatient (CLI) | payer MEDICARE, MEDICAID ==
[2025-05-05 14:07] LABS: LUTEINIZING HORMONE 9.1 mIU/ML; PROLACTIN 5.65 NG/ML
[2025-05-05 14:09] LABS: PROGESTERONE 0.37 NG/ML
[2025-05-07 11:05] LABS: DRVV SCREEN 31.7 SECONDS
[2025-05-07 11:07] LABS: PTT LUPUS TYPE ANTICOAG SCREEN 0.83 (0-1.20)
[2025-05-07 23:27] LABS: CARDIOLIPIN IGA ANTIBODY < 2.0 APL-U/mL (<20.0); CARDIOLIPIN IGG ANTIBODY < 2.0 GPL-U/mL (<20.0); CARDIOLIPIN IGM ANTIBODY < 2.0 MPL-U/mL (<20.0)
== END ==
LOC: M PLALAB 10:37
PROVIDERS: ATTEND Specialist
DX: N96 Recurrent pregnancy loss (principal); Z31.5 Encounter for procreative genetic counseling

== ENCOUNTER → 2025-05-21 | Outpatient (REF) | payer MEDICARE, MEDICAID | LOC: M SFHCADAM 12:57 | PROVIDERS: ATTEND Physician Assistant | DX: L02.213 Cutaneous abscess of chest wall (principal) ==